=== PATIENT | female | born 1960 | race Caucasian/White ===

== ENCOUNTER → 2017-01-29 | Outpatient (CLI) | payer MEDICARE, OTHER ==
[2017-01-29 12:30] LABS: Basophils # (auto) 0 uL; Basophils % (auto) 0.3 % (0.0-2.0); Eosinophils # (auto) 0.1 uL; Eosinophils % (auto) 1.8 % (0.0-7.0); Hematocrit 37.2 % (36.0-46.0); Hemoglobin 12.5 g/dL (12.2-16.2); Lymphocytes # (auto) 1.6 uL; Lymphocytes % (auto) 26.5 % (10.0-50.0); Mean Corpuscular Hemoglobin 31.2 pg (28.0-32.0); Mean Corpuscular Hgb Conc. 33.6 g/dL (32.0-36.0); Mean Corpuscular Volume 92.7 fL (80.0-100.0); Mean Platelet Volume 7.4 fL (7.4-10.4); Monocytes # (auto) 0.4 uL; Neutrophils % (auto) 65.4 % (37.0-80.0); Platelet Count (auto) 303 10^3/uL (140-450); White Blood Cell 6.1 10^3/uL (4.4-10.8)
[2017-01-29 12:43] LABS: Albumin 3.4 g/dL (3.4-5.0); Alkaline Phosphatase 78 U/L (45-117); Anion Gap 7 (5-15); Aspartate Aminotransferase 27 U/L (15-37); BUN/Creatinine Ratio 19.2; Bilirubin, Total 0.4 mg/dL (0.2-1.0); Blood Urea Nitrogen 14 mg/dL (7-18); Calcium 8.8 mg/dL (8.5-10.1); Carbon Dioxide 31 mmol/L (21-32); Chloride 103 mmol/L (98-107); Cholesterol 201 mg/dL (< 200); GFR African American 106 mL/min; GFR Non-African American 87 mL/min; Glucose 113 mg/dL (74-106); HDL Cholesterol 54 mg/dL (40-59); Potassium 3.7 mmol/L (3.5-5.1); Sodium 141 mmol/L (136-145); Triglycerides 451 mg/dL (< 150)
== END | disposition home or self-care (01) ==
LOC: LAB 11:42
DX: Z12.11 Encounter for screening for malignant neoplasm of colon (principal); I10 Essential (primary) hypertension; R56.9 Unspecified convulsions; Z68.41 Body mass index [BMI] 40.0-44.9, adult
CPT/HCPCS: 36415; 80053; 80061; 80156; 83036; 85025

== ENCOUNTER 2020-07-03 12:19 | Emergency (ER) | payer OTHER, MEDICAID ==
[~2020-07-03] VITALS: Ht 165.1 cm; Wt 108.9 kg
[2020-07-03 15:53] VITALS: BP 111/47
== END 2020-07-03 17:50 | disposition left against medical advice (07) ==
LOC: ER 12:19
DX: R60.0 Localized edema (principal); I10 Essential (primary) hypertension
CPT/HCPCS: 93971

== ENCOUNTER 2020-08-28 11:39 | Emergency (ER) | payer OTHER, MEDICAID ==
[~2020-08-28] VITALS: Ht 157.5 cm; Wt 113.9 kg
[2020-08-28 11:49] VITALS: BP 136/88
[2020-08-28] MEDS ORDERED: KETOROLAC TROMETH 60MG/2ML VIAL IM ONE (14:15)
== END 2020-08-28 14:38 | disposition home or self-care (01) ==
LOC: ER 11:39
DX: M54.16 Radiculopathy, lumbar region (principal); I10 Essential (primary) hypertension
CPT/HCPCS: 93971; 99284; J1885

== ENCOUNTER 2020-08-31 22:11 | Emergency (ER) | payer OTHER, MEDICAID ==
[~2020-08-31] VITALS: Ht 167.6 cm; Wt 113.4 kg
[2020-09-01 01:13] VITALS: BP 148/55
[2020-09-01] MEDS ORDERED: KETOROLAC TROMETH 60MG/2ML VIAL IM ONE (01:15)
[2020-09-01] MEDS ORDERED: methylPREDNISolone SOD SUCC 125 MG/2 ML VL IM ONE (01:15)
== END 2020-09-01 02:36 | disposition home or self-care (01) ==
LOC: ER 22:11 → EDBD 22:11 → ER 09-01 02:36
DX: M25.80 Other specified joint disorders, unspecified joint (principal); M51.36 Other intervertebral disc degeneration, lumbar region; M47.896 Other spondylosis, lumbar region; M54.42 Lumbago with sciatica, left side; M77.8 Other enthesopathies, not elsewhere classified
CPT/HCPCS: 70450; 72125; 96372; 99285; J1885; J2930

== ENCOUNTER 2020-09-01 10:01 | Emergency (ER) | payer OTHER, MEDICAID ==
[~2020-09-01] VITALS: Ht 167.6 cm; Wt 113.4 kg
[2020-09-01 10:03] VITALS: BP 128/74
[2020-09-01] MEDS ORDERED: HYDROcodone-ACET 7.5/325MG TAB PO ONE (10:30)
[2020-09-01] MEDS ORDERED: HYDROcodone-ACET 5/325MG TAB PO ONE (11:00)
== END 2020-09-01 12:00 | disposition home or self-care (01) ==
LOC: ER 10:01
DX: S00.81XA Abrasion of other part of head, initial encounter (principal); S00.83XA Contusion of other part of head, initial encounter; I10 Essential (primary) hypertension; M51.37 Other intervertebral disc degeneration, lumbosacral region; M54.16 Radiculopathy, lumbar region; W19.XXXA Unspecified fall, initial encounter; Y93.89 Activity, other specified; Y92.89 Other specified places as the place of occurrence of the external cause; Y99.8 Other external cause status

== ENCOUNTER 2021-07-22 14:13 | Emergency (ER) | payer OTHER, MEDICAID ==
[~2021-07-22] VITALS: Ht 165.1 cm; Wt 108.9 kg
[2021-07-22] MEDS ORDERED: LORazepam 2MG/ML-1ML VIAL IV ONE (14:45)
[2021-07-22 15:05] LABS: Basophils # (auto) 0 10 ^3/uL (0-0.2); Basophils % (auto) 0.2 % (0.0-2.0); Eosinophils # (auto) 0 10 ^3/uL (0-0.8); Hematocrit 30.2 % (36.0-46.0); Lymphocytes # (auto) 0.6 10 ^3/uL (0.4-5.4); Lymphocytes % (auto) 5.3 % (10.0-50.0); Mean Corpuscular Hemoglobin 30.9 pg (28.0-32.0); Mean Corpuscular Hgb Conc. 33.1 g/dL (32.0-36.0); Mean Corpuscular Volume 93.4 fL (80.0-100.0); Monocytes % (auto) 8.6 % (0.0-12.0); Neutrophils # (auto) 9.9 10 ^3/uL (1.6-8.6); Neutrophils % (auto) 85.9 % (37.0-80.0); Red Blood Cells 3.23 10^6/uL (4.0-5.20); Red Cell Distribution Width 13.3 % (11.8-14.3); White Blood Cell 11.5 10^3/uL (4.4-10.8)
[2021-07-22 15:19] LABS: Urine Bacteria FEW /hpf (None Seen); Urine Blood Negative /uL (Negative); Urine Specific Gravity 1.023 (1.001-1.035); Urine WBC 1 /hpf (0 - 5)
[2021-07-22 15:29] LABS: Alcohol, Urine < 3.0 mg/dL (0-10); Amphetamine Screen, Urine NEGATIVE (NEGATIVE); Barbiturate Scree,Urine NEGATIVE (NEGATIVE); Benzodiazephine Screen, Urine NEGATIVE (NEGATIVE); Cannabinoid Screen, Urine POSITIVE (NEGATIVE); Cocaine Screen, Urine NEGATIVE (NEGATIVE); Opiate Scree,Urine NEGATIVE (NEGATIVE); Phencyclidine Screen, Urine NEGATIVE (NEGATIVE)
[2021-07-22 15:29] LABS: Albumin 3.3 g/dL (3.4-5.0); Anion Gap 6 (5-15); Blood Alcohol < 3.0 mg/dL (0-5); Blood Urea Nitrogen 22 mg/dL (7-18); Calcium 9.3 mg/dL (8.5-10.1); Carbon Dioxide 25 mmol/L (21-32); Chloride 111 mmol/L (98-107); Glucose 179 mg/dL (74-106); Potassium 3.5 mmol/L (3.5-5.1); Sodium 142 mmol/L (136-145)
[2021-07-22 15:33] LABS: Alanine Aminotransferase 39 U/L (13-56); Alkaline Phosphatase 32 U/L (45-117); Aspartate Aminotransferase 66 U/L (15-37); Bilirubin, Total 1.2 mg/dL (0.2-1.0); GFR African American 72 mL/min; GFR Non-African American 60 mL/min
[2021-07-22 15:41] LABS: Lactic Acid w/Reflex 2.3 mmol/L (0.4-2.0)
[2021-07-22] MEDS ORDERED: ETOMIDATE (2MG/ML) 20ML VIAL IV ONE (16:00)
[2021-07-22] MEDS ORDERED: SUCCINYLCHOLINE CHLORIDE 20 MG/ML 10ML VIAL IV ONE (16:00)
[2021-07-22] MEDS ORDERED: PROPOFOL 100 ML IV ONE (16:12)
[2021-07-22] MEDS ORDERED: PROPOFOL 100 ML IV SCH (16:30)
[2021-07-22 16:51] VITALS: BP 153/54
== END 2021-07-22 17:05 | disposition home or self-care (01) ==
LOC: EDBD 14:13 → EDUNIT# 14:13 → ER 14:13
DX: S06.6X9A Traumatic subarachnoid hemorrhage with loss of consciousness of unspecified duration, initial encounter (principal); S06.5X0A Traumatic subdural hemorrhage without loss of consciousness, initial encounter; R41.82 Altered mental status, unspecified; F10.10 Alcohol abuse, uncomplicated; I10 Essential (primary) hypertension; W18.39XA Other fall on same level, initial encounter; Y93.89 Activity, other specified; Y92.89 Other specified places as the place of occurrence of the external cause; Y99.8 Other external cause status; Y90.0 Blood alcohol level of less than 20 mg/100 ml
CPT/HCPCS: 31500; 36415; 36600; 70450; 71045; 72125; 72192; 73552; 73610; 80053; 80307; 80320; 81001; 82805; 83605; 84484; 85025; 87040; 87070; 87205; 93005; 96374; 99291; J0330; J2060; J2704; 94002

== ENCOUNTER 2021-07-28 17:51 | Inpatient (IN) | payer OTHER, MEDICAID ==
[~2021-07-28] VITALS: Ht 165.1 cm; Wt 110.7 kg
[2021-07-28 22:10] LABS: Hemoglobin 9.3 g/dL (12.2-16.2)
[2021-07-28 22:12] LABS: Hematocrit 27.4 % (36.0-46.0); Mean Corpuscular Hemoglobin 31.4 pg (28.0-32.0); Mean Corpuscular Hgb Conc. 33.9 g/dL (32.0-36.0); Mean Corpuscular Volume 92.7 fL (80.0-100.0); Red Blood Cells 2.95 10^6/uL (4.0-5.20); Red Cell Distribution Width 13.4 % (11.8-14.3); White Blood Cell 10.2 10^3/uL (4.4-10.8)
[2021-07-28 22:14] LABS: Alanine Aminotransferase 41 U/L (13-56); Anion Gap 8 (5-15); Aspartate Aminotransferase 34 U/L (15-37); BUN/Creatinine Ratio 24.2; Blood Alcohol < 3.0 mg/dL (0-5); Blood Urea Nitrogen 22 mg/dL (7-18); Calcium 9.4 mg/dL (8.5-10.1); Carbon Dioxide 26 mmol/L (21-32); Chloride 105 mmol/L (98-107); GFR African American 81 mL/min; GFR Non-African American 67 mL/min; Glucose 92 mg/dL (74-106); Potassium 3.7 mmol/L (3.5-5.1); Sodium 139 mmol/L (136-145)
[2021-07-28 22:15] LABS: Basophils % (manual) 0 (0.0-2.0); Blast Cells 0; Eosinophils % (manual) 0 (0-7); Myelocytes % 0; Promyelocytes % 0; Reactive Lymphocytes 0
[2021-07-28 22:17] LABS: Alkaline Phosphatase 55 U/L (45-117); Bilirubin, Total 1.1 mg/dL (0.2-1.0)
[2021-07-28 23:13] LABS: Band Neutrophils % (manual) 2; Lymphocytes % (manual) 9 (10.0-50.0); Metamyelocytes % 1; Monocytes % (manual) 5 (0-12)
[2021-07-29] MEDS ORDERED: MORPHINE SULFATE INJECTION 2 MG/ML SYRG IV PRN (04:15)
[2021-07-29] MEDS ORDERED: DOCUSATE SOD 100 MG CAP PO PRN (04:15)
[2021-07-29] MEDS ORDERED: D5W/SOD CHL 0.45% 1,000 ML IV SCH (04:15)
[2021-07-29] MEDS ORDERED: NITROGLYCERIN 0.4 MG SL TAB SL PRN (04:15)
[2021-07-29] MEDS ORDERED: ONDANSETRON HCL 4 MG/2 ML VIAL IV PRN (04:15)
[2021-07-29] MEDS ORDERED: LORazepam 2MG/ML-1ML VIAL IV PRN ×2 (04:45→17:30)
[2021-07-29 05:06] LABS: Urine Bacteria NONE SEEN /hpf (None Seen); Urine Blood Negative /uL (Negative); Urine Mucus FEW (None Seen); Urine Specific Gravity 1.023 (1.001-1.035); Urine WBC 2 /hpf (0 - 5)
[2021-07-29] MEDS: HYDROcodone-ACET 5/325MG TAB PO PRN ×3 (05:45→17:57)
[2021-07-29 06:14] LABS: Basophils # (auto) 0 10 ^3/uL (0-0.2); Basophils % (auto) 0.3 % (0.0-2.0); Eosinophils # (auto) 0 10 ^3/uL (0-0.8); Eosinophils % (auto) 0.5 % (0.0-7.0); Hematocrit 25.9 % (36.0-46.0); Hemoglobin 8.9 g/dL (12.2-16.2); Lymphocytes # (auto) 1.2 10 ^3/uL (0.4-5.4); Lymphocytes % (auto) 11.5 % (10.0-50.0); Mean Corpuscular Hemoglobin 32.1 pg (28.0-32.0); Mean Corpuscular Hgb Conc. 34.5 g/dL (32.0-36.0); Mean Corpuscular Volume 92.9 fL (80.0-100.0); Monocytes % (auto) 9.8 % (0.0-12.0); Neutrophils % (auto) 77.9 % (37.0-80.0); Nucleated Red Blood Cells % 0.1 %; Red Blood Cells 2.79 10^6/uL (4.0-5.20); Red Cell Distribution Width 13.2 % (11.8-14.3); White Blood Cell 10.2 10^3/uL (4.4-10.8)
[2021-07-29 06:20] LABS: Albumin 2.8 g/dL (3.4-5.0); Calcium 8.8 mg/dL (8.5-10.1); Magnesium 2.4 mg/dL (1.6-2.6); Potassium 3.5 mmol/L (3.5-5.1)
[2021-07-29 06:24] LABS: Total Protein 6.8 g/dL (6.4-8.2)
[2021-07-29] MEDS ORDERED: FAMOTIDINE (10MG/ML) 2ML VL IV SCH (10:00)
[2021-07-29] MEDS ORDERED: ASCORBIC ACID 500 MG TAB PO SCH (10:00)
[2021-07-29 10:11] LABS: Albumin 2.7 g/dL (3.4-5.0); Calcium 8.9 mg/dL (8.5-10.1); Potassium 3.3 mmol/L (3.5-5.1)
[2021-07-29 10:12] LABS: Basophils # (auto) 0 10 ^3/uL (0-0.2); Basophils % (auto) 0.4 % (0.0-2.0); Eosinophils # (auto) 0 10 ^3/uL (0-0.8); Eosinophils % (auto) 0.4 % (0.0-7.0); Hematocrit 26.4 % (36.0-46.0); Lymphocytes # (auto) 1.6 10 ^3/uL (0.4-5.4); Mean Corpuscular Hemoglobin 31.4 pg (28.0-32.0); Mean Corpuscular Volume 92.5 fL (80.0-100.0); Monocytes % (auto) 10.1 % (0.0-12.0); Neutrophils # (auto) 7.5 10 ^3/uL (1.6-8.6); Neutrophils % (auto) 73.1 % (37.0-80.0); Red Blood Cells 2.85 10^6/uL (4.0-5.20); Red Cell Distribution Width 13.5 % (11.8-14.3); White Blood Cell 10.3 10^3/uL (4.4-10.8)
[2021-07-29 10:14] LABS: Total Protein 6.8 g/dL (6.4-8.2)
[2021-07-29] MEDS: ZINC SULFATE 220mg CAP or TAB PO SCH (10:15)
[2021-07-29] MEDS: MULTIPLE VITAMIN TAB PO SCH (10:15)
[2021-07-29] MEDS ORDERED: POTASSIUM CHL 20 Meq TABLET PO ONE (16:15)
[2021-07-29] MEDS ORDERED: THIAMINE HCL 100 MG TAB PO ONE (16:15)
[2021-07-29] MEDS ORDERED: FOLIC ACID 1 MG TAB PO ONE (16:15)
[2021-07-29 16:32] LABS: Alcohol, Urine < 3.0 mg/dL (0-10); Amphetamine Screen, Urine NEGATIVE (NEGATIVE); Barbiturate Scree,Urine NEGATIVE (NEGATIVE); Benzodiazephine Screen, Urine POSITIVE (NEGATIVE); Cannabinoid Screen, Urine POSITIVE (NEGATIVE); Cocaine Screen, Urine NEGATIVE (NEGATIVE); Opiate Scree,Urine NEGATIVE (NEGATIVE); Phencyclidine Screen, Urine NEGATIVE (NEGATIVE)
[2021-07-29 17:33] LABS: Folate (Folic Acid) > 24.00 ng/mL (5.38-24)
[2021-07-29] MEDS: ACETAMINOPHEN 325 MG TAB PO PRN (20:31)
[2021-07-29] MEDS: FAMOTIDINE 20 MG TAB PO SCH (22:00)
[2021-07-29] MEDS: carBAMazepine 200 MG TAB PO SCH (22:00)
[2021-07-30 01:06] VITALS: BP 145/61
[2021-07-30] MEDS: HYDROcodone-ACET 5/325MG TAB PO PRN ×3 (01:09→16:35)
[2021-07-30] MEDS ORDERED: ENAL10TA13 PO (01:30)
[2021-07-30] MEDS ORDERED: CEPH500C PO (01:30)
[2021-07-30] MEDS ORDERED: AMLO-489 PO (01:30)
[2021-07-30] MEDS ORDERED: GAB100C PO (01:30)
[2021-07-30] MEDS ORDERED: BACL20TA PO (01:30)
[2021-07-30] MEDS ORDERED: ASPI-325 PO (01:30)
[2021-07-30] MEDS ORDERED: HYDR-4072 (01:30)
[2021-07-30] MEDS ORDERED: FLUO40CA PO (01:30)
[2021-07-30] MEDS ORDERED: NABU500T3 PO (01:30)
[2021-07-30] MEDS ORDERED: CARB200T4 PO (01:30)
[2021-07-30] MEDS ORDERED: MAGN241.6 PO (01:30)
[2021-07-30] MEDS ORDERED: POTA-167 (01:30)
[2021-07-30 05:00] VITALS: BP 138/80
[2021-07-30] MEDS: carBAMazepine 200 MG TAB PO SCH ×3 (05:03→20:29)
[2021-07-30 06:38] LABS: Albumin 2.4 g/dL (3.4-5.0); Calcium 8.8 mg/dL (8.5-10.1); Potassium 4.1 mmol/L (3.5-5.1)
[2021-07-30 06:43] LABS: BUN/Creatinine Ratio 18.5; Bilirubin, Total 0.8 mg/dL (0.2-1.0); Total Protein 5.8 g/dL (6.4-8.2)
[2021-07-30 07:13] LABS: Hematocrit 25.7 % (36.0-46.0); Hemoglobin 8.7 g/dL (12.2-16.2); Mean Corpuscular Hemoglobin 31.5 pg (28.0-32.0); Mean Corpuscular Volume 92.6 fL (80.0-100.0); Red Blood Cells 2.77 10^6/uL (4.0-5.20); Red Cell Distribution Width 13.5 % (11.8-14.3); White Blood Cell 8.7 10^3/uL (4.4-10.8)
[2021-07-30 07:17] LABS: Basophils % (manual) 0 (0.0-2.0); Blast Cells 0; Metamyelocytes % 0; Myelocytes % 0; Promyelocytes % 0; Reactive Lymphocytes 0
[2021-07-30 09:00] VITALS: BP 131/64
[2021-07-30] MEDS: THIAMINE HCL 100 MG TAB PO SCH (10:00)
[2021-07-30] MEDS: ZINC SULFATE 220mg CAP or TAB PO SCH (11:35)
[2021-07-30] MEDS: MULTIPLE VITAMIN TAB PO SCH (11:37)
[2021-07-30] MEDS: FOLIC ACID 1 MG TAB PO SCH (11:38)
[2021-07-30] MEDS: FAMOTIDINE 20 MG TAB PO SCH ×2 (11:38→20:29)
[2021-07-30 12:33] LABS: Band Neutrophils % (manual) 3; Eosinophils % (manual) 1 (0-7); Lymphocytes % (manual) 14 (10.0-50.0); Monocytes % (manual) 6 (0-12)
[2021-07-30 13:00] VITALS: BP 142/69
[2021-07-30 17:00] VITALS: BP 143/76
[2021-07-30] MEDS: ATORVASTATIN 20 MG TAB PO SCH (20:29)
[2021-07-30] MEDS: ACETAMINOPHEN 325 MG TAB PO PRN (22:20)
[2021-07-30] MEDS: chlordiazePOXIDE HCL 5 MG CAP PO PRN (22:20)
[2021-07-30 23:40] VITALS: BP 135/52
[2021-07-31] MEDS: HYDROcodone-ACET 5/325MG TAB PO PRN ×3 (01:30→18:00)
[2021-07-31 05:31] VITALS: BP 132/54
[2021-07-31] MEDS: carBAMazepine 200 MG TAB PO SCH ×3 (05:43→22:00)
[2021-07-31 08:48] VITALS: BP 152/81
[2021-07-31] MEDS: MULTIPLE VITAMIN TAB PO SCH (10:00)
[2021-07-31] MEDS: THIAMINE HCL 100 MG TAB PO SCH (10:00)
[2021-07-31] MEDS: ZINC SULFATE 220mg CAP or TAB PO SCH (10:00)
[2021-07-31] MEDS: FOLIC ACID 1 MG TAB PO SCH (10:00)
[2021-07-31] MEDS: FAMOTIDINE 20 MG TAB PO SCH ×2 (10:00→22:00)
[2021-07-31 17:14] VITALS: BP 134/69
[2021-07-31] MEDS: ATORVASTATIN 20 MG TAB PO SCH (21:59)
[2021-07-31 22:00] VITALS: BP 135/57
[2021-08-01] MEDS: HYDROcodone-ACET 5/325MG TAB PO PRN ×5 (00:06→21:05)
[2021-08-01 05:00] VITALS: BP 123/71
[2021-08-01] MEDS: carBAMazepine 200 MG TAB PO SCH ×3 (06:19→21:53)
[2021-08-01 09:00] VITALS: BP 142/55
[2021-08-01] MEDS: MULTIPLE VITAMIN TAB PO SCH (11:07)
[2021-08-01] MEDS: FOLIC ACID 1 MG TAB PO SCH (11:07)
[2021-08-01] MEDS: THIAMINE HCL 100 MG TAB PO SCH (11:07)
[2021-08-01] MEDS: FAMOTIDINE 20 MG TAB PO SCH ×2 (11:07→21:54)
[2021-08-01] MEDS: ZINC SULFATE 220mg CAP or TAB PO SCH (11:07)
[2021-08-01 13:00] VITALS: BP 109/81
[2021-08-01 16:57] VITALS: BP 127/72
[2021-08-01] MEDS: ATORVASTATIN 20 MG TAB PO SCH (21:53)
[2021-08-01 22:00] VITALS: BP 136/89
[2021-08-01] MEDS: ACETAMINOPHEN 325 MG TAB PO PRN (22:03)
[2021-08-02 05:00] VITALS: BP 115/59
[2021-08-02] MEDS: HYDROcodone-ACET 5/325MG TAB PO PRN ×4 (06:04→21:19)
[2021-08-02] MEDS: carBAMazepine 200 MG TAB PO SCH ×3 (06:04→21:12)
[2021-08-02 09:00] VITALS: BP 121/61
[2021-08-02] MEDS: MULTIPLE VITAMIN TAB PO SCH (11:06)
[2021-08-02] MEDS: ZINC SULFATE 220mg CAP or TAB PO SCH (11:06)
[2021-08-02] MEDS: FAMOTIDINE 20 MG TAB PO SCH ×2 (11:06→21:12)
[2021-08-02] MEDS: THIAMINE HCL 100 MG TAB PO SCH (11:06)
[2021-08-02 13:00] VITALS: BP 113/76
[2021-08-02 16:51] VITALS: BP 122/61
[2021-08-02] MEDS: ATORVASTATIN 20 MG TAB PO SCH (21:12)
[2021-08-02] MEDS: DOXYCYCLINE 100 MG TAB/CAP PO SCH (21:13)
[2021-08-02 22:00] VITALS: BP 140/66
[2021-08-03] MEDS: ACETAMINOPHEN 325 MG TAB PO PRN (01:22)
[2021-08-03] MEDS: HYDROcodone-ACET 5/325MG TAB PO PRN ×5 (02:37→23:56)
[2021-08-03 05:00] VITALS: BP 135/61
[2021-08-03] MEDS: carBAMazepine 200 MG TAB PO SCH ×3 (05:55→20:45)
[2021-08-03 09:00] VITALS: BP 155/81
[2021-08-03] MEDS: MULTIPLE VITAMIN TAB PO SCH (09:24)
[2021-08-03] MEDS: FAMOTIDINE 20 MG TAB PO SCH ×2 (09:24→20:45)
[2021-08-03] MEDS: DOXYCYCLINE 100 MG TAB/CAP PO SCH ×2 (09:25→20:45)
[2021-08-03] MEDS: THIAMINE HCL 100 MG TAB PO SCH (09:25)
[2021-08-03 13:00] VITALS: BP 130/65
[2021-08-03] MEDS ORDERED: levoFLOXacin 500 MG TAB PO ONE (16:00)
[2021-08-03 16:59] LABS: Urine Amorphous Crystal FEW /hpf (None Seen); Urine Bacteria NONE SEEN /hpf (None Seen); Urine Blood Negative /uL (Negative); Urine Hyaline Cast FEW /lpf (0 - 2); Urine Mucus FEW (None Seen); Urine Specific Gravity 1.031 (1.001-1.035); Urine WBC 3 /hpf (0 - 5)
[2021-08-03 17:00] VITALS: BP 117/99
[2021-08-03] MEDS: chlordiazePOXIDE HCL 5 MG CAP PO PRN (20:44)
[2021-08-03] MEDS: ATORVASTATIN 20 MG TAB PO SCH (20:45)
[2021-08-03 22:18] VITALS: BP 111/57
[2021-08-04] MEDS: carBAMazepine 200 MG TAB PO SCH ×3 (05:17→21:40)
[2021-08-04] MEDS: HYDROcodone-ACET 5/325MG TAB PO PRN ×4 (05:17→19:55)
[2021-08-04 05:30] VITALS: BP 138/78
[2021-08-04 08:45] VITALS: BP 129/79
[2021-08-04] MEDS: THIAMINE HCL 100 MG TAB PO SCH (09:15)
[2021-08-04] MEDS: levoFLOXacin 500 MG TAB PO SCH (09:15)
[2021-08-04] MEDS: ASPirin-EC 81 mg tab PO SCH (09:15)
[2021-08-04] MEDS: DOXYCYCLINE 100 MG TAB/CAP PO SCH ×2 (09:16→21:40)
[2021-08-04] MEDS: MULTIPLE VITAMIN TAB PO SCH (09:16)
[2021-08-04] MEDS: FAMOTIDINE 20 MG TAB PO SCH ×2 (09:16→21:40)
[2021-08-04 13:00] VITALS: BP 109/50
[2021-08-04] MEDS: chlordiazePOXIDE HCL 5 MG CAP PO PRN (15:46)
[2021-08-04 17:00] VITALS: BP 131/105
[2021-08-04] MEDS: ACETAMINOPHEN 325 MG TAB PO PRN (21:11)
[2021-08-04] MEDS: ATORVASTATIN 20 MG TAB PO SCH (21:40)
[2021-08-04 22:00] VITALS: BP 121/49
[2021-08-05] MEDS: HYDROcodone-ACET 5/325MG TAB PO PRN ×5 (00:06→17:34)
[2021-08-05 05:00] VITALS: BP 120/56
[2021-08-05] MEDS: carBAMazepine 200 MG TAB PO SCH ×2 (06:07→13:35)
[2021-08-05 09:50] VITALS: BP 115/62
[2021-08-05] MEDS: levoFLOXacin 500 MG TAB PO SCH (10:00)
[2021-08-05] MEDS: DOXYCYCLINE 100 MG TAB/CAP PO SCH (10:00)
[2021-08-05] MEDS: FAMOTIDINE 20 MG TAB PO SCH (10:00)
[2021-08-05] MEDS: MULTIPLE VITAMIN TAB PO SCH (10:00)
[2021-08-05] MEDS: ASPirin-EC 81 mg tab PO SCH (10:00)
[2021-08-05] MEDS: THIAMINE HCL 100 MG TAB PO SCH (10:00)
[2021-08-05 13:05] VITALS: BP 121/70
[2021-08-05] MEDS: chlordiazePOXIDE HCL 5 MG CAP PO PRN (13:35)
[2021-08-05 17:02] VITALS: BP 127/60
[2021-08-05 17:39] VITALS: BP 127/60
== END 2021-08-05 21:30 | DRG 57 ==
LOC: EDBD 17:51 → ER 17:51 → TELE 07-29 04:08 → TELE-WESTW 07-29 23:22 → WEST WING 07-31 15:19
PROVIDERS: ADMIT Nurse Practitioner Family; ATTEND Internal Medicine
DX: I69.098 Other sequelae following nontraumatic subarachnoid hemorrhage (principal); N39.0 Urinary tract infection, site not specified; Z68.41 Body mass index [BMI] 40.0-44.9, adult; S92.342A Displaced fracture of fourth metatarsal bone, left foot, initial encounter for closed fracture; S92.355A Nondisplaced fracture of fifth metatarsal bone, left foot, initial encounter for closed fracture; D64.9 Anemia, unspecified; E88.09 Other disorders of plasma-protein metabolism, not elsewhere classified; I10 Essential (primary) hypertension; G40.401 Other generalized epilepsy and epileptic syndromes, not intractable, with status epilepticus; E66.9 Obesity, unspecified; Z20.822 Contact with and (suspected) exposure to COVID-19; W18.39XA Other fall on same level, initial encounter; S92.322A Displaced fracture of second metatarsal bone, left foot, initial encounter for closed fracture; S92.332A Displaced fracture of third metatarsal bone, left foot, initial encounter for closed fracture; R41.82 Altered mental status, unspecified; E78.5 Hyperlipidemia, unspecified; R55 Syncope and collapse; F17.200 Nicotine dependence, unspecified, uncomplicated; Z82.49 Family history of ischemic heart disease and other diseases of the circulatory system; Z79.899 Other long term (current) drug therapy; Z83.3 Family history of diabetes mellitus; Y93.89 Activity, other specified; Y92.89 Other specified places as the place of occurrence of the external cause; Y99.8 Other external cause status; S02.2XXD Fracture of nasal bones, subsequent encounter for fracture with routine healing
CPT/HCPCS: 36415; 70450; 70486; 72125; 73630; 73700; 80053; 80061; 80156; 80307; 80320; 81001; 82306; 82607; 82746; 83605; 83735; 85007; 85025; 85027; 87081; 87086; 87426; 93005; 93970; 95819; 96361; 96374; 97110; 97163; 97530; G0378; J3490; J7042

== ENCOUNTER 2021-10-04 11:07 | Inpatient (IN) | payer OTHER, MEDICAID ==
[~2021-10-04] VITALS: Ht 162.6 cm; Wt 109.1 kg
[~2021-10-04 11:07] MED LIST: AMLO-489 PO; ASPI-325 PO; BACL20TA PO; CARB200T4 PO; CEPH500C PO; ENAL10TA13 PO; FLUO40CA PO; GAB100C PO; HYDR-4072; MAGN241.6 PO; NABU500T3 PO; POTA-167
[2021-10-04] MEDS ORDERED: LORazepam 2MG/ML-1ML VIAL ONE (13:12)
[2021-10-04] MEDS ORDERED: HALOPERIDOL LACTATE 5 MG/ML INJ VIAL ONE (13:12)
[2021-10-04] MEDS ORDERED: LORazepam 2MG/ML-1ML VIAL IV ONE ×3 (13:15→17:00)
[2021-10-04] MEDS ORDERED: HALOPERIDOL LACTATE 5 MG/ML INJ VIAL IM ONE ×2 (13:15→16:30)
[2021-10-04] MEDS ORDERED: SODIUM CHLORIDE 0.9% 1,000 ML IV ONE (14:15)
[2021-10-04 14:20] LABS: Basophils # (auto) 0 10 ^3/uL (0-0.2); Basophils % (auto) 0.1 % (0.0-2.0); Eosinophils # (auto) 0 10 ^3/uL (0-0.8); Eosinophils % (auto) 0.1 % (0.0-7.0); Hematocrit 35.5 % (36.0-46.0); Hemoglobin 11.8 g/dL (12.2-16.2); Lymphocytes # (auto) 0.5 10 ^3/uL (0.4-5.4); Lymphocytes % (auto) 5.9 % (10.0-50.0); Mean Corpuscular Hgb Conc. 33.1 g/dL (32.0-36.0); Mean Corpuscular Volume 87.5 fL (80.0-100.0); Monocytes # (auto) 0.5 10 ^3/uL (0-1.3); Monocytes % (auto) 5.1 % (0.0-12.0); Neutrophils % (auto) 88.8 % (37.0-80.0); Red Blood Cells 4.06 10^6/uL (4.0-5.20); Red Cell Distribution Width 13.4 % (11.8-14.3)
[2021-10-04 14:46] LABS: Albumin 3.5 g/dL (3.4-5.0); Anion Gap 3 (5-15); Blood Urea Nitrogen 19 mg/dL (7-18); Calcium 8.8 mg/dL (8.5-10.1); Carbon Dioxide 30 mmol/L (21-32); Chloride 109 mmol/L (98-107); Glucose 110 mg/dL (74-106); Magnesium 2.6 mg/dL (1.6-2.6); Potassium 3.3 mmol/L (3.5-5.1); Sodium 142 mmol/L (136-145)
[2021-10-04 14:54] LABS: Alanine Aminotransferase 45 U/L (13-56); Alkaline Phosphatase 37 U/L (45-117); Aspartate Aminotransferase 116 U/L (15-37); BUN/Creatinine Ratio 17.3; Bilirubin, Total 0.4 mg/dL (0.2-1.0); Blood Alcohol < 3.0 mg/dL (0-5); GFR African American 65 mL/min; GFR Non-African American 53 mL/min; Total Protein 6.8 g/dL (6.4-8.2)
[2021-10-04 14:58] LABS: Urine Bacteria FEW /hpf (None Seen); Urine Blood Negative /uL (Negative); Urine Hyaline Cast MOD /lpf (0 - 2); Urine Specific Gravity 1.011 (1.001-1.035); Urine WBC <1 /hpf (0 - 5)
[2021-10-04 15:01] LABS: Alcohol, Urine < 3.0 mg/dL (0-10); Amphetamine Screen, Urine NEGATIVE (NEGATIVE); Barbiturate Scree,Urine NEGATIVE (NEGATIVE); Benzodiazephine Screen, Urine NEGATIVE (NEGATIVE); Cannabinoid Screen, Urine POSITIVE (NEGATIVE); Cocaine Screen, Urine NEGATIVE (NEGATIVE); Opiate Scree,Urine NEGATIVE (NEGATIVE); Phencyclidine Screen, Urine NEGATIVE (NEGATIVE)
[2021-10-04] MEDS ORDERED: MORPHINE SULFATE INJECTION 2 MG/ML SYRG IV PRN ×3 (18:15→22:15)
[2021-10-04] MEDS ORDERED: NITROGLYCERIN 0.4 MG SL TAB SL PRN ×2 (18:15→22:15)
[2021-10-04] MEDS ORDERED: POTASSIUM CHL 20MEQ/50ML 50 ML IV ONE (21:30)
[2021-10-04] MEDS: SODIUM CHLORIDE 0.9% 1,000 ML IV SCH (21:45)
[2021-10-04] MEDS: ATORVASTATIN 20 MG TAB PO SCH ×2 (22:00→23:00)
[2021-10-04] MEDS ORDERED: DOCUSATE SOD 100 MG CAP PO PRN (22:15)
[2021-10-04] MEDS ORDERED: ALUM & MAG HYDROX-SIMETH LIQ(MAALOX) 30 ML PO PRN (22:15)
[2021-10-04] MEDS ORDERED: ACETAMINOPHEN 325 MG TAB PO PRN (22:15)
[2021-10-04] MEDS ORDERED: SODIUM CHLORIDE 0.9% 1,000 ML IV SCH (22:15)
[2021-10-04] MEDS ORDERED: CLINDAMYCIN 600MG IV 50 ML IV ONE (22:15)
[2021-10-04] MEDS ORDERED: hydrALAZINE HCL 20 MG/ML VL IV PRN (22:15)
[2021-10-04] MEDS ORDERED: ONDANSETRON HCL 4 MG/2 ML VIAL IV PRN (22:15)
[2021-10-04] MEDS ORDERED: cefTRIAXone 1GM/50ML D5W 50 ML IV ONE (22:15)
[2021-10-04] MEDS: GABAPENTIN 100 MG CAP PO SCH ×2 (22:48→23:00)
[2021-10-04] MEDS: carBAMazepine 200 MG TAB PO SCH ×2 (22:49→23:00)
[2021-10-04] MEDS: diazePAM 5 MG TAB PO ONE ×2 (22:49→23:00)
[2021-10-04 23:22] LABS: Cholesterol 211 mg/dL (< 200); HDL Cholesterol 68 mg/dL (40-59); LDL Cholesterol 111 mg/dL (< 100); Triglycerides 138 mg/dL (< 150)
[2021-10-05] MEDS ORDERED: diphenhdrAMINE HCL 50 MG/1 ML VL IV ONE ×3 (03:00→13:37)
[2021-10-05 03:38] LABS: Basophils # (auto) 0 10 ^3/uL (0-0.2); Basophils % (auto) 0.3 % (0.0-2.0); Eosinophils # (auto) 0 10 ^3/uL (0-0.8); Hematocrit 37.9 % (36.0-46.0); Hemoglobin 12.4 g/dL (12.2-16.2); Lymphocytes # (auto) 0.9 10 ^3/uL (0.4-5.4); Lymphocytes % (auto) 8.3 % (10.0-50.0); Mean Corpuscular Hemoglobin 28.6 pg (28.0-32.0); Mean Corpuscular Hgb Conc. 32.7 g/dL (32.0-36.0); Mean Corpuscular Volume 87.7 fL (80.0-100.0); Monocytes # (auto) 0.6 10 ^3/uL (0-1.3); Neutrophils # (auto) 9.7 10 ^3/uL (1.6-8.6); Neutrophils % (auto) 86.4 % (37.0-80.0); Red Blood Cells 4.32 10^6/uL (4.0-5.20); Red Cell Distribution Width 13.5 % (11.8-14.3); White Blood Cell 11.3 10^3/uL (4.4-10.8)
[2021-10-05 03:51] LABS: Partial Thromboplastin Time 21.6 sec (23.6-33.0)
[2021-10-05 03:53] LABS: Albumin 3.7 g/dL (3.4-5.0); Calcium 9.2 mg/dL (8.5-10.1); Magnesium 2.3 mg/dL (1.6-2.6); Potassium 3.8 mmol/L (3.5-5.1); Uric Acid 4.8 mg/dL (2.6-6.0)
[2021-10-05 03:58] LABS: BUN/Creatinine Ratio 13.6; Bilirubin, Total 0.4 mg/dL (0.2-1.0); Phosphorus 1.8 mg/dL (2.5-4.90); Total Protein 7.4 g/dL (6.4-8.2)
[2021-10-05 05:29] LABS: Salicylate 4.7 mg/dL (2.8-20.0)
[2021-10-05 05:32] LABS: Acetaminophen < 2.0 ug/mL (10-30)
[2021-10-05 05:38] LABS: Carbamazepine (Tegretol) 18.7 ug/mL (4-12)
[2021-10-05] MEDS: GABAPENTIN 100 MG CAP PO SCH ×3 (06:00→22:03)
[2021-10-05] MEDS: CLINDAMYCIN 600MG IV 50 ML IV SCH ×3 (06:08→22:22)
[2021-10-05] MEDS: LORazepam 2MG/ML-1ML VIAL IV PRN ×3 (06:19→12:01)
[2021-10-05] MEDS ORDERED: cefTRIAXone 1GM/50ML D5W 50 ML IV SCH (09:00)
[2021-10-05] MEDS: FLUoxetine HCL 20 MG CAP PO SCH (10:00)
[2021-10-05] MEDS ORDERED: MAGNESIUM OXIDE 400 MG TAB PO SCH (10:00)
[2021-10-05] MEDS: ASPirin-EC 81 mg tab PO SCH (10:00)
[2021-10-05] MEDS: MULTIPLE VITAMINS W/ MINERALS TAB PO SCH (10:00)
[2021-10-05] MEDS ORDERED: POTASSIUM CHL 10 Meq TABLET PO SCH (10:00)
[2021-10-05] MEDS: HALOPERIDOL LACTATE 5 MG/ML INJ VIAL IM PRN ×2 (10:08)
[2021-10-05] MEDS: ENOXAPARIN SOD 40 MG/0.4 ML SYRINGE SC SCH (10:15)
[2021-10-05] MEDS ORDERED: diphenhdrAMINE HCL 50 MG/1 ML VL ONE ×2 (10:53→13:37)
[2021-10-05 12:15] LABS: Albumin 3.8 g/dL (3.4-5.0); BUN/Creatinine Ratio 14.4; Calcium 9.7 mg/dL (8.5-10.1); Potassium 4.1 mmol/L (3.5-5.1)
[2021-10-05 12:18] LABS: Bilirubin, Total 0.4 mg/dL (0.2-1.0); Total Protein 7.2 g/dL (6.4-8.2)
[2021-10-05] MEDS: SODIUM CHLORIDE 0.9% 1,000 ML IV SCH (14:39)
[2021-10-05 19:01] LABS: Albumin 3.2 g/dL (3.4-5.0); Calcium 8.8 mg/dL (8.5-10.1); Potassium 4.7 mmol/L (3.5-5.1)
[2021-10-05 19:04] LABS: BUN/Creatinine Ratio 15.5
[2021-10-05 19:07] LABS: Bilirubin, Total 0.4 mg/dL (0.2-1.0); Total Protein 6.4 g/dL (6.4-8.2)
[2021-10-05] MEDS: carBAMazepine 200 MG TAB PO SCH (22:00)
[2021-10-06 04:56] LABS: Basophils # (auto) 0 10 ^3/uL (0-0.2); Basophils % (auto) 0.7 % (0.0-2.0); Eosinophils # (auto) 0.1 10 ^3/uL (0-0.8); Eosinophils % (auto) 1.8 % (0.0-7.0); Hemoglobin 11.1 g/dL (12.2-16.2); Lymphocytes # (auto) 1.1 10 ^3/uL (0.4-5.4); Lymphocytes % (auto) 19.6 % (10.0-50.0); Mean Corpuscular Hemoglobin 29.5 pg (28.0-32.0); Mean Corpuscular Hgb Conc. 33.8 g/dL (32.0-36.0); Mean Corpuscular Volume 87.4 fL (80.0-100.0); Monocytes # (auto) 0.3 10 ^3/uL (0-1.3); Monocytes % (auto) 6.4 % (0.0-12.0); Neutrophils # (auto) 3.9 10 ^3/uL (1.6-8.6); Neutrophils % (auto) 71.5 % (37.0-80.0); Nucleated Red Blood Cells % 0.1 %; Red Blood Cells 3.78 10^6/uL (4.0-5.20); Red Cell Distribution Width 13.4 % (11.8-14.3); White Blood Cell 5.5 10^3/uL (4.4-10.8)
[2021-10-06 05:11] LABS: Albumin 3.1 g/dL (3.4-5.0); Potassium 3.4 mmol/L (3.5-5.1)
[2021-10-06 05:13] LABS: BUN/Creatinine Ratio 12.9
[2021-10-06 05:16] LABS: Bilirubin, Total 0.4 mg/dL (0.2-1.0); Total Protein 6.3 g/dL (6.4-8.2)
[2021-10-06] MEDS: HYDROcodone-ACET 5/325MG TAB PO PRN ×3 (07:54→20:30)
[2021-10-06] MEDS: GABAPENTIN 100 MG CAP PO SCH (09:15)
[2021-10-06] MEDS ORDERED: LORazepam 2MG/ML-1ML VIAL IV PRN (09:30)
[2021-10-06] MEDS: SODIUM CHLORIDE 0.9% 1,000 ML IV SCH ×2 (10:14→22:43)
[2021-10-06] MEDS: ASPirin-EC 81 mg tab PO SCH (10:14)
[2021-10-06] MEDS: CHOLECALCIFEROL (VITD3) 2,000 UNIT CAP/TAB PO SCH (10:14)
[2021-10-06] MEDS: MULTIPLE VITAMINS W/ MINERALS TAB PO SCH (10:14)
[2021-10-06] MEDS: FLUoxetine HCL 20 MG CAP PO SCH (10:14)
[2021-10-06] MEDS: ENOXAPARIN SOD 40 MG/0.4 ML SYRINGE SC SCH (10:15)
[2021-10-06 10:41] VITALS: BP 143/65
[2021-10-06] MEDS: FOLIC ACID 1 MG, MULTIPLE VITAMIN 10 ML, MAGNESIUM SULF SDV 50% 8 MEQ, THIAMINE INJ 100... INJ SCH ×5 (12:00)
[2021-10-06 13:00] VITALS: BP 127/66
[2021-10-06] MEDS: GABAPENTIN 300 MG CAP PO SCH ×2 (14:00→21:55)
[2021-10-06 21:30] VITALS: BP 151/80
[2021-10-06] MEDS: ATORVASTATIN 20 MG TAB PO SCH (21:54)
[2021-10-06] MEDS: LORazepam 2MG/ML-1ML VIAL IV PRN (22:38)
[2021-10-07] MEDS: HYDROcodone-ACET 5/325MG TAB PO PRN ×3 (02:24→11:44)
[2021-10-07 05:00] VITALS: BP 152/78
[2021-10-07] MEDS: GABAPENTIN 300 MG CAP PO SCH ×2 (05:31→15:27)
[2021-10-07] MEDS: carBAMazepine 200 MG TAB PO SCH ×2 (05:32→15:27)
[2021-10-07 09:00] VITALS: BP 145/53
[2021-10-07] MEDS: ENOXAPARIN SOD 40 MG/0.4 ML SYRINGE SC SCH (10:50)
[2021-10-07] MEDS: MULTIPLE VITAMINS W/ MINERALS TAB PO SCH (10:50)
[2021-10-07] MEDS: FLUoxetine HCL 20 MG CAP PO SCH (10:50)
[2021-10-07] MEDS: CHOLECALCIFEROL (VITD3) 2,000 UNIT CAP/TAB PO SCH (10:50)
[2021-10-07] MEDS: ASPirin-EC 81 mg tab PO SCH (10:50)
[2021-10-07] MEDS: LORazepam 2MG/ML-1ML VIAL IV PRN (11:01)
[2021-10-07 12:25] LABS: Magnesium 2.4 mg/dL (1.6-2.6); Potassium 3.6 mmol/L (3.5-5.1)
[2021-10-07 13:00] VITALS: BP 146/74
[2021-10-07] MEDS ORDERED: CHOL20007 PO (13:13)
[2021-10-07] MEDS ORDERED: CARB200T4 PO (13:13)
[2021-10-07] MEDS: FOLIC ACID 1 MG, MULTIPLE VITAMIN 10 ML, MAGNESIUM SULF SDV 50% 8 MEQ, THIAMINE INJ 100... INJ SCH ×5 (15:26)
[2021-10-07] MEDS: SODIUM CHLORIDE 0.9% 1,000 ML IV SCH (16:25)
[2021-10-07 16:59] VITALS: BP 155/75
== END 2021-10-07 18:11 | disposition home or self-care (01) | DRG 100 ==
LOC: ER 11:07 → EDBD 11:07 → TELE 18:11 → TELE-WESTW 10-06 10:52
PROVIDERS: ADMIT Hospitalist; ATTEND Internal Medicine
DX: G40.901 Epilepsy, unspecified, not intractable, with status epilepticus (principal); G93.41 Metabolic encephalopathy; N17.0 Acute kidney failure with tubular necrosis; N39.0 Urinary tract infection, site not specified; F11.20 Opioid dependence, uncomplicated; Z68.41 Body mass index [BMI] 40.0-44.9, adult; N18.31 Chronic kidney disease, stage 3a; E66.01 Morbid (severe) obesity due to excess calories; F32.9 Major depressive disorder, single episode, unspecified; Z20.822 Contact with and (suspected) exposure to COVID-19; F41.9 Anxiety disorder, unspecified; T42.6X5A Adverse effect of other antiepileptic and sedative-hypnotic drugs, initial encounter; K75.81 Nonalcoholic steatohepatitis (NASH); E55.9 Vitamin D deficiency, unspecified; E78.5 Hyperlipidemia, unspecified; E87.6 Hypokalemia; F10.20 Alcohol dependence, uncomplicated; I12.9 Hypertensive chronic kidney disease with stage 1 through stage 4 chronic kidney disease, or unspecified chronic kidney disease; M19.90 Unspecified osteoarthritis, unspecified site; Z83.3 Family history of diabetes mellitus; Z91.19 Patient's noncompliance with other medical treatment and regimen; Z79.899 Other long term (current) drug therapy; Z82.49 Family history of ischemic heart disease and other diseases of the circulatory system; Z87.820 Personal history of traumatic brain injury; Y93.89 Activity, other specified; Y92.89 Other specified places as the place of occurrence of the external cause; Y99.8 Other external cause status
CPT/HCPCS: 36415; 70450; 70551; 71045; 80053; 80061; 80156; 80307; 80320; 80329; 81001; 82306; 83036; 83735; 83880; 84100; 84132; 84443; 84484; 84550; 85025; 85379; 85610; 85730; 87040; 87086; 87426; 93005; 96365; 96372; 96375; 96376; 97163; G0378; J0696; J3490

== ENCOUNTER 2021-12-12 14:59 | Inpatient (IN) | payer OTHER, MEDICAID ==
[~2021-12-12] VITALS: Ht 160 cm; Wt 101.4 kg
[2021-12-12] MEDS ORDERED: SODIUM CHLORIDE 0.9% 1,000 ML IV ONE ×2 (15:15→18:30)
[2021-12-12 16:20] LABS: Urine Bacteria FEW /hpf (None Seen); Urine Blood Negative /uL (Negative); Urine Hyaline Cast FEW /lpf (0 - 2); Urine Mucus FEW (None Seen); Urine Specific Gravity 1.022 (1.001-1.035); Urine WBC 2 /hpf (0 - 5)
[2021-12-12 16:34] LABS: Alcohol, Urine < 3.0 mg/dL (0-10); Amphetamine Screen, Urine NEGATIVE (NEGATIVE); Barbiturate Scree,Urine NEGATIVE (NEGATIVE); Benzodiazephine Screen, Urine NEGATIVE (NEGATIVE); Cannabinoid Screen, Urine POSITIVE (NEGATIVE); Cocaine Screen, Urine NEGATIVE (NEGATIVE); Opiate Scree,Urine NEGATIVE (NEGATIVE); Phencyclidine Screen, Urine NEGATIVE (NEGATIVE)
[2021-12-12 16:55] LABS: Basophils # (auto) 0 10 ^3/uL (0-0.2); Basophils % (auto) 0.2 % (0.0-2.0); Eosinophils # (auto) 0 10 ^3/uL (0-0.8); Eosinophils % (auto) 0.1 % (0.0-7.0); Hematocrit 32.9 % (36.0-46.0); Lymphocytes # (auto) 0.7 10 ^3/uL (0.4-5.4); Lymphocytes % (auto) 5.1 % (10.0-50.0); Mean Corpuscular Hemoglobin 29.1 pg (28.0-32.0); Mean Corpuscular Hgb Conc. 33.5 g/dL (32.0-36.0); Mean Corpuscular Volume 86.9 fL (80.0-100.0); Monocytes % (auto) 7.5 % (0.0-12.0); Neutrophils # (auto) 11.9 10 ^3/uL (1.6-8.6); Neutrophils % (auto) 87.1 % (37.0-80.0); Red Blood Cells 3.78 10^6/uL (4.0-5.20); White Blood Cell 13.6 10^3/uL (4.4-10.8)
[2021-12-12 17:12] LABS: INR 1.02 (0.9-1.15); Partial Thromboplastin Time 21.6 sec (23.6-33.0)
[2021-12-12 17:16] LABS: Albumin 3.7 g/dL (3.4-5.0); Calcium 9.6 mg/dL (8.5-10.1); Potassium 3.2 mmol/L (3.5-5.1)
[2021-12-12 17:19] LABS: BUN/Creatinine Ratio 24.5; Bilirubin, Total 0.9 mg/dL (0.2-1.0); Total Protein 7.2 g/dL (6.4-8.2)
[2021-12-12] MEDS ORDERED: SODIUM BICARBONATE 8.4 % INJ 50ML VIAL IV ONE (17:30)
[2021-12-12] MEDS ORDERED: ONDANSETRON HCL 4 MG/2 ML VIAL IV PRN (18:15)
[2021-12-12] MEDS ORDERED: SODIUM CHLORIDE 0.9% 2,000 ML IV ONE (18:30)
[2021-12-12] MEDS ORDERED: cefTRIAXone 1GM/50ML D5W 50 ML IV ONE (19:00)
[2021-12-12 20:13] LABS: Magnesium 2.6 mg/dL (1.6-2.6)
[2021-12-12 20:24] LABS: INR 0.98 (0.9-1.15)
[2021-12-12] MEDS ORDERED: HEPARIN SODIUM (PORCINE) 5000 UNITS/ML 1ML VIAL SC SCH (22:00)
[2021-12-13] MEDS: MORPHINE SULFATE 4 MG/ML SYR/VIAL IV PRN ×2 (00:47→11:07)
[2021-12-13 05:40] LABS: Basophils # (auto) 0 10 ^3/uL (0-0.2); Basophils % (auto) 0.2 % (0.0-2.0); Eosinophils # (auto) 0 10 ^3/uL (0-0.8); Eosinophils % (auto) 0.3 % (0.0-7.0); Hematocrit 28.5 % (36.0-46.0); Lymphocytes # (auto) 1.2 10 ^3/uL (0.4-5.4); Lymphocytes % (auto) 15.9 % (10.0-50.0); Mean Corpuscular Hemoglobin 30.1 pg (28.0-32.0); Mean Corpuscular Volume 86.1 fL (80.0-100.0); Monocytes # (auto) 0.8 10 ^3/uL (0-1.3); Monocytes % (auto) 9.9 % (0.0-12.0); Neutrophils # (auto) 5.8 10 ^3/uL (1.6-8.6); Neutrophils % (auto) 73.7 % (37.0-80.0); Red Blood Cells 3.31 10^6/uL (4.0-5.20); Red Cell Distribution Width 14.4 % (11.8-14.3); White Blood Cell 7.9 10^3/uL (4.4-10.8)
[2021-12-13 06:04] LABS: BUN/Creatinine Ratio 37.4; Calcium 9.1 mg/dL (8.5-10.1); Potassium 3.6 mmol/L (3.5-5.1)
[2021-12-13 06:06] LABS: Bilirubin, Total 0.7 mg/dL (0.2-1.0); Total Protein 6.3 g/dL (6.4-8.2)
[2021-12-13] MEDS ORDERED: cefTRIAXone 1GM/50ML D5W 50 ML IV SCH (09:00)
[2021-12-13] MEDS ORDERED: SODIUM CHLORIDE 0.9% 1,000 ML IV SCH (09:30)
[2021-12-13 09:37] VITALS: BP 138/70
[2021-12-13] MEDS ORDERED: ENOXAPARIN SOD 30 MG/0.3 ML SYRINGE SC SCH (10:00)
[2021-12-13] MEDS ORDERED: ALBUTEROL SULF HFA 90MCG INH 200DOSE IN PRN (10:30)
[2021-12-13] MEDS: LACTATED RINGER'S 1,000 ML IV SCH ×2 (10:59→21:23)
[2021-12-13] MEDS ORDERED: ALBUTEROL SULF 2.5 MG/0.5ML(0.5%) NEB SOLN NEB PRN (11:15)
[2021-12-13 11:22] LABS: Sodium Urine 9 mmol/L (40-220)
[2021-12-13 12:25] LABS: Creatinine, Urine < 30.0 mg/dL (30.0-125.0)
[2021-12-13 13:43] VITALS: BP 116/55
[2021-12-13 17:30] VITALS: BP 110/74
[2021-12-13] MEDS ORDERED: CARB200T4 PO (18:01)
[2021-12-13 20:00] VITALS: BP 117/63
[2021-12-13] MEDS: GABAPENTIN 100 MG CAP PO SCH (21:23)
[2021-12-13] MEDS: carBAMazepine 200 MG TAB PO SCH (21:24)
[2021-12-13 22:00] VITALS: BP 117/63
[2021-12-13] MEDS ORDERED: PATIENTS OWN MEDICATION (Baclofen 1 TAB) PO SCH (22:00)
[2021-12-14 04:38] VITALS: BP 119/58
[2021-12-14 05:40] LABS: Basophils # (auto) 0 10 ^3/uL (0-0.2); Basophils % (auto) 0.4 % (0.0-2.0); Eosinophils # (auto) 0.1 10 ^3/uL (0-0.8); Eosinophils % (auto) 1.6 % (0.0-7.0); Hematocrit 26.7 % (36.0-46.0); Hemoglobin 9.6 g/dL (12.2-16.2); Lymphocytes % (auto) 30.1 % (10.0-50.0); Mean Corpuscular Hemoglobin 31.2 pg (28.0-32.0); Mean Corpuscular Hgb Conc. 36.1 g/dL (32.0-36.0); Mean Corpuscular Volume 86.4 fL (80.0-100.0); Monocytes # (auto) 0.6 10 ^3/uL (0-1.3); Monocytes % (auto) 8.7 % (0.0-12.0); Neutrophils % (auto) 59.2 % (37.0-80.0); Red Blood Cells 3.09 10^6/uL (4.0-5.20); Red Cell Distribution Width 14.6 % (11.8-14.3); White Blood Cell 6.7 10^3/uL (4.4-10.8)
[2021-12-14 05:54] LABS: Calcium 9.3 mg/dL (8.5-10.1); Potassium 3.6 mmol/L (3.5-5.1)
[2021-12-14 05:59] LABS: Magnesium 1.9 mg/dL (1.6-2.6)
[2021-12-14] MEDS: GABAPENTIN 100 MG CAP PO SCH ×3 (06:26→21:12)
[2021-12-14] MEDS: LACTATED RINGER'S 1,000 ML IV SCH (06:26)
[2021-12-14 08:00] VITALS: BP 117/63
[2021-12-14 09:00] VITALS: BP 123/70
[2021-12-14] MEDS: FLUoxetine HCL 20 MG CAP PO SCH (09:28)
[2021-12-14] MEDS: MAGNESIUM OXIDE 400 MG TAB PO SCH (09:28)
[2021-12-14 13:00] VITALS: BP 116/64
[2021-12-14] MEDS ORDERED: ACETAMINOPHEN 325 MG TAB PO PRN (16:30)
[2021-12-14] MEDS ORDERED: HYDROcodone-ACET 7.5/325MG TAB PO PRN (16:30)
[2021-12-14 17:00] VITALS: BP 123/69
[2021-12-14] MEDS: carBAMazepine 200 MG TAB PO SCH (21:13)
[2021-12-14 21:32] VITALS: BP 107/59
[2021-12-15 05:00] VITALS: BP 120/64
[2021-12-15] MEDS: GABAPENTIN 100 MG CAP PO SCH ×3 (06:08→21:34)
[2021-12-15 06:15] LABS: Basophils # (auto) 0 10 ^3/uL (0-0.2); Basophils % (auto) 0.6 % (0.0-2.0); Eosinophils # (auto) 0.1 10 ^3/uL (0-0.8); Eosinophils % (auto) 2.2 % (0.0-7.0); Hemoglobin 9.3 g/dL (12.2-16.2); Lymphocytes # (auto) 2.1 10 ^3/uL (0.4-5.4); Lymphocytes % (auto) 30.7 % (10.0-50.0); Mean Corpuscular Hemoglobin 30.4 pg (28.0-32.0); Mean Corpuscular Hgb Conc. 34.6 g/dL (32.0-36.0); Monocytes # (auto) 0.6 10 ^3/uL (0-1.3); Monocytes % (auto) 8.7 % (0.0-12.0); Neutrophils # (auto) 3.9 10 ^3/uL (1.6-8.6); Neutrophils % (auto) 57.8 % (37.0-80.0); Red Blood Cells 3.06 10^6/uL (4.0-5.20); Red Cell Distribution Width 14.2 % (11.8-14.3); White Blood Cell 6.8 10^3/uL (4.4-10.8)
[2021-12-15 08:00] VITALS: BP 119/59
[2021-12-15] MEDS: MAGNESIUM OXIDE 400 MG TAB PO SCH (10:19)
[2021-12-15] MEDS: FLUoxetine HCL 20 MG CAP PO SCH (10:19)
[2021-12-15 12:00] VITALS: BP 135/80
[2021-12-15] MEDS ORDERED: hydrOXYzine 25 MG TAB or CAP PO PRN (12:15)
[2021-12-15] MEDS ORDERED: GADOTERATE MEG 10 MMOL/20ml INJ (0.5MMOL/ml) IV ONE (12:42)
[2021-12-15 17:00] VITALS: BP 147/89
[2021-12-15] MEDS ORDERED: LORazepam 2MG/ML-1ML VIAL IV PRN (20:00)
[2021-12-15 21:33] VITALS: BP 128/58
[2021-12-15] MEDS: carBAMazepine 200 MG TAB PO SCH (21:35)
[2021-12-16 04:59] VITALS: BP 122/50
[2021-12-16] MEDS: GABAPENTIN 100 MG CAP PO SCH ×2 (06:13→14:21)
[2021-12-16] MEDS: carBAMazepine 200 MG TAB PO SCH ×2 (06:13→14:21)
[2021-12-16] MEDS: MAGNESIUM OXIDE 400 MG TAB PO SCH (08:55)
[2021-12-16 09:00] VITALS: BP 124/60
[2021-12-16] MEDS ORDERED: FLUoxetine HCL 20 MG CAP PO SCH (10:00)
[2021-12-16] MEDS ORDERED: MULTTAB75 PO (10:34)
[2021-12-16] MEDS ORDERED: THIA100T10 GT (10:34)
[2021-12-16] MEDS ORDERED: FOLITAB22 PO (10:34)
[2021-12-16 13:00] VITALS: BP 133/84
== END 2021-12-16 15:49 | DRG 640 ==
LOC: ER 14:59 → EDBD 14:59 → OVERFLOW 18:01 → WEST WING 12-13 09:16
PROVIDERS: ADMIT Registered Nurse; ATTEND Hospitalist
DX: E86.0 Dehydration (principal); N17.0 Acute kidney failure with tubular necrosis; G93.41 Metabolic encephalopathy; M62.82 Rhabdomyolysis; F07.81 Postconcussional syndrome; W18.30XA Fall on same level, unspecified, initial encounter; D64.9 Anemia, unspecified; D72.829 Elevated white blood cell count, unspecified; E66.9 Obesity, unspecified; E78.5 Hyperlipidemia, unspecified; M65.9 Synovitis and tenosynovitis, unspecified; I10 Essential (primary) hypertension; F32.A Depression, unspecified; K57.30 Diverticulosis of large intestine without perforation or abscess without bleeding; Z60.2 Problems related to living alone; N28.89 Other specified disorders of kidney and ureter; F12.10 Cannabis abuse, uncomplicated; F41.9 Anxiety disorder, unspecified; G62.9 Polyneuropathy, unspecified; Z20.822 Contact with and (suspected) exposure to COVID-19; S82.891A Other fracture of right lower leg, initial encounter for closed fracture; W18.39XA Other fall on same level, initial encounter; S00.531A Contusion of lip, initial encounter; G40.409 Other generalized epilepsy and epileptic syndromes, not intractable, without status epilepticus; Z79.899 Other long term (current) drug therapy; Z83.3 Family history of diabetes mellitus; Z86.73 Personal history of transient ischemic attack (TIA), and cerebral infarction without residual deficits; Z82.49 Family history of ischemic heart disease and other diseases of the circulatory system; Z68.39 Body mass index [BMI] 39.0-39.9, adult; Y93.89 Activity, other specified; Y92.098 Other place in other non-institutional residence as the place of occurrence of the external cause; Y99.8 Other external cause status
CPT/HCPCS: 36415; 70450; 70486; 71045; 72192; 73502; 73560; 73600; 73723; 76775; 80048; 80053; 80061; 80156; 80307; 80320; 81001; 82140; 82247; 82550; 82570; 83036; 83735; 84075; 84133; 84300; 84484; 85025; 85610; 85730; 87040; 93306; 93886; 96361; 96365; 96372; 96375; 97110; 97116; 97163; 97530; 99291; G0378; J0696

== ENCOUNTER 2022-02-16 09:40 | Emergency (ER) | payer OTHER, MEDICAID ==
[~2022-02-16] VITALS: Ht 165.1 cm; Wt 110.2 kg
[~2022-02-16 09:40] MED LIST changes: +FOLITAB22 PO; +MULTTAB75 PO; +THIA100T10 GT
[2022-02-16 09:51] VITALS: BP 104/41
[2022-02-16 12:02] LABS: Basophils # (auto) 0 10 ^3/uL (0-0.2); Basophils % (auto) 0.6 % (0.0-2.0); Eosinophils # (auto) 0.1 10 ^3/uL (0-0.8); Eosinophils % (auto) 2.8 % (0.0-7.0); Hematocrit 33.3 % (36.0-46.0); Hemoglobin 11.3 g/dL (12.2-16.2); Lymphocytes # (auto) 1.3 10 ^3/uL (0.4-5.4); Lymphocytes % (auto) 25.8 % (10.0-50.0); Mean Corpuscular Hemoglobin 30.6 pg (28.0-32.0); Mean Corpuscular Hgb Conc. 34.1 g/dL (32.0-36.0); Mean Corpuscular Volume 89.7 fL (80.0-100.0); Monocytes # (auto) 0.5 10 ^3/uL (0-1.3); Monocytes % (auto) 9.3 % (0.0-12.0); Neutrophils # (auto) 3.2 10 ^3/uL (1.6-8.6); Neutrophils % (auto) 61.5 % (37.0-80.0); Red Blood Cells 3.71 10^6/uL (4.0-5.20); Red Cell Distribution Width 13.3 % (11.8-14.3); White Blood Cell 5.1 10^3/uL (4.4-10.8)
[2022-02-16 12:18] LABS: INR 0.98 (0.9-1.15); Partial Thromboplastin Time 22.9 sec (23.6-33.0)
[2022-02-16 12:36] LABS: Albumin 3.5 g/dL (3.4-5.0); Calcium 9.3 mg/dL (8.5-10.1); Magnesium 2.5 mg/dL (1.6-2.6)
[2022-02-16 12:40] LABS: BUN/Creatinine Ratio 23.2; Bilirubin, Total 0.3 mg/dL (0.2-1.0); Total Protein 7.6 g/dL (6.4-8.2)
[2022-02-16 15:20] LABS: Urine Bacteria FEW /hpf (None Seen); Urine Blood Negative /uL (Negative); Urine Hyaline Cast FEW /lpf (0 - 2); Urine Specific Gravity 1.013 (1.001-1.035); Urine WBC 2 /hpf (0 - 5)
== END 2022-02-16 15:42 | disposition left against medical advice (07) ==
LOC: ER 09:40
DX: R22.43 Localized swelling, mass and lump, lower limb, bilateral (principal); Z79.82 Long term (current) use of aspirin; Z79.899 Other long term (current) drug therapy
CPT/HCPCS: 36415; 71045; 80053; 81001; 83735; 83880; 84484; 85025; 85610; 85730; 93005; 93970

== ENCOUNTER 2022-10-23 19:51 | Inpatient (IN) | payer OTHER, MEDICAID ==
[~2022-10-23] VITALS: Ht 172.7 cm; Wt 124.9 kg
[2022-10-23 22:39] LABS: Basophils # (auto) 0 10 ^3/uL (0-0.2); Eosinophils # (auto) 0.2 10 ^3/uL (0-0.8); Lymphocytes # (auto) 1.6 10 ^3/uL (0.4-5.4); Monocytes # (auto) 0.9 10 ^3/uL (0-1.3); Nucleated Red Blood Cells % 0.1 %
[2022-10-23 22:42] LABS: Basophils % (auto) 0.1 % (0.0-2.0); Hematocrit 20.4 % (36.0-46.0); Lymphocytes % (auto) 14.9 % (10.0-50.0); Mean Corpuscular Hemoglobin 32.4 pg (28.0-32.0); Mean Corpuscular Hgb Conc. 33.6 g/dL (32.0-36.0); Mean Corpuscular Volume 96.4 fL (80.0-100.0); Monocytes % (auto) 8.4 % (0.0-12.0); Neutrophils # (auto) 7.9 10 ^3/uL (1.6-8.6); Neutrophils % (auto) 74.6 % (37.0-80.0); Red Blood Cells 2.12 10^6/uL (4.0-5.20); Red Cell Distribution Width 14.8 % (11.8-14.3); White Blood Cell 10.6 10^3/uL (4.4-10.8)
[2022-10-23 22:47] LABS: Hemoglobin 6.9 g/dL (12.2-16.2)
[2022-10-23 22:57] LABS: Albumin 2.9 g/dL (3.4-5.0); Calcium 9.7 mg/dL (8.5-10.1); Potassium 3.6 mmol/L (3.5-5.1)
[2022-10-23 22:59] LABS: BUN/Creatinine Ratio 33.9
[2022-10-23 23:02] LABS: Bilirubin, Total 0.6 mg/dL (0.2-1.0); Total Protein 6.8 g/dL (6.4-8.2)
[2022-10-23] MEDS ORDERED: PANTOPRAZOLE 40 MG/10 ML VIAL INJ IV ONE (23:15)
[2022-10-24] MEDS ORDERED: DEXTROSE (50%) 50ML SYRG IV PRN (03:15)
[2022-10-24] MEDS ORDERED: NITROGLYCERIN 0.4 MG SL TAB SL PRN (03:15)
[2022-10-24] MEDS ORDERED: MORPHINE SULFATE INJ 2 MG/ml SYRG IV PRN (03:15)
[2022-10-24] MEDS ORDERED: chlordiazePOXIDE HCL 25 MG CAP PO PRN (03:15)
[2022-10-24] MEDS ORDERED: ONDANSETRON HCL 4 MG/2 ML VIAL IV PRN (03:15)
[2022-10-24 03:46] LABS: % Iron Saturation 9.2 % (15-50)
[2022-10-24 05:40] VITALS: BP 128/57
[2022-10-24 05:55] VITALS: BP 135/53
[2022-10-24] MEDS: InsuLIN REG 1unit/0.01ml Soln (100units/ml) SC SCH ×4 (07:00→22:17)
[2022-10-24] MEDS: ACCU-CHEK COMFORT CURVE STRIP VI SCH ×4 (07:02→22:14)
[2022-10-24 08:03] VITALS: BP 137/52
[2022-10-24 08:30] VITALS: BP 146/62
[2022-10-24 08:45] VITALS: BP 146/67
[2022-10-24] MEDS ORDERED: LOSARTAN POTASSIUM 50 MG TAB PO SCH (10:00)
[2022-10-24 12:00] VITALS: BP 120/67
[2022-10-24] MEDS ORDERED: FOLIC ACID 1 MG, MULTIPLE VITAMIN 10 ML, MAGNESIUM SULF SDV 50% 8 MEQ, THIAMINE INJ 100... INJ SCH ×5 (12:00)
[2022-10-24 13:10] LABS: Alcohol, Urine < 3.0 mg/dL (0-10); Barbiturate Scree,Urine NEGATIVE (NEGATIVE); Benzodiazephine Screen, Urine NEGATIVE (NEGATIVE); Cannabinoid Screen, Urine NEGATIVE (NEGATIVE); Cocaine Screen, Urine NEGATIVE (NEGATIVE)
[2022-10-24 13:13] LABS: Amphetamine Screen, Urine NEGATIVE (NEGATIVE); Opiate Scree,Urine NEGATIVE (NEGATIVE); Phencyclidine Screen, Urine NEGATIVE (NEGATIVE)
[2022-10-24] MEDS: FUROSEMIDE 40 MG TAB PO SCH (13:38)
[2022-10-24] MEDS: PANTOPRAZOLE 40 MG TAB PO SCH (13:38)
[2022-10-24] MEDS: SODIUM CHLORIDE 0.9% 1,000 ML IV SCH (13:39)
[2022-10-24 14:09] LABS: INR 0.97 (0.9-1.15); Partial Thromboplastin Time 22.3 sec (24.6-33.4)
[2022-10-24 19:08] LABS: Albumin 2.9 g/dL (3.4-5.0); BUN/Creatinine Ratio 36.5; Calcium 9.7 mg/dL (8.5-10.1); Potassium 3.4 mmol/L (3.5-5.1)
[2022-10-24 19:10] LABS: Bilirubin, Total 0.6 mg/dL (0.2-1.0); Total Protein 7.1 g/dL (6.4-8.2)
[2022-10-24 19:38] LABS: Basophils # (auto) 0 10 ^3/uL (0-0.2); Basophils % (auto) 0.3 % (0.0-2.0); Eosinophils # (auto) 0.2 10 ^3/uL (0-0.8); Hematocrit 27.8 % (36.0-46.0); Hemoglobin 9.5 g/dL (12.2-16.2); Lymphocytes % (auto) 13.3 % (10.0-50.0); Mean Corpuscular Hemoglobin 31.5 pg (28.0-32.0); Mean Corpuscular Volume 92.5 fL (80.0-100.0); Monocytes # (auto) 0.9 10 ^3/uL (0-1.3); Monocytes % (auto) 11.1 % (0.0-12.0); Neutrophils # (auto) 5.8 10 ^3/uL (1.6-8.6); Neutrophils % (auto) 73.3 % (37.0-80.0); Nucleated Red Blood Cells % 0.2 %; Red Blood Cells 3.01 10^6/uL (4.0-5.20); Red Cell Distribution Width 16.3 % (11.8-14.3); White Blood Cell 7.9 10^3/uL (4.4-10.8)
[2022-10-24] MEDS: ATORVASTATIN 20 MG TAB PO SCH (22:14)
[2022-10-25] MEDS: SODIUM CHLORIDE 0.9% 1,000 ML IV SCH ×2 (00:35→17:02)
[2022-10-25] MEDS: TEMAZEPAM 15 MG CAP PO PRN ×2 (01:16→22:26)
[2022-10-25] MEDS: ACETAMINOPHEN 325 MG TAB PO PRN ×2 (01:17→22:26)
[2022-10-25 06:48] LABS: Basophils # (auto) 0 10 ^3/uL (0-0.2); Eosinophils # (auto) 0.1 10 ^3/uL (0-0.8); Red Cell Distribution Width 16.3 % (11.8-14.3)
[2022-10-25 06:51] LABS: Basophils % (auto) 0.2 % (0.0-2.0); Eosinophils % (auto) 1.5 % (0.0-7.0); Hematocrit 26.7 % (36.0-46.0); Hemoglobin 8.9 g/dL (12.2-16.2); Lymphocytes # (auto) 1.3 10 ^3/uL (0.4-5.4); Lymphocytes % (auto) 18.4 % (10.0-50.0); Mean Corpuscular Hemoglobin 30.9 pg (28.0-32.0); Mean Corpuscular Hgb Conc. 33.5 g/dL (32.0-36.0); Mean Corpuscular Volume 92.4 fL (80.0-100.0); Monocytes # (auto) 0.9 10 ^3/uL (0-1.3); Monocytes % (auto) 12.4 % (0.0-12.0); Neutrophils # (auto) 4.6 10 ^3/uL (1.6-8.6); Neutrophils % (auto) 67.5 % (37.0-80.0); Nucleated Red Blood Cells % 0.1 %; Red Blood Cells 2.89 10^6/uL (4.0-5.20); White Blood Cell 6.9 10^3/uL (4.4-10.8)
[2022-10-25 06:57] LABS: Potassium 3.3 mmol/L (3.5-5.1)
[2022-10-25 07:04] LABS: Folate (Folic Acid) 23.19 ng/mL (5.38-24)
[2022-10-25] MEDS: ACCU-CHEK COMFORT CURVE STRIP VI SCH ×4 (07:06→21:38)
[2022-10-25 07:12] LABS: Albumin 2.7 g/dL (3.4-5.0); BUN/Creatinine Ratio 40.5; Bilirubin, Total 0.5 mg/dL (0.2-1.0); Calcium 8.9 mg/dL (8.5-10.1); Total Protein 6.5 g/dL (6.4-8.2)
[2022-10-25] MEDS: InsuLIN REG 1unit/0.01ml Soln (100units/ml) SC SCH ×4 (07:12→21:38)
[2022-10-25] MEDS ORDERED: POTASSIUM CHL 20MEQ/100ML 100 ML IV ONE (08:30)
[2022-10-25] MEDS: PANTOPRAZOLE 40 MG TAB PO SCH (11:19)
[2022-10-25] MEDS: B-COMPLEX W/ C & FOLIC ACID(NEPHROVITE TAB) PO SCH (11:20)
[2022-10-25] MEDS: FUROSEMIDE 40 MG TAB PO SCH (11:20)
[2022-10-25] MEDS: THIAMINE HCL 100 MG TAB PO SCH (11:20)
[2022-10-25] MEDS ORDERED: LIDOCAINE VISCOUS 2% 15ML UD ONE (12:34)
[2022-10-25] MEDS ORDERED: diphenhdrAMINE HCL 50 MG/1 ML VL ONE (12:34)
[2022-10-25] MEDS ORDERED: fentaNYL CITRATE 100 MCG/2 ML VL ONE (12:35)
[2022-10-25] MEDS ORDERED: MIDAZOLAM HCL 2MG/2ML 2ml VIAL (1mg/ml) ONE (12:35)
[2022-10-25 12:48] VITALS: BP 117/48
[2022-10-25 13:11] VITALS: BP 117/48
[2022-10-25] MEDS ORDERED: LORazepam 2MG/ML-1ML VIAL IV PRN (16:00)
[2022-10-25] MEDS ORDERED: LORazepam 2MG/ML-1ML VIAL ONE (16:02)
[2022-10-25 17:00] VITALS: BP 116/54
[2022-10-25 20:00] VITALS: BP 132/63
[2022-10-25] MEDS: ATORVASTATIN 20 MG TAB PO SCH (21:43)
[2022-10-25 22:00] VITALS: BP 132/63
[2022-10-26] MEDS: SODIUM CHLORIDE 0.9% 1,000 ML IV SCH ×2 (03:32→14:45)
[2022-10-26 05:00] VITALS: BP 161/59
[2022-10-26] MEDS: ACETAMINOPHEN 325 MG TAB PO PRN (05:38)
[2022-10-26] MEDS: InsuLIN REG 1unit/0.01ml Soln (100units/ml) SC SCH ×4 (06:07→21:40)
[2022-10-26] MEDS: ACCU-CHEK COMFORT CURVE STRIP VI SCH ×4 (06:07→21:39)
[2022-10-26 06:34] LABS: Calcium 8.9 mg/dL (8.5-10.1)
[2022-10-26 06:36] LABS: BUN/Creatinine Ratio 30.6
[2022-10-26 08:00] VITALS: BP 126/65
[2022-10-26 09:00] VITALS: BP 126/65
[2022-10-26] MEDS: FUROSEMIDE 40 MG TAB PO SCH (11:42)
[2022-10-26] MEDS: amLODIPine BESYLATE 5 MG TAB PO SCH (11:42)
[2022-10-26] MEDS: ENALAPRIL MALEATE 10 MG TAB PO SCH (11:43)
[2022-10-26] MEDS: PANTOPRAZOLE 40 MG TAB PO SCH (11:43)
[2022-10-26] MEDS: FLUoxetine HCL 20 MG CAP PO SCH (11:43)
[2022-10-26] MEDS: THIAMINE HCL 100 MG TAB PO SCH (11:43)
[2022-10-26] MEDS: B-COMPLEX W/ C & FOLIC ACID(NEPHROVITE TAB) PO SCH (11:44)
[2022-10-26] MEDS: LACTULOSE 20Gm/30ML SOLN PO SCH ×2 (11:44→18:00)
[2022-10-26 13:00] VITALS: BP 143/71
[2022-10-26] MEDS ORDERED: POTASSIUM CHL 20 Meq TABLET PO ONE (13:15)
[2022-10-26] MEDS: GABAPENTIN 100 MG CAP PO SCH ×2 (14:45→21:38)
[2022-10-26] MEDS: LORazepam 0.5 MG TAB PO PRN (14:46)
[2022-10-26] MEDS: carBAMazepine 200 MG TAB PO SCH ×2 (14:46→21:38)
[2022-10-26 16:49] VITALS: BP 129/60
[2022-10-26] MEDS: FERROUS SULFATE 325mg EC TAB PO SCH (18:16)
[2022-10-26 20:00] VITALS: BP 121/56
[2022-10-26] MEDS: ATORVASTATIN 20 MG TAB PO SCH (21:38)
[2022-10-27] VITALS (7 sets, daily range): BP systolic 113–129; BP diastolic 47–81
[2022-10-27] MEDS ORDERED: LORazepam 2MG/ML-1ML VIAL IV PRN
[2022-10-27] MEDS: carBAMazepine 200 MG TAB PO SCH ×3 (05:34→21:06)
[2022-10-27] MEDS: LACTULOSE 20Gm/30ML SOLN PO SCH ×4 (05:34→18:07)
[2022-10-27] MEDS: GABAPENTIN 100 MG CAP PO SCH ×3 (05:34→21:06)
[2022-10-27] MEDS: ACCU-CHEK COMFORT CURVE STRIP VI SCH ×4 (06:36→21:32)
[2022-10-27] MEDS: InsuLIN REG 1unit/0.01ml Soln (100units/ml) SC SCH ×4 (06:36→21:32)
[2022-10-27 06:43] LABS: Calcium 9.4 mg/dL (8.5-10.1); Potassium 3.9 mmol/L (3.5-5.1)
[2022-10-27 06:46] LABS: BUN/Creatinine Ratio 22.4
[2022-10-27] MEDS ORDERED: LIDOCAINE 1%HCL (LOCAL ANESTH) 10 ML MDV ONE (07:03)
[2022-10-27] MEDS ORDERED: PROPOFOL 10 MG/ML 20 ML IV ONE (08:26)
[2022-10-27] MEDS ORDERED: LIDOCAINE VISCOUS 2% 15ML UD ONE (08:31)
[2022-10-27] MEDS: FERROUS SULFATE 325mg EC TAB PO SCH ×2 (10:08→18:08)
[2022-10-27] MEDS: THIAMINE HCL 100 MG TAB PO SCH (10:08)
[2022-10-27] MEDS: FLUoxetine HCL 20 MG CAP PO SCH (10:09)
[2022-10-27] MEDS: ENALAPRIL MALEATE 10 MG TAB PO SCH (10:09)
[2022-10-27] MEDS: B-COMPLEX W/ C & FOLIC ACID(NEPHROVITE TAB) PO SCH (10:09)
[2022-10-27] MEDS: PANTOPRAZOLE 40 MG TAB PO SCH (10:09)
[2022-10-27] MEDS: amLODIPine BESYLATE 5 MG TAB PO SCH (10:10)
[2022-10-27] MEDS: FUROSEMIDE 40 MG TAB PO SCH (10:10)
[2022-10-27] MEDS: SODIUM CHLORIDE 0.9% 1,000 ML IV SCH (10:11)
[2022-10-27] MEDS: ACETAMINOPHEN 325 MG TAB PO PRN (16:47)
[2022-10-27] MEDS: ATORVASTATIN 20 MG TAB PO SCH (21:06)
[2022-10-28] MEDS: LACTULOSE 20Gm/30ML SOLN PO SCH ×5 (00:40→23:29)
[2022-10-28] MEDS: ACETAMINOPHEN 325 MG TAB PO PRN ×2 (00:41→21:23)
[2022-10-28 04:29] VITALS: BP 132/60
[2022-10-28] MEDS: SODIUM CHLORIDE 0.9% 1,000 ML IV SCH (05:20)
[2022-10-28] MEDS: GABAPENTIN 100 MG CAP PO SCH ×3 (05:24→21:23)
[2022-10-28] MEDS: carBAMazepine 200 MG TAB PO SCH ×3 (05:24→21:23)
[2022-10-28] MEDS: ACCU-CHEK COMFORT CURVE STRIP VI SCH ×4 (06:35→21:29)
[2022-10-28] MEDS: InsuLIN REG 1unit/0.01ml Soln (100units/ml) SC SCH ×4 (06:36→21:29)
[2022-10-28 09:30] VITALS: BP 154/70
[2022-10-28] MEDS: FUROSEMIDE 40 MG TAB PO SCH (10:55)
[2022-10-28] MEDS: FERROUS SULFATE 325mg EC TAB PO SCH ×2 (10:55→17:47)
[2022-10-28] MEDS: B-COMPLEX W/ C & FOLIC ACID(NEPHROVITE TAB) PO SCH (10:55)
[2022-10-28] MEDS: THIAMINE HCL 100 MG TAB PO SCH (10:56)
[2022-10-28] MEDS: PANTOPRAZOLE 40 MG TAB PO SCH (10:56)
[2022-10-28] MEDS: FLUoxetine HCL 20 MG CAP PO SCH (10:56)
[2022-10-28] MEDS: amLODIPine BESYLATE 5 MG TAB PO SCH (10:56)
[2022-10-28] MEDS: ENALAPRIL MALEATE 10 MG TAB PO SCH (10:57)
[2022-10-28 13:30] VITALS: BP 115/54
[2022-10-28] MEDS: LORazepam 0.5 MG TAB PO PRN (16:39)
[2022-10-28 16:40] VITALS: BP 131/68
[2022-10-28] MEDS: ATORVASTATIN 20 MG TAB PO SCH (21:23)
[2022-10-28] MEDS: TEMAZEPAM 15 MG CAP PO PRN (21:24)
[2022-10-28 21:47] VITALS: BP 111/53
[2022-10-29] MEDS: SODIUM CHLORIDE 0.9% 1,000 ML IV SCH ×2 (01:15→21:15)
[2022-10-29] MEDS: LORazepam 0.5 MG TAB PO PRN ×2 (02:30→22:33)
[2022-10-29 02:47] VITALS: BP 147/49
[2022-10-29] MEDS: GABAPENTIN 100 MG CAP PO SCH ×3 (05:42→22:33)
[2022-10-29] MEDS: carBAMazepine 200 MG TAB PO SCH ×3 (05:42→22:33)
[2022-10-29] MEDS: ACCU-CHEK COMFORT CURVE STRIP VI SCH ×4 (05:43→22:44)
[2022-10-29] MEDS: LACTULOSE 20Gm/30ML SOLN PO SCH ×4 (05:43→23:09)
[2022-10-29] MEDS: InsuLIN REG 1unit/0.01ml Soln (100units/ml) SC SCH ×4 (05:44→22:00)
[2022-10-29 06:07] LABS: Basophils # (auto) 0 10 ^3/uL (0-0.2); Basophils % (auto) 0.5 % (0.0-2.0); Eosinophils # (auto) 0.2 10 ^3/uL (0-0.8); Eosinophils % (auto) 2.3 % (0.0-7.0); Hemoglobin 9.6 g/dL (12.2-16.2); Lymphocytes # (auto) 1.6 10 ^3/uL (0.4-5.4); Monocytes # (auto) 0.6 10 ^3/uL (0-1.3)
[2022-10-29 06:09] LABS: Hematocrit 29.1 % (36.0-46.0); Lymphocytes % (auto) 20.9 % (10.0-50.0); Mean Corpuscular Hemoglobin 31.6 pg (28.0-32.0); Mean Corpuscular Hgb Conc. 33.1 g/dL (32.0-36.0); Mean Corpuscular Volume 95.7 fL (80.0-100.0); Monocytes % (auto) 7.6 % (0.0-12.0); Neutrophils # (auto) 5.1 10 ^3/uL (1.6-8.6); Neutrophils % (auto) 68.7 % (37.0-80.0); Nucleated Red Blood Cells % 0.2 %; Red Blood Cells 3.04 10^6/uL (4.0-5.20); Red Cell Distribution Width 15.8 % (11.8-14.3); White Blood Cell 7.4 10^3/uL (4.4-10.8)
[2022-10-29 06:24] LABS: Albumin 2.8 g/dL (3.4-5.0); Calcium 8.9 mg/dL (8.5-10.1); Potassium 3.4 mmol/L (3.5-5.1)
[2022-10-29 06:28] LABS: BUN/Creatinine Ratio 15.7; Bilirubin, Total 0.6 mg/dL (0.2-1.0); Total Protein 6.6 g/dL (6.4-8.2)
[2022-10-29] MEDS: FERROUS SULFATE 325mg EC TAB PO SCH ×2 (08:07→17:47)
[2022-10-29 08:24] VITALS: BP 145/58
[2022-10-29] MEDS: amLODIPine BESYLATE 5 MG TAB PO SCH (10:07)
[2022-10-29] MEDS: B-COMPLEX W/ C & FOLIC ACID(NEPHROVITE TAB) PO SCH (10:07)
[2022-10-29] MEDS: THIAMINE HCL 100 MG TAB PO SCH (10:07)
[2022-10-29] MEDS: FUROSEMIDE 40 MG TAB PO SCH (10:07)
[2022-10-29] MEDS: PANTOPRAZOLE 40 MG TAB PO SCH (10:08)
[2022-10-29] MEDS: FLUoxetine HCL 10 MG CAP PO SCH (10:08)
[2022-10-29] MEDS: ENALAPRIL MALEATE 10 MG TAB PO SCH (10:08)
[2022-10-29 12:24] VITALS: BP 155/68
[2022-10-29 17:08] VITALS: BP 145/75
[2022-10-29 22:18] VITALS: BP 115/53
[2022-10-29] MEDS: ACETAMINOPHEN 325 MG TAB PO PRN (22:32)
[2022-10-29] MEDS: ATORVASTATIN 20 MG TAB PO SCH (22:33)
[2022-10-30 05:13] VITALS: BP 146/62
[2022-10-30] MEDS: ACETAMINOPHEN 325 MG TAB PO PRN (05:38)
[2022-10-30] MEDS: GABAPENTIN 100 MG CAP PO SCH ×2 (05:38→14:09)
[2022-10-30] MEDS: carBAMazepine 200 MG TAB PO SCH ×2 (05:38→14:09)
[2022-10-30] MEDS: LACTULOSE 20Gm/30ML SOLN PO SCH ×3 (05:38→18:00)
[2022-10-30] MEDS: InsuLIN REG 1unit/0.01ml Soln (100units/ml) SC SCH ×3 (05:45→16:44)
[2022-10-30] MEDS: ACCU-CHEK COMFORT CURVE STRIP VI SCH ×3 (05:45→16:44)
[2022-10-30 08:45] VITALS: BP 118/49
[2022-10-30] MEDS: B-COMPLEX W/ C & FOLIC ACID(NEPHROVITE TAB) PO SCH (09:23)
[2022-10-30] MEDS: PANTOPRAZOLE 40 MG TAB PO SCH (09:23)
[2022-10-30] MEDS: FERROUS SULFATE 325mg EC TAB PO SCH ×2 (09:23→18:25)
[2022-10-30] MEDS: FLUoxetine HCL 10 MG CAP PO SCH (09:24)
[2022-10-30] MEDS: THIAMINE HCL 100 MG TAB PO SCH (09:24)
[2022-10-30] MEDS: amLODIPine BESYLATE 5 MG TAB PO SCH (09:25)
[2022-10-30] MEDS: FUROSEMIDE 40 MG TAB PO SCH (09:25)
[2022-10-30] MEDS: ENALAPRIL MALEATE 10 MG TAB PO SCH (09:25)
[2022-10-30] MEDS: LORazepam 0.5 MG TAB PO PRN (09:34)
[2022-10-30] MEDS ORDERED: HYDROcodone-ACET 7.5/325MG TAB PO PRN (11:00)
[2022-10-30 13:00] VITALS: BP 122/55
[2022-10-30] MEDS: SODIUM CHLORIDE 0.9% 1,000 ML IV SCH (16:48)
[2022-10-30 17:00] VITALS: BP 118/55
[2022-10-30 17:27] VITALS: BP 122/55
== END 2022-10-30 19:21 | DRG 380 ==
LOC: ER 19:51 → EDBD 19:51 → TELE 10-24 03:13 → TELE-E-ADS 10-25 14:10 → TELE-CENTR 10-25 16:15
PROVIDERS: ADMIT Nurse Practitioner; ATTEND Family Medicine
PROC: 30233N1 Transfusion of Nonautologous Red Blood Cells into Peripheral Vein, Percutaneous Approach (ICD-10-PCS; 2022-10-24)
PROC: 05H933Z Insertion of Infusion Device into Right Brachial Vein, Percutaneous Approach (ICD-10-PCS; 2022-10-25)
PROC: B54MZZA Ultrasonography of Right Upper Extremity Veins, Guidance (ICD-10-PCS; 2022-10-25)
PROC: 0DB68ZX Excision of Stomach, Via Natural or Artificial Opening Endoscopic, Diagnostic (ICD-10-PCS; 2022-10-27)
PROC: 0DB98ZX Excision of Duodenum, Via Natural or Artificial Opening Endoscopic, Diagnostic (ICD-10-PCS; principal; 2022-10-27 08:36)
DX: K22.11 Ulcer of esophagus with bleeding (principal); E43 Unspecified severe protein-calorie malnutrition; G93.41 Metabolic encephalopathy; I13.0 Hypertensive heart and chronic kidney disease with heart failure and stage 1 through stage 4 chronic kidney disease, or unspecified chronic kidney disease; N17.9 Acute kidney failure, unspecified; E72.20 Disorder of urea cycle metabolism, unspecified; F33.1 Major depressive disorder, recurrent, moderate; F10.239 Alcohol dependence with withdrawal, unspecified; K29.71 Gastritis, unspecified, with bleeding; K25.4 Chronic or unspecified gastric ulcer with hemorrhage; D50.0 Iron deficiency anemia secondary to blood loss (chronic); Z98.84 Bariatric surgery status; G40.409 Other generalized epilepsy and epileptic syndromes, not intractable, without status epilepticus; E78.5 Hyperlipidemia, unspecified; E87.6 Hypokalemia; K44.9 Diaphragmatic hernia without obstruction or gangrene; E11.22 Type 2 diabetes mellitus with diabetic chronic kidney disease; I50.9 Heart failure, unspecified; N18.30 Chronic kidney disease, stage 3 unspecified; Z60.2 Problems related to living alone; F41.9 Anxiety disorder, unspecified; K21.9 Gastro-esophageal reflux disease without esophagitis; G47.50 Parasomnia, unspecified; S80.12XA Contusion of left lower leg, initial encounter; S80.11XA Contusion of right lower leg, initial encounter; R29.6 Repeated falls; X58.XXXA Exposure to other specified factors, initial encounter; S09.90XA Unspecified injury of head, initial encounter; Z68.30 Body mass index [BMI] 30.0-30.9, adult; Z79.899 Other long term (current) drug therapy; Z82.49 Family history of ischemic heart disease and other diseases of the circulatory system; Z83.3 Family history of diabetes mellitus; Z86.718 Personal history of other venous thrombosis and embolism; Z86.73 Personal history of transient ischemic attack (TIA), and cerebral infarction without residual deficits; Z87.11 Personal history of peptic ulcer disease; Z87.828 Personal history of other (healed) physical injury and trauma; Z90.49 Acquired absence of other specified parts of digestive tract; Z71.41 Alcohol abuse counseling and surveillance of alcoholic; Z91.81 History of falling; Y93.89 Activity, other specified; Y92.89 Other specified places as the place of occurrence of the external cause; Y99.8 Other external cause status
CPT/HCPCS: 36415; 70450; 71045; 74176; 80048; 80053; 80307; 82140; 82270; 82607; 82746; 82962; 83540; 83550; 83880; 84484; 84702; 85025; 85610; 85730; 86850; 86900; 86901; 86920; 87426; 95819; 97163; 99291; C9113; G0378; J1815; J2001; J2250; J2704; J3480

== ENCOUNTER 2022-12-05 11:00 | Inpatient (IN) | payer OTHER, MEDICAID ==
[~2022-12-05] VITALS: Ht 165.1 cm; Wt 106.1 kg
[2022-12-05 12:14] LABS: Albumin 3.8 g/dL (3.4-5.0); Anion Gap 8 (5-15); BUN/Creatinine Ratio 28.7; Blood Urea Nitrogen 31 mg/dL (7-18); Calcium 9.5 mg/dL (8.5-10.1); Carbon Dioxide 27 mmol/L (21-32); Chloride 109 mmol/L (98-107); GFR African American 66 mL/min; GFR Non-African American 54 mL/min; Glucose 81 mg/dL (74-106); Magnesium 1.5 mg/dL (1.6-2.6); Sodium 144 mmol/L (136-145)
[2022-12-05 12:17] LABS: Alanine Aminotransferase 58 U/L (13-56); Alkaline Phosphatase 79 U/L (45-117); Aspartate Aminotransferase 25 U/L (15-37); Bilirubin, Total 0.6 mg/dL (0.2-1.0); Total Protein 8.1 g/dL (6.4-8.2)
[2022-12-05 12:43] LABS: Basophils # (auto) 0 10 ^3/uL (0-0.2); Basophils % (auto) 0.7 % (0.0-2.0); Eosinophils # (auto) 0 10 ^3/uL (0-0.8); Eosinophils % (auto) 0.7 % (0.0-7.0); Hemoglobin 12.4 g/dL (12.2-16.2); Lymphocytes # (auto) 1.5 10 ^3/uL (0.4-5.4); Lymphocytes % (auto) 21.3 % (10.0-50.0); Mean Corpuscular Hemoglobin 29.9 pg (28.0-32.0); Mean Corpuscular Hgb Conc. 33.5 g/dL (32.0-36.0); Monocytes # (auto) 0.6 10 ^3/uL (0-1.3); Monocytes % (auto) 9.3 % (0.0-12.0); Neutrophils # (auto) 4.6 10 ^3/uL (1.6-8.6); Nucleated Red Blood Cells % 0.1 %; Red Blood Cells 4.16 10^6/uL (4.0-5.20); Red Cell Distribution Width 13.9 % (11.8-14.3); White Blood Cell 6.8 10^3/uL (4.4-10.8)
[2022-12-05] MEDS ORDERED: chlordiazePOXIDE HCL 25 MG CAP PO ONE (17:15)
[2022-12-05] MEDS ORDERED: MORPHINE SULFATE INJ 2 MG/ml SYRG IV PRN (18:45)
[2022-12-05] MEDS ORDERED: PANTOPRAZOLE 40 MG/10 ML VIAL INJ IV ONE (18:45)
[2022-12-05] MEDS ORDERED: ACETAMINOPHEN 325 MG TAB PO PRN (18:45)
[2022-12-05] MEDS ORDERED: NITROGLYCERIN 0.4 MG SL TAB SL PRN (18:45)
[2022-12-05] MEDS ORDERED: DEXTROSE (50%) 50ML SYRG IV PRN (19:00)
[2022-12-05] MEDS ORDERED: chlordiazePOXIDE HCL 25 MG CAP PO PRN (19:45)
[2022-12-05] MEDS ORDERED: FOLIC ACID 1 MG TAB PO ONE (19:45)
[2022-12-05] MEDS ORDERED: MULTIPLE VITAMIN TAB PO ONE (19:45)
[2022-12-05] MEDS ORDERED: THIAMINE 100mg/ml INJ (200mg/2ml VIAL) IV ONE (19:45)
[2022-12-05 20:00] LABS: Cholesterol 220 mg/dL (< 200); HDL Cholesterol 87 mg/dL (40-59); LDL Cholesterol 116 mg/dL (< 100); Triglycerides 128 mg/dL (< 150)
[2022-12-05] MEDS: LORazepam 2MG/ML-1ML VIAL IV SCH (23:45)
[2022-12-06] MEDS: ACCU-CHEK COMFORT CURVE STRIP VI SCH ×5 (02:56→22:23)
[2022-12-06] MEDS: InsuLIN REG 1unit/0.01ml Soln (100units/ml) SC SCH ×5 (02:56→22:00)
[2022-12-06] MEDS: GABAPENTIN 100 MG CAP PO SCH ×4 (02:57→21:50)
[2022-12-06] MEDS: LORazepam 2MG/ML-1ML VIAL IV SCH ×7 (02:58→23:47)
[2022-12-06] MEDS: NABUMETONE 500 MG PO SCH ×3 (03:02→21:50)
[2022-12-06] MEDS ORDERED: MAGNESIUM SULFATE 1GM/100ML 100 ML IV ONE ×2 (03:13→09:28)
[2022-12-06] MEDS: MAGNESIUM SULFATE 1GM/100ML 100 ML IV SCH ×3 (03:15→09:46)
[2022-12-06] MEDS: MAGNESIUM SULFATE 1GM/100ML 100 ML IV ONE ×2 (05:48→06:04)
[2022-12-06] MEDS: SODIUM CHLORIDE 0.9% 1,000 ML IV SCH ×2 (06:08→08:54)
[2022-12-06 06:41] VITALS: BP 111/48
[2022-12-06 08:45] LABS: Basophils # (auto) 0 10 ^3/uL (0-0.2); Basophils % (auto) 0.5 % (0.0-2.0); Eosinophils # (auto) 0.2 10 ^3/uL (0-0.8); Eosinophils % (auto) 2.8 % (0.0-7.0); Hematocrit 32.6 % (36.0-46.0); Hemoglobin 10.7 g/dL (12.2-16.2); Lymphocytes # (auto) 1.7 10 ^3/uL (0.4-5.4); Lymphocytes % (auto) 31.4 % (10.0-50.0); Mean Corpuscular Hemoglobin 30.2 pg (28.0-32.0); Mean Corpuscular Hgb Conc. 32.7 g/dL (32.0-36.0); Mean Corpuscular Volume 92.2 fL (80.0-100.0); Monocytes # (auto) 0.6 10 ^3/uL (0-1.3); Monocytes % (auto) 11.4 % (0.0-12.0); Neutrophils % (auto) 53.9 % (37.0-80.0); Nucleated Red Blood Cells % 0.1 %; Red Blood Cells 3.54 10^6/uL (4.0-5.20); Red Cell Distribution Width 13.8 % (11.8-14.3); White Blood Cell 5.5 10^3/uL (4.4-10.8)
[2022-12-06 09:00] VITALS: BP 115/58
[2022-12-06 09:08] LABS: Calcium 9.1 mg/dL (8.5-10.1); Potassium 3.7 mmol/L (3.5-5.1)
[2022-12-06 09:15] LABS: Albumin 3.1 g/dL (3.4-5.0); BUN/Creatinine Ratio 31.5; Bilirubin, Total 0.4 mg/dL (0.2-1.0); Total Protein 6.6 g/dL (6.4-8.2)
[2022-12-06] MEDS: PANTOPRAZOLE 40 MG/10 ML VIAL INJ IV SCH (09:47)
[2022-12-06] MEDS: THIAMINE 100mg/ml INJ (200mg/2ml VIAL) IV SCH (09:47)
[2022-12-06] MEDS: FOLIC ACID 1 MG TAB PO SCH (09:48)
[2022-12-06] MEDS: ASPirin-EC 81 mg tab PO SCH (09:48)
[2022-12-06] MEDS: FLUoxetine HCL 20 MG CAP PO SCH (09:49)
[2022-12-06] MEDS: ENOXAPARIN SOD 40 MG/0.4 ML SYRINGE SC SCH (09:49)
[2022-12-06] MEDS: amLODIPine BESYLATE 5 MG TAB PO SCH (09:49)
[2022-12-06] MEDS: MULTIPLE VITAMIN TAB PO SCH (09:49)
[2022-12-06] MEDS: carBAMazepine 200 MG TAB PO SCH ×3 (10:30→21:50)
[2022-12-06] MEDS ORDERED: LORazepam 2MG/ML-1ML VIAL IV PRN (10:45)
[2022-12-06 13:43] VITALS: BP 98/59
[2022-12-06 16:32] VITALS: BP 116/61
[2022-12-06] MEDS ORDERED: carBAMazepine 200 MG TAB PO SCH (18:00)
[2022-12-06 20:00] VITALS: BP 114/59
[2022-12-06 22:00] VITALS: BP 114/59
[2022-12-07] MEDS: LORazepam 2MG/ML-1ML VIAL IV SCH ×4 (03:47→15:45)
[2022-12-07] MEDS: SODIUM CHLORIDE 0.9% 1,000 ML IV SCH (04:05)
[2022-12-07 05:00] VITALS: BP 104/48
[2022-12-07 05:44] LABS: Basophils # (auto) 0 10 ^3/uL (0-0.2); Basophils % (auto) 0.4 % (0.0-2.0); Eosinophils # (auto) 0.2 10 ^3/uL (0-0.8); Eosinophils % (auto) 3.3 % (0.0-7.0); Hematocrit 32.8 % (36.0-46.0); Hemoglobin 10.9 g/dL (12.2-16.2); Lymphocytes # (auto) 1.8 10 ^3/uL (0.4-5.4); Lymphocytes % (auto) 36.5 % (10.0-50.0); Mean Corpuscular Hemoglobin 29.5 pg (28.0-32.0); Mean Corpuscular Hgb Conc. 33.1 g/dL (32.0-36.0); Mean Corpuscular Volume 89.1 fL (80.0-100.0); Monocytes # (auto) 0.3 10 ^3/uL (0-1.3); Neutrophils # (auto) 2.6 10 ^3/uL (1.6-8.6); Neutrophils % (auto) 52.8 % (37.0-80.0); Nucleated Red Blood Cells % 0.1 %; Red Blood Cells 3.69 10^6/uL (4.0-5.20); Red Cell Distribution Width 13.7 % (11.8-14.3)
[2022-12-07 05:59] LABS: Magnesium 1.6 mg/dL (1.6-2.6); Potassium 4.3 mmol/L (3.5-5.1)
[2022-12-07 06:02] LABS: Calcium 9.3 mg/dL (8.5-10.1)
[2022-12-07] MEDS: carBAMazepine 200 MG TAB PO SCH ×2 (06:24→14:05)
[2022-12-07] MEDS: GABAPENTIN 100 MG CAP PO SCH ×2 (06:25→14:05)
[2022-12-07] MEDS: ACCU-CHEK COMFORT CURVE STRIP VI SCH ×3 (06:27→16:20)
[2022-12-07] MEDS: InsuLIN REG 1unit/0.01ml Soln (100units/ml) SC SCH ×3 (06:28→16:20)
[2022-12-07 08:00] VITALS: BP 139/74
[2022-12-07] MEDS: PANTOPRAZOLE 40 MG/10 ML VIAL INJ IV SCH (09:11)
[2022-12-07] MEDS: THIAMINE 100mg/ml INJ (200mg/2ml VIAL) IV SCH (09:11)
[2022-12-07] MEDS: ENOXAPARIN SOD 40 MG/0.4 ML SYRINGE SC SCH (09:12)
[2022-12-07] MEDS: FLUoxetine HCL 20 MG CAP PO SCH (09:13)
[2022-12-07] MEDS: ASPirin-EC 81 mg tab PO SCH (09:13)
[2022-12-07] MEDS: MULTIPLE VITAMIN TAB PO SCH (09:14)
[2022-12-07] MEDS: amLODIPine BESYLATE 5 MG TAB PO SCH (09:15)
[2022-12-07] MEDS: FOLIC ACID 1 MG TAB PO SCH (09:16)
[2022-12-07] MEDS: NABUMETONE 500 MG PO SCH (10:00)
[2022-12-07] MEDS ORDERED: MAGNESIUM OXIDE 400 MG TAB PO SCH (10:00)
[2022-12-07] MEDS ORDERED: FOLITAB22 PO (10:19)
[2022-12-07] MEDS ORDERED: MULTTAB75 PO (10:19)
[2022-12-07 13:00] VITALS: BP 160/65
[2022-12-07 15:58] VITALS: BP 139/74
[2022-12-07 16:43] VITALS: BP 142/90
[2022-12-07] MEDS ORDERED: GABA300C10 PO (16:47)
[2022-12-07] MEDS ORDERED: GABAPENTIN 300 MG CAP PO SCH (22:00)
== END 2022-12-07 18:43 | disposition home or self-care (01) | DRG 71 ==
LOC: ER 11:00 → EDUNIT# 11:00 → EDBD 11:00 → TELE 18:44 → TELE-WESTW 12-06 04:15
PROVIDERS: ADMIT Nurse Practitioner Family; ATTEND Internal Medicine Geriatric Medicine
DX: G93.41 Metabolic encephalopathy (principal); F10.139 Alcohol abuse with withdrawal, unspecified; N17.9 Acute kidney failure, unspecified; E11.9 Type 2 diabetes mellitus without complications; E66.01 Morbid (severe) obesity due to excess calories; E83.42 Hypomagnesemia; F10.129 Alcohol abuse with intoxication, unspecified; F17.200 Nicotine dependence, unspecified, uncomplicated; Z20.822 Contact with and (suspected) exposure to COVID-19; Y90.9 Presence of alcohol in blood, level not specified; X58.XXXA Exposure to other specified factors, initial encounter; G40.409 Other generalized epilepsy and epileptic syndromes, not intractable, without status epilepticus; G93.89 Other specified disorders of brain; I11.0 Hypertensive heart disease with heart failure; I50.9 Heart failure, unspecified; S09.90XA Unspecified injury of head, initial encounter; Z79.899 Other long term (current) drug therapy; Z68.38 Body mass index [BMI] 38.0-38.9, adult; Z82.49 Family history of ischemic heart disease and other diseases of the circulatory system; Z83.3 Family history of diabetes mellitus; Z87.828 Personal history of other (healed) physical injury and trauma; Y93.89 Activity, other specified; Y92.89 Other specified places as the place of occurrence of the external cause; Y99.8 Other external cause status
CPT/HCPCS: 36415; 70450; 70551; 71045; 80048; 80053; 80061; 80320; 82962; 83036; 83605; 83735; 84443; 84484; 85025; 87081; 87426; 93005; 93306; 93886; 95819; C9113; G0378

== ENCOUNTER 2022-12-26 10:36 | Inpatient (IN) | payer OTHER, MEDICAID ==
[~2022-12-26] VITALS: Ht 162.6 cm; Wt 112.2 kg
[~2022-12-26 10:36] MED LIST changes: -GAB100C PO; +GABA300C10 PO
[2022-12-26 11:39] LABS: Basophils # (auto) 0.1 10 ^3/uL (0-0.2); Eosinophils # (auto) 0.1 10 ^3/uL (0-0.8); Eosinophils % (auto) 1.8 % (0.0-7.0); Hematocrit 33.5 % (36.0-46.0); Hemoglobin 11.3 g/dL (12.2-16.2); Lymphocytes # (auto) 1.3 10 ^3/uL (0.4-5.4); Mean Corpuscular Hemoglobin 29.3 pg (28.0-32.0); Mean Corpuscular Hgb Conc. 33.7 g/dL (32.0-36.0); Mean Corpuscular Volume 86.9 fL (80.0-100.0); Monocytes # (auto) 0.5 10 ^3/uL (0-1.3); Monocytes % (auto) 8.2 % (0.0-12.0); Red Blood Cells 3.86 10^6/uL (4.0-5.20); Red Cell Distribution Width 13.9 % (11.8-14.3); White Blood Cell 5.9 10^3/uL (4.4-10.8)
[2022-12-26] MEDS ORDERED: cefTRIAXone 1GM/50ML D5W 50 ML IV ONE (11:45)
[2022-12-26] MEDS ORDERED: CLINDAMYCIN 600MG IV 50 ML IV ONE (11:45)
[2022-12-26 11:49] LABS: Urine Bacteria NONE SEEN /hpf (None Seen); Urine Blood Negative /uL (Negative); Urine Hyaline Cast FEW /lpf (0 - 2); Urine WBC 1 /hpf (0 - 5)
[2022-12-26 11:53] LABS: Albumin 3.5 g/dL (3.4-5.0); Calcium 9.9 mg/dL (8.5-10.1)
[2022-12-26 11:56] LABS: Bilirubin, Total 0.3 mg/dL (0.2-1.0)
[2022-12-26] MEDS ORDERED: NITROGLYCERIN 0.4 MG SL TAB SL PRN (14:00)
[2022-12-26] MEDS ORDERED: FUROSEMIDE 40 MG/4 ML VIAL IV ONE (14:00)
[2022-12-26] MEDS ORDERED: SODIUM CHLORIDE 0.9% 1,000 ML IV SCH (14:00)
[2022-12-26] MEDS ORDERED: DEXTROSE (50%) 50ML SYRG IV PRN (14:00)
[2022-12-26] MEDS ORDERED: MORPHINE SULFATE INJ 2 MG/ml SYRG IV PRN ×2 (14:00)
[2022-12-26 14:12] LABS: Amphetamine Screen, Urine NEGATIVE (NEGATIVE); Barbiturate Scree,Urine NEGATIVE (NEGATIVE); Benzodiazephine Screen, Urine NEGATIVE (NEGATIVE); Cannabinoid Screen, Urine NEGATIVE (NEGATIVE); Cocaine Screen, Urine NEGATIVE (NEGATIVE); Opiate Scree,Urine NEGATIVE (NEGATIVE); Phencyclidine Screen, Urine NEGATIVE (NEGATIVE)
[2022-12-26] MEDS: ENOXAPARIN SOD 40 MG/0.4 ML SYRINGE SC SCH (14:27)
[2022-12-26] MEDS ORDERED: IOHEXOL 350 MG/ML 100ML IJ ONE (14:58)
[2022-12-26 16:47] LABS: Amylase 28 U/L (25-115); Lipase 98 U/L (73-393)
[2022-12-26 16:48] LABS: Cholesterol 171 mg/dL (< 200)
[2022-12-26 16:51] LABS: HDL Cholesterol 89 mg/dL (40-59); LDL Cholesterol 81 mg/dL (< 100); Triglycerides 77 mg/dL (< 150)
[2022-12-26] MEDS: InsuLIN REG 1unit/0.01ml Soln (100units/ml) SC SCH ×2 (17:00→22:00)
[2022-12-26] MEDS: CLINDAMYCIN 300MG IV 50 ML IV SCH ×2 (17:03→18:09)
[2022-12-26] MEDS: ACCU-CHEK COMFORT CURVE STRIP VI SCH ×2 (17:25→22:00)
[2022-12-26] MEDS: carBAMazepine 200 MG TAB PO SCH (18:21)
[2022-12-26] MEDS: FUROSEMIDE 40 MG/4 ML VIAL IV SCH (18:22)
[2022-12-26] MEDS: GABAPENTIN 300 MG CAP PO SCH (23:03)
[2022-12-27] MEDS: ACCU-CHEK COMFORT CURVE STRIP VI SCH ×4 (06:00→21:53)
[2022-12-27] MEDS: InsuLIN REG 1unit/0.01ml Soln (100units/ml) SC SCH ×4 (06:00→21:53)
[2022-12-27] MEDS: GABAPENTIN 300 MG CAP PO SCH ×3 (06:17→21:48)
[2022-12-27] MEDS: FUROSEMIDE 40 MG/4 ML VIAL IV SCH ×2 (06:19→17:42)
[2022-12-27 07:06] LABS: Basophils # (auto) 0 10 ^3/uL (0-0.2); Basophils % (auto) 0.9 % (0.0-2.0); Eosinophils # (auto) 0.1 10 ^3/uL (0-0.8); Eosinophils % (auto) 2.1 % (0.0-7.0); Hematocrit 33.2 % (36.0-46.0); Hemoglobin 11.3 g/dL (12.2-16.2); Lymphocytes # (auto) 1.6 10 ^3/uL (0.4-5.4); Lymphocytes % (auto) 30.9 % (10.0-50.0); Mean Corpuscular Hemoglobin 30.1 pg (28.0-32.0); Mean Corpuscular Hgb Conc. 34.2 g/dL (32.0-36.0); Monocytes # (auto) 0.5 10 ^3/uL (0-1.3); Monocytes % (auto) 9.2 % (0.0-12.0); Neutrophils % (auto) 56.9 % (37.0-80.0); Nucleated Red Blood Cells % 0.1 %; Red Blood Cells 3.77 10^6/uL (4.0-5.20); Red Cell Distribution Width 14.1 % (11.8-14.3); White Blood Cell 5.3 10^3/uL (4.4-10.8)
[2022-12-27 07:21] LABS: Potassium 3.7 mmol/L (3.5-5.1)
[2022-12-27 07:26] LABS: Albumin 3.1 g/dL (3.4-5.0); BUN/Creatinine Ratio 17.7 (10.0-20.0); Bilirubin, Total 0.3 mg/dL (0.2-1.0); Calcium 9.1 mg/dL (8.5-10.1)
[2022-12-27] MEDS ORDERED: CYANOCOBALAMIN PO SCH (10:00)
[2022-12-27] MEDS ORDERED: FOLIC ACID PO SCH (10:00)
[2022-12-27] MEDS ORDERED: PYRIDOXINE PO SCH (10:00)
[2022-12-27] MEDS: cefTRIAXone 1GM/50ML D5W 50 ML IV SCH (11:48)
[2022-12-27] MEDS: ENOXAPARIN SOD 40 MG/0.4 ML SYRINGE SC SCH (11:48)
[2022-12-27] MEDS: ASPirin-EC 81 mg tab PO SCH (11:49)
[2022-12-27] MEDS: B-COMPLEX W/ C & FOLIC ACID(NEPHROVITE TAB) PO SCH (11:49)
[2022-12-27] MEDS: POTASSIUM CHL 10 Meq TABLET PO SCH (11:49)
[2022-12-27] MEDS: THIAMINE HCL 100 MG TAB PO SCH (11:49)
[2022-12-27] MEDS: ENALAPRIL MALEATE 10 MG TAB PO SCH (11:51)
[2022-12-27] MEDS: amLODIPine BESYLATE 5 MG TAB PO SCH (11:51)
[2022-12-27] MEDS: MULTIPLE VITAMINS W/ MINERALS TAB PO SCH (11:52)
[2022-12-27 16:53] VITALS: BP 127/52
[2022-12-27 17:10] VITALS: BP 127/52
[2022-12-27] MEDS: carBAMazepine 200 MG TAB PO SCH (17:42)
[2022-12-27 20:00] VITALS: BP 126/80
[2022-12-27] MEDS: HYDROcodone-ACET 10/325MG TAB PO PRN (21:50)
[2022-12-27 22:00] VITALS: BP 126/80
[2022-12-28] VITALS (7 sets, daily range): BP systolic 95–129; BP diastolic 52–82
[2022-12-28] MEDS: FUROSEMIDE 40 MG/4 ML VIAL IV SCH (06:09)
[2022-12-28] MEDS: GABAPENTIN 300 MG CAP PO SCH ×3 (06:09→21:17)
[2022-12-28] MEDS: InsuLIN REG 1unit/0.01ml Soln (100units/ml) SC SCH ×4 (06:16→21:22)
[2022-12-28] MEDS: ACCU-CHEK COMFORT CURVE STRIP VI SCH ×4 (06:16→21:22)
[2022-12-28 06:43] LABS: Basophils # (auto) 0 10 ^3/uL (0-0.2); Basophils % (auto) 0.4 % (0.0-2.0); Eosinophils # (auto) 0.1 10 ^3/uL (0-0.8); Eosinophils % (auto) 2.4 % (0.0-7.0); Hematocrit 31.9 % (36.0-46.0); Hemoglobin 10.9 g/dL (12.2-16.2); Lymphocytes # (auto) 1.6 10 ^3/uL (0.4-5.4); Lymphocytes % (auto) 32.8 % (10.0-50.0); Mean Corpuscular Hemoglobin 29.6 pg (28.0-32.0); Mean Corpuscular Hgb Conc. 34.2 g/dL (32.0-36.0); Mean Corpuscular Volume 86.4 fL (80.0-100.0); Monocytes # (auto) 0.6 10 ^3/uL (0-1.3); Monocytes % (auto) 12.5 % (0.0-12.0); Neutrophils # (auto) 2.6 10 ^3/uL (1.6-8.6); Neutrophils % (auto) 51.9 % (37.0-80.0); Nucleated Red Blood Cells % 0.1 %; Red Blood Cells 3.69 10^6/uL (4.0-5.20); Red Cell Distribution Width 14.2 % (11.8-14.3)
[2022-12-28 07:26] LABS: BUN/Creatinine Ratio 20.9 (10.0-20.0); Potassium 3.5 mmol/L (3.5-5.1)
[2022-12-28] MEDS: ASPirin-EC 81 mg tab PO SCH (10:12)
[2022-12-28] MEDS: cefTRIAXone 1GM/50ML D5W 50 ML IV SCH (10:12)
[2022-12-28] MEDS: THIAMINE HCL 100 MG TAB PO SCH (10:12)
[2022-12-28] MEDS: amLODIPine BESYLATE 5 MG TAB PO SCH (10:13)
[2022-12-28] MEDS: POTASSIUM CHL 10 Meq TABLET PO SCH (10:13)
[2022-12-28] MEDS: MULTIPLE VITAMINS W/ MINERALS TAB PO SCH (10:13)
[2022-12-28] MEDS: B-COMPLEX W/ C & FOLIC ACID(NEPHROVITE TAB) PO SCH (10:13)
[2022-12-28] MEDS: ENALAPRIL MALEATE 10 MG TAB PO SCH (10:13)
[2022-12-28] MEDS: ENOXAPARIN SOD 40 MG/0.4 ML SYRINGE SC SCH (10:14)
[2022-12-28] MEDS: FUROSEMIDE 100 MG/10ML VIAL IV SCH (17:35)
[2022-12-28] MEDS: carBAMazepine 200 MG TAB PO SCH (17:36)
[2022-12-28] MEDS ORDERED: TEMAZEPAM 15 MG CAP PO PRN (20:45)
[2022-12-29 05:00] VITALS: BP 119/50
[2022-12-29] MEDS: GABAPENTIN 300 MG CAP PO SCH ×2 (05:43→14:20)
[2022-12-29] MEDS: FUROSEMIDE 100 MG/10ML VIAL IV SCH ×2 (05:43→18:00)
[2022-12-29] MEDS: HYDROcodone-ACET 10/325MG TAB PO PRN (05:57)
[2022-12-29] MEDS: ACCU-CHEK COMFORT CURVE STRIP VI SCH ×3 (05:57→17:00)
[2022-12-29] MEDS: InsuLIN REG 1unit/0.01ml Soln (100units/ml) SC SCH ×3 (05:58→17:00)
[2022-12-29 06:51] LABS: Basophils # (auto) 0 10 ^3/uL (0-0.2); Basophils % (auto) 0.6 % (0.0-2.0); Eosinophils # (auto) 0.1 10 ^3/uL (0-0.8); Eosinophils % (auto) 1.9 % (0.0-7.0); Hematocrit 33.1 % (36.0-46.0); Hemoglobin 11.2 g/dL (12.2-16.2); Lymphocytes # (auto) 1.7 10 ^3/uL (0.4-5.4); Lymphocytes % (auto) 30.6 % (10.0-50.0); Mean Corpuscular Hemoglobin 29.8 pg (28.0-32.0); Mean Corpuscular Volume 87.8 fL (80.0-100.0); Monocytes # (auto) 0.5 10 ^3/uL (0-1.3); Neutrophils # (auto) 3.1 10 ^3/uL (1.6-8.6); Neutrophils % (auto) 56.9 % (37.0-80.0); Red Blood Cells 3.76 10^6/uL (4.0-5.20); White Blood Cell 5.5 10^3/uL (4.4-10.8)
[2022-12-29 07:45] LABS: Potassium 3.7 mmol/L (3.5-5.1)
[2022-12-29 07:55] LABS: Calcium 9.2 mg/dL (8.5-10.1)
[2022-12-29 08:00] VITALS: BP 116/48
[2022-12-29] MEDS: THIAMINE HCL 100 MG TAB PO SCH (10:11)
[2022-12-29] MEDS: cefTRIAXone 1GM/50ML D5W 50 ML IV SCH (10:11)
[2022-12-29] MEDS: MULTIPLE VITAMINS W/ MINERALS TAB PO SCH (10:12)
[2022-12-29] MEDS: ENOXAPARIN SOD 40 MG/0.4 ML SYRINGE SC SCH (10:12)
[2022-12-29] MEDS: POTASSIUM CHL 10 Meq TABLET PO SCH (10:12)
[2022-12-29] MEDS: ASPirin-EC 81 mg tab PO SCH (10:12)
[2022-12-29] MEDS: B-COMPLEX W/ C & FOLIC ACID(NEPHROVITE TAB) PO SCH (10:12)
[2022-12-29] MEDS: amLODIPine BESYLATE 5 MG TAB PO SCH (10:13)
[2022-12-29] MEDS: ENALAPRIL MALEATE 10 MG TAB PO SCH (10:13)
[2022-12-29 12:00] VITALS: BP 131/58
[2022-12-29] MEDS ORDERED: DOXY-332 PO (12:58)
[2022-12-29 15:57] VITALS: BP 131/58
[2022-12-29 16:00] VITALS: BP 130/94
[2022-12-29] MEDS: carBAMazepine 200 MG TAB PO SCH (18:00)
== END 2022-12-29 18:15 | disposition home health service (06) | DRG 602 ==
LOC: EDBD 10:36 → ER 10:36 → TELE 14:03 → TELE-WESTW 12-27 16:21
PROVIDERS: ADMIT Registered Nurse; ATTEND Internal Medicine Pulmonary Disease
PROC: 5A09357 Assistance with Respiratory Ventilation, Less than 24 Consecutive Hours, Continuous Positive Airway Pressure (ICD-10-PCS; principal; 2022-12-28)
DX: L03.115 Cellulitis of right lower limb (principal); I50.31 Acute diastolic (congestive) heart failure; Z68.41 Body mass index [BMI] 40.0-44.9, adult; L03.116 Cellulitis of left lower limb; E11.9 Type 2 diabetes mellitus without complications; E66.01 Morbid (severe) obesity due to excess calories; I11.0 Hypertensive heart disease with heart failure; G47.33 Obstructive sleep apnea (adult) (pediatric); R79.89 Other specified abnormal findings of blood chemistry; Z20.822 Contact with and (suspected) exposure to COVID-19; F10.10 Alcohol abuse, uncomplicated; Z91.119 Patient's noncompliance with dietary regimen due to unspecified reason; Z79.4 Long term (current) use of insulin; Z83.3 Family history of diabetes mellitus; Z90.49 Acquired absence of other specified parts of digestive tract; Z71.51 Drug abuse counseling and surveillance of drug abuser; Z71.3 Dietary counseling and surveillance
CPT/HCPCS: 36415; 71045; 71275; 76705; 80048; 80053; 80061; 80307; 80320; 81001; 82150; 82962; 82977; 83605; 83690; 83880; 84443; 84484; 85025; 85379; 87040; 87086; 87426; 93005; 93925; 93970; 94660; 97163; G0378; J0696; J3490

== ENCOUNTER 2023-03-01 12:44 | Inpatient (IN) | payer OTHER, MEDICAID ==
[~2023-03-01] VITALS: Ht 162.6 cm; Wt 104.4 kg
[~2023-03-01 12:44] MED LIST changes: -AMLO-489 PO; +AMLO1TAB22 PO; +DOXY-448 PO; -ENAL10TA13 PO; +ENAL1TAB47 PO; +GABA-1250 PO; -GABA300C10 PO; +NABU-72 PO; -NABU500T3 PO; -POTA-167; +POTA-211
[2023-03-01 14:08] LABS: Basophils # (auto) 0 10 ^3/uL (0-0.2); Basophils % (auto) 0.3 % (0.0-2.0); Eosinophils # (auto) 0.1 10 ^3/uL (0-0.8); Eosinophils % (auto) 0.6 % (0.0-7.0); Hematocrit 33.7 % (36.0-46.0); Hemoglobin 11.3 g/dL (12.2-16.2); Lymphocytes # (auto) 1.6 10 ^3/uL (0.4-5.4); Lymphocytes % (auto) 17.8 % (10.0-50.0); Mean Corpuscular Hemoglobin 28.8 pg (28.0-32.0); Mean Corpuscular Hgb Conc. 33.7 g/dL (32.0-36.0); Mean Corpuscular Volume 85.7 fL (80.0-100.0); Monocytes # (auto) 0.8 10 ^3/uL (0-1.3); Monocytes % (auto) 8.8 % (0.0-12.0); Neutrophils # (auto) 6.5 10 ^3/uL (1.6-8.6); Neutrophils % (auto) 72.5 % (37.0-80.0); Nucleated Red Blood Cells % 0.1 %; Red Blood Cells 3.93 10^6/uL (4.0-5.20); Red Cell Distribution Width 14.2 % (11.8-14.3); White Blood Cell 8.9 10^3/uL (4.4-10.8)
[2023-03-01] MEDS ORDERED: IOHEXOL 350 MG/ML 100ML IJ ONE (14:15)
[2023-03-01] MEDS ORDERED: LORazepam 2MG/ML-1ML VIAL IM ONE ×2 (14:30→15:45)
[2023-03-01 14:53] LABS: INR 0.98 (0.9-1.15); Partial Thromboplastin Time 22.8 sec (24.6-33.4)
[2023-03-01 16:01] LABS: Albumin 3.3 g/dL (3.4-5.0); Calcium 9.3 mg/dL (8.5-10.1); Potassium 3.2 mmol/L (3.5-5.1)
[2023-03-01 16:04] LABS: BUN/Creatinine Ratio 23.7 (10.0-20.0); Bilirubin, Total 0.7 mg/dL (0.2-1.0); Total Protein 6.5 g/dL (6.4-8.2)
[2023-03-01 16:05] LABS: Urine Bacteria NONE SEEN /hpf (None Seen); Urine Blood TRACE /uL (Negative); Urine WBC 170 /hpf (0 - 5)
[2023-03-01 16:09] LABS: Urine Specific Gravity > 1.050 (1.001-1.035)
[2023-03-01 17:21] LABS: Amphetamine Screen, Urine NEGATIVE (NEGATIVE); Barbiturate Scree,Urine NEGATIVE (NEGATIVE); Benzodiazephine Screen, Urine NEGATIVE (NEGATIVE); Cannabinoid Screen, Urine NEGATIVE (NEGATIVE); Cocaine Screen, Urine NEGATIVE (NEGATIVE); Opiate Scree,Urine NEGATIVE (NEGATIVE); Phencyclidine Screen, Urine NEGATIVE (NEGATIVE)
[2023-03-01] MEDS ORDERED: cefTRIAXone 1GM/50ML D5W 50 ML IV ONE (17:45)
[2023-03-01] MEDS ORDERED: ACETAMINOPHEN 325 MG TAB PO PRN (19:30)
[2023-03-01] MEDS ORDERED: ONDANSETRON HCL 4 MG/2 ML VIAL IV PRN (19:30)
[2023-03-01] MEDS ORDERED: DOCUSATE SOD 100 MG CAP PO PRN (19:30)
[2023-03-01] MEDS ORDERED: MORPHINE SULFATE INJ 2 MG/ml SYRG IV PRN (19:30)
[2023-03-01] MEDS ORDERED: NITROGLYCERIN 0.4 MG SL TAB SL PRN (19:30)
[2023-03-01] MEDS ORDERED: CARB200T5 PO (19:51)
[2023-03-01] MEDS ORDERED: FENO160T PO (19:51)
[2023-03-01] MEDS ORDERED: LOSA50TA46 PO (19:51)
[2023-03-01] MEDS ORDERED: GAB100C PO (19:51)
[2023-03-01] MEDS ORDERED: BUSP7.5T8 PO (19:51)
[2023-03-01] MEDS ORDERED: DEXTROSE (50%) 50ML SYRG IV PRN (22:15)
[2023-03-01] MEDS: busPIRone HCL 10 MG TAB PO SCH (22:52)
[2023-03-01] MEDS: carBAMazepine 200 MG TAB PO SCH (22:52)
[2023-03-01] MEDS: SODIUM CHLOR 0.9% PF (SALINE LOCK) 10ML VIAL/SYR IV SCH (22:52)
[2023-03-01] MEDS: GABAPENTIN 100 MG CAP PO SCH (22:52)
[2023-03-02 06:44] LABS: Albumin 3.4 g/dL (3.4-5.0); BUN/Creatinine Ratio 22.1 (10.0-20.0)
[2023-03-02 06:46] LABS: Basophils # (auto) 0 10 ^3/uL (0-0.2); Basophils % (auto) 0.3 % (0.0-2.0); Eosinophils # (auto) 0.1 10 ^3/uL (0-0.8); Eosinophils % (auto) 1.7 % (0.0-7.0); Hematocrit 32.5 % (36.0-46.0); Hemoglobin 10.9 g/dL (12.2-16.2); Lymphocytes # (auto) 2.3 10 ^3/uL (0.4-5.4); Lymphocytes % (auto) 31.8 % (10.0-50.0); Mean Corpuscular Hemoglobin 29.2 pg (28.0-32.0); Mean Corpuscular Hgb Conc. 33.5 g/dL (32.0-36.0); Monocytes # (auto) 0.6 10 ^3/uL (0-1.3); Monocytes % (auto) 7.8 % (0.0-12.0); Neutrophils # (auto) 4.3 10 ^3/uL (1.6-8.6); Neutrophils % (auto) 58.4 % (37.0-80.0); Red Blood Cells 3.73 10^6/uL (4.0-5.20); Red Cell Distribution Width 14.2 % (11.8-14.3); White Blood Cell 7.3 10^3/uL (4.4-10.8)
[2023-03-02 06:47] LABS: Bilirubin, Total 0.6 mg/dL (0.2-1.0); Total Protein 7.4 g/dL (6.4-8.2)
[2023-03-02] MEDS: ACCU-CHEK COMFORT CURVE STRIP VI SCH ×4 (07:00→22:00)
[2023-03-02] MEDS: InsuLIN REG 1unit/0.01ml Soln (100units/ml) SC SCH ×4 (07:00→22:00)
[2023-03-02] MEDS: MAGNESIUM OXIDE 400 MG TAB PO SCH (08:29)
[2023-03-02] MEDS: THIAMINE HCL 100 MG TAB PO SCH (08:29)
[2023-03-02] MEDS: carBAMazepine 200 MG TAB PO SCH ×3 (08:30→22:59)
[2023-03-02] MEDS: GABAPENTIN 100 MG CAP PO SCH ×3 (08:30→22:59)
[2023-03-02] MEDS: FLUoxetine HCL 20 MG CAP PO SCH (08:30)
[2023-03-02] MEDS: ASPirin-EC 81 mg tab PO SCH (08:30)
[2023-03-02] MEDS: FOLIC ACID PO SCH (08:31)
[2023-03-02] MEDS: CYANOCOBALAMIN PO SCH (08:31)
[2023-03-02] MEDS: SODIUM CHLOR 0.9% PF (SALINE LOCK) 10ML VIAL/SYR IV SCH ×3 (08:31→22:00)
[2023-03-02] MEDS: LOSARTAN POTASSIUM 50 MG TAB PO SCH (08:31)
[2023-03-02] MEDS: PYRIDOXINE PO SCH (08:31)
[2023-03-02] MEDS: busPIRone HCL 10 MG TAB PO SCH ×2 (08:31→22:59)
[2023-03-02] MEDS: cefTRIAXone 1GM/50ML D5W 50 ML IV SCH (08:31)
[2023-03-02] MEDS ORDERED: hydrOXYzine 25 MG TAB or CAP PO PRN (09:00)
[2023-03-02] MEDS ORDERED: LORazepam 0.5 MG TAB PO PRN (11:45)
[2023-03-02] MEDS ORDERED: carBAMazepine 200 MG TAB PO SCH (18:00)
[2023-03-02 20:00] VITALS: BP 104/59
[2023-03-02 22:00] VITALS: BP 104/59
[2023-03-02] MEDS ORDERED: LORazepam 2MG/ML-1ML VIAL IV PRN (22:00)
[2023-03-03 05:00] VITALS: BP 115/52
[2023-03-03] MEDS: carBAMazepine 200 MG TAB PO SCH ×3 (06:00→22:09)
[2023-03-03] MEDS: GABAPENTIN 100 MG CAP PO SCH ×3 (06:00→22:09)
[2023-03-03 06:10] LABS: Basophils # (auto) 0 10 ^3/uL (0-0.2); Basophils % (auto) 0.3 % (0.0-2.0); Eosinophils # (auto) 0.1 10 ^3/uL (0-0.8); Eosinophils % (auto) 2.5 % (0.0-7.0); Hemoglobin 9.7 g/dL (12.2-16.2); Lymphocytes % (auto) 34.4 % (10.0-50.0); Mean Corpuscular Hemoglobin 29.6 pg (28.0-32.0); Mean Corpuscular Hgb Conc. 34.6 g/dL (32.0-36.0); Mean Corpuscular Volume 85.7 fL (80.0-100.0); Monocytes # (auto) 0.5 10 ^3/uL (0-1.3); Monocytes % (auto) 8.9 % (0.0-12.0); Neutrophils # (auto) 3.1 10 ^3/uL (1.6-8.6); Neutrophils % (auto) 53.9 % (37.0-80.0); Red Blood Cells 3.26 10^6/uL (4.0-5.20); Red Cell Distribution Width 13.8 % (11.8-14.3); White Blood Cell 5.7 10^3/uL (4.4-10.8)
[2023-03-03] MEDS: InsuLIN REG 1unit/0.01ml Soln (100units/ml) SC SCH ×4 (06:21→22:03)
[2023-03-03] MEDS: ACCU-CHEK COMFORT CURVE STRIP VI SCH ×4 (06:22→22:09)
[2023-03-03] MEDS: SODIUM CHLOR 0.9% PF (SALINE LOCK) 10ML VIAL/SYR IV SCH ×3 (06:23→22:09)
[2023-03-03 06:26] LABS: Potassium 3.3 mmol/L (3.5-5.1)
[2023-03-03 06:37] LABS: BUN/Creatinine Ratio 31.4 (10.0-20.0)
[2023-03-03 08:00] VITALS: BP 104/59
[2023-03-03 09:00] VITALS: BP 103/41
[2023-03-03] MEDS: CYANOCOBALAMIN PO SCH (10:00)
[2023-03-03] MEDS: PYRIDOXINE PO SCH (10:00)
[2023-03-03] MEDS: LOSARTAN POTASSIUM 50 MG TAB PO SCH (10:00)
[2023-03-03] MEDS: FOLIC ACID PO SCH (10:00)
[2023-03-03] MEDS: FLUoxetine HCL 20 MG CAP PO SCH (10:59)
[2023-03-03] MEDS: MAGNESIUM OXIDE 400 MG TAB PO SCH (10:59)
[2023-03-03] MEDS: THIAMINE HCL 100 MG TAB PO SCH (11:00)
[2023-03-03] MEDS: busPIRone HCL 10 MG TAB PO SCH ×2 (11:02→22:08)
[2023-03-03] MEDS: ASPirin-EC 81 mg tab PO SCH (11:02)
[2023-03-03] MEDS: cefTRIAXone 1GM/50ML D5W 50 ML IV SCH (11:03)
[2023-03-03 13:00] VITALS: BP 102/44
[2023-03-03] MEDS ORDERED: POTASSIUM EFFERVESENT TAB 25 MEQ PO ONE (13:15)
[2023-03-03] MEDS ORDERED: FUROSEMIDE 20 MG TAB PO ONE (13:15)
[2023-03-03 17:00] VITALS: BP 86/51
[2023-03-03] MEDS: HYDROcodone-ACET 5/325MG TAB PO PRN (20:43)
[2023-03-03 21:54] VITALS: BP 111/50
[2023-03-03] MEDS: TEMAZEPAM 15 MG CAP PO PRN (22:09)
[2023-03-04] MEDS: SODIUM CHLOR 0.9% PF (SALINE LOCK) 10ML VIAL/SYR IV SCH ×3 (06:02→21:49)
[2023-03-04] MEDS: GABAPENTIN 100 MG CAP PO SCH ×3 (06:02→21:49)
[2023-03-04] MEDS: carBAMazepine 200 MG TAB PO SCH ×3 (06:02→21:48)
[2023-03-04] MEDS: InsuLIN REG 1unit/0.01ml Soln (100units/ml) SC SCH ×4 (06:33→21:55)
[2023-03-04] MEDS: ACCU-CHEK COMFORT CURVE STRIP VI SCH ×4 (06:33→21:49)
[2023-03-04 06:42] LABS: Basophils # (auto) 0 10 ^3/uL (0-0.2); Basophils % (auto) 0.4 % (0.0-2.0); Eosinophils # (auto) 0.1 10 ^3/uL (0-0.8); Eosinophils % (auto) 2.3 % (0.0-7.0); Hemoglobin 10.1 g/dL (12.2-16.2); Lymphocytes % (auto) 31.8 % (10.0-50.0); Mean Corpuscular Hemoglobin 29.9 pg (28.0-32.0); Mean Corpuscular Hgb Conc. 34.7 g/dL (32.0-36.0); Mean Corpuscular Volume 86.1 fL (80.0-100.0); Monocytes # (auto) 0.5 10 ^3/uL (0-1.3); Monocytes % (auto) 8.2 % (0.0-12.0); Neutrophils # (auto) 3.6 10 ^3/uL (1.6-8.6); Neutrophils % (auto) 57.3 % (37.0-80.0); Red Blood Cells 3.38 10^6/uL (4.0-5.20); Red Cell Distribution Width 13.5 % (11.8-14.3); White Blood Cell 6.3 10^3/uL (4.4-10.8)
[2023-03-04 07:33] LABS: Potassium 3.6 mmol/L (3.5-5.1)
[2023-03-04 07:36] LABS: BUN/Creatinine Ratio 29.5 (10.0-20.0)
[2023-03-04] MEDS: HYDROcodone-ACET 5/325MG TAB PO PRN ×3 (08:32→21:49)
[2023-03-04 09:00] VITALS: BP 123/77
[2023-03-04] MEDS: PYRIDOXINE PO SCH (10:00)
[2023-03-04] MEDS: CYANOCOBALAMIN PO SCH (10:00)
[2023-03-04] MEDS: FOLIC ACID PO SCH (10:00)
[2023-03-04] MEDS: cefTRIAXone 1GM/50ML D5W 50 ML IV SCH (10:23)
[2023-03-04] MEDS: ASPirin-EC 81 mg tab PO SCH (10:24)
[2023-03-04] MEDS: busPIRone HCL 10 MG TAB PO SCH ×2 (10:24→21:49)
[2023-03-04] MEDS: FLUoxetine HCL 20 MG CAP PO SCH (10:24)
[2023-03-04] MEDS: MAGNESIUM OXIDE 400 MG TAB PO SCH (10:24)
[2023-03-04] MEDS: LOSARTAN POTASSIUM 50 MG TAB PO SCH (10:25)
[2023-03-04] MEDS: THIAMINE HCL 100 MG TAB PO SCH (11:54)
[2023-03-04 13:00] VITALS: BP 123/76
[2023-03-04 17:00] VITALS: BP 111/51
[2023-03-04] MEDS: TEMAZEPAM 15 MG CAP PO PRN (21:49)
[2023-03-04 22:26] VITALS: BP 118/66
[2023-03-05] MEDS: SODIUM CHLOR 0.9% PF (SALINE LOCK) 10ML VIAL/SYR IV SCH ×3 (05:51→21:22)
[2023-03-05] MEDS: carBAMazepine 200 MG TAB PO SCH ×3 (05:51→21:22)
[2023-03-05] MEDS: GABAPENTIN 100 MG CAP PO SCH ×3 (05:51→21:20)
[2023-03-05 05:57] VITALS: BP 118/48
[2023-03-05] MEDS: ACCU-CHEK COMFORT CURVE STRIP VI SCH ×4 (06:22→21:22)
[2023-03-05] MEDS: InsuLIN REG 1unit/0.01ml Soln (100units/ml) SC SCH ×4 (06:23→22:00)
[2023-03-05 06:36] LABS: BUN/Creatinine Ratio 26.1 (10.0-20.0); Basophils # (auto) 0 10 ^3/uL (0-0.2); Basophils % (auto) 0.5 % (0.0-2.0); Eosinophils # (auto) 0.1 10 ^3/uL (0-0.8); Eosinophils % (auto) 2.1 % (0.0-7.0); Hematocrit 29.6 % (36.0-46.0); Hemoglobin 9.9 g/dL (12.2-16.2); Lymphocytes % (auto) 32.9 % (10.0-50.0); Mean Corpuscular Hemoglobin 28.9 pg (28.0-32.0); Mean Corpuscular Hgb Conc. 33.6 g/dL (32.0-36.0); Mean Corpuscular Volume 86.2 fL (80.0-100.0); Monocytes # (auto) 0.5 10 ^3/uL (0-1.3); Monocytes % (auto) 8.2 % (0.0-12.0); Neutrophils # (auto) 3.4 10 ^3/uL (1.6-8.6); Neutrophils % (auto) 56.3 % (37.0-80.0); Potassium 4.2 mmol/L (3.5-5.1); Red Blood Cells 3.43 10^6/uL (4.0-5.20); Red Cell Distribution Width 13.8 % (11.8-14.3)
[2023-03-05 09:00] VITALS: BP 114/56
[2023-03-05] MEDS: HYDROcodone-ACET 5/325MG TAB PO PRN ×2 (09:14→21:21)
[2023-03-05] MEDS: cefTRIAXone 1GM/50ML D5W 50 ML IV SCH (09:14)
[2023-03-05] MEDS: FLUoxetine HCL 20 MG CAP PO SCH (09:14)
[2023-03-05] MEDS: MAGNESIUM OXIDE 400 MG TAB PO SCH (09:14)
[2023-03-05] MEDS: ASPirin-EC 81 mg tab PO SCH (09:14)
[2023-03-05] MEDS: busPIRone HCL 10 MG TAB PO SCH ×2 (09:15→21:21)
[2023-03-05] MEDS: LOSARTAN POTASSIUM 50 MG TAB PO SCH (09:18)
[2023-03-05] MEDS: FOLIC ACID PO SCH (09:20)
[2023-03-05] MEDS: CYANOCOBALAMIN PO SCH (09:20)
[2023-03-05] MEDS: THIAMINE HCL 100 MG TAB PO SCH (09:20)
[2023-03-05] MEDS: PYRIDOXINE PO SCH (09:20)
[2023-03-05] MEDS ORDERED: LORazepam 2MG/ML-1ML VIAL IV PRN (10:30)
[2023-03-05] MEDS ORDERED: GADOTERATE MEG 10 MMOL/20ml INJ (0.5MMOL/ml) IV ONE (11:00)
[2023-03-05 13:00] VITALS: BP 118/71
[2023-03-05 17:00] VITALS: BP 106/80
[2023-03-05 22:00] VITALS: BP 129/78
[2023-03-05] MEDS: TEMAZEPAM 15 MG CAP PO PRN (22:57)
[2023-03-06 05:00] VITALS: BP 102/63
[2023-03-06] MEDS: SODIUM CHLOR 0.9% PF (SALINE LOCK) 10ML VIAL/SYR IV SCH (06:31)
[2023-03-06] MEDS: GABAPENTIN 100 MG CAP PO SCH (06:31)
[2023-03-06] MEDS: carBAMazepine 200 MG TAB PO SCH (06:31)
[2023-03-06] MEDS: ACCU-CHEK COMFORT CURVE STRIP VI SCH ×2 (06:35→11:30)
[2023-03-06] MEDS: InsuLIN REG 1unit/0.01ml Soln (100units/ml) SC SCH ×2 (06:36→11:30)
[2023-03-06 09:00] VITALS: BP 122/59
[2023-03-06] MEDS: cefTRIAXone 1GM/50ML D5W 50 ML IV SCH (09:00)
[2023-03-06] MEDS: MAGNESIUM OXIDE 400 MG TAB PO SCH (09:33)
[2023-03-06] MEDS: THIAMINE HCL 100 MG TAB PO SCH (09:33)
[2023-03-06] MEDS: ASPirin-EC 81 mg tab PO SCH (09:33)
[2023-03-06] MEDS ORDERED: MULTTAB75 PO (09:33)
[2023-03-06] MEDS: busPIRone HCL 10 MG TAB PO SCH (09:33)
[2023-03-06] MEDS: FLUoxetine HCL 20 MG CAP PO SCH (09:33)
[2023-03-06] MEDS: LOSARTAN POTASSIUM 50 MG TAB PO SCH (09:33)
[2023-03-06] MEDS: PYRIDOXINE PO SCH (09:34)
[2023-03-06] MEDS: FOLIC ACID PO SCH (09:34)
[2023-03-06] MEDS: CYANOCOBALAMIN PO SCH (09:34)
[2023-03-06] MEDS: HYDROcodone-ACET 5/325MG TAB PO PRN (09:40)
[2023-03-06 10:06] VITALS: BP 122/59
[2023-03-06 12:29] VITALS: BP 112/59
[2023-03-11] MEDS ORDERED: ALPR0.5T PO (09:01)
== END 2023-03-06 12:34 | disposition home or self-care (01) | DRG 690 ==
LOC: EDBD 12:44 → ER 12:44 → TELE 19:28 → TELE-EAST 03-02 18:04
PROVIDERS: ADMIT Nurse Practitioner Family; ATTEND Internal Medicine Pulmonary Disease
DX: N39.0 Urinary tract infection, site not specified (principal); I50.9 Heart failure, unspecified; I11.0 Hypertensive heart disease with heart failure; E78.5 Hyperlipidemia, unspecified; E11.9 Type 2 diabetes mellitus without complications; F41.9 Anxiety disorder, unspecified; F31.9 Bipolar disorder, unspecified; F17.200 Nicotine dependence, unspecified, uncomplicated; E66.01 Morbid (severe) obesity due to excess calories; G40.909 Epilepsy, unspecified, not intractable, without status epilepticus; G47.00 Insomnia, unspecified; Z90.49 Acquired absence of other specified parts of digestive tract; Z83.3 Family history of diabetes mellitus; Z82.0 Family history of epilepsy and other diseases of the nervous system; Z82.49 Family history of ischemic heart disease and other diseases of the circulatory system; Z79.899 Other long term (current) drug therapy; Z68.39 Body mass index [BMI] 39.0-39.9, adult
CPT/HCPCS: 36415; 70450; 70496; 70551; 70553; 71045; 80048; 80053; 80307; 80320; 81001; 82962; 83735; 83880; 84443; 84484; 85025; 85610; 85730; 87086; 93005; 94640; 96365; 96372; 97116; 97163; 97530; G0378; J0696

== ENCOUNTER 2023-03-20 12:27 | Inpatient (IN) | payer OTHER, MEDICAID ==
[~2023-03-20] VITALS: Ht 165.1 cm; Wt 104.5 kg
[~2023-03-20 12:27] MED LIST changes: +ALPR0.5T PO; -AMLO1TAB22 PO; +BUSP7.5T8 PO; +CARB200T5 PO; -CEPH500C PO; -DOXY-448 PO; -ENAL1TAB47 PO; +FENO160T PO; +GAB100C PO; -GABA-1250 PO; +LOSA50TA46 PO
[2023-03-20 13:30] LABS: Urine WBC None Seen /hpf (0 - 5)
[2023-03-20] MEDS ORDERED: PIPERACILLIN-TAZOB 3.375GM 100 ML IV ONE (13:45)
[2023-03-20] MEDS ORDERED: FUROSEMIDE 100 MG/10ML VIAL IV ONE (13:45)
[2023-03-20 13:47] LABS: Urine Bacteria NONE SEEN /hpf (None Seen); Urine Blood Negative /uL (Negative); Urine Specific Gravity 1.007 (1.001-1.035)
[2023-03-20 14:28] LABS: Basophils # (auto) 0 10 ^3/uL (0-0.2); Basophils % (auto) 0.5 % (0.0-2.0); Eosinophils # (auto) 0.1 10 ^3/uL (0-0.8); Eosinophils % (auto) 1.2 % (0.0-7.0); Hematocrit 29.7 % (36.0-46.0); Hemoglobin 10.3 g/dL (12.2-16.2); Lymphocytes # (auto) 1.6 10 ^3/uL (0.4-5.4); Lymphocytes % (auto) 23.5 % (10.0-50.0); Mean Corpuscular Hgb Conc. 34.6 g/dL (32.0-36.0); Mean Corpuscular Volume 86.5 fL (80.0-100.0); Monocytes # (auto) 0.5 10 ^3/uL (0-1.3); Monocytes % (auto) 8.2 % (0.0-12.0); Neutrophils # (auto) 4.4 10 ^3/uL (1.6-8.6); Neutrophils % (auto) 66.6 % (37.0-80.0); Nucleated Red Blood Cells % 0.1 %; Red Blood Cells 3.43 10^6/uL (4.0-5.20); White Blood Cell 6.6 10^3/uL (4.4-10.8)
[2023-03-20 15:05] LABS: Albumin 3.4 g/dL (3.4-5.0); Potassium 4.1 mmol/L (3.5-5.1)
[2023-03-20 15:08] LABS: BUN/Creatinine Ratio 36.8 (10.0-20.0); Bilirubin, Total 0.4 mg/dL (0.2-1.0)
[2023-03-20] MEDS ORDERED: MORPHINE SULFATE INJ 2 MG/ml SYRG IV PRN (15:45)
[2023-03-20] MEDS ORDERED: POTASSIUM CHL 20 Meq TABLET PO SCH (15:45)
[2023-03-20] MEDS ORDERED: NITROGLYCERIN 0.4 MG SL TAB SL PRN (15:45)
[2023-03-20] MEDS ORDERED: ENOXAPARIN SOD 40 MG/0.4 ML SYRINGE SC SCH (15:45)
[2023-03-20] MEDS ORDERED: ACETAMINOPHEN 325 MG TAB PO PRN (15:45)
[2023-03-20] MEDS ORDERED: SODIUM CHLORIDE 0.9% 1,000 ML IV ONE (16:00)
[2023-03-20 16:29] LABS: Alcohol, Urine < 3.0 mg/dL (0-10); Amphetamine Screen, Urine NEGATIVE (NEGATIVE); Barbiturate Scree,Urine NEGATIVE (NEGATIVE); Benzodiazephine Screen, Urine NEGATIVE (NEGATIVE); Cannabinoid Screen, Urine NEGATIVE (NEGATIVE); Cocaine Screen, Urine NEGATIVE (NEGATIVE); Opiate Scree,Urine NEGATIVE (NEGATIVE); Phencyclidine Screen, Urine NEGATIVE (NEGATIVE)
[2023-03-20] MEDS: CLINDAMYCIN HCL 150 MG CAP PO SCH ×2 (16:42→22:28)
[2023-03-20] MEDS: cefTRIAXone 1GM/50ML D5W 50 ML IV SCH (16:42)
[2023-03-20] MEDS: ENOXAPARIN SOD 40 MG/0.4 ML SYRINGE SC SCH (16:57)
[2023-03-20] MEDS: FUROSEMIDE 40 MG/4 ML VIAL IV SCH (17:23)
[2023-03-20] MEDS: GABAPENTIN 100 MG CAP PO SCH (22:29)
[2023-03-20] MEDS: carBAMazepine 200 MG TAB PO SCH (22:29)
[2023-03-20] MEDS: HYDROcodone-ACET 5/325MG TAB PO PRN (22:35)
[2023-03-21] MEDS: MORPHINE SULFATE INJ 2 MG/ml SYRG IV PRN ×2 (01:21→21:07)
[2023-03-21 05:15] LABS: Basophils # (auto) 0 10 ^3/uL (0-0.2); Basophils % (auto) 0.7 % (0.0-2.0); Eosinophils # (auto) 0.1 10 ^3/uL (0-0.8); Eosinophils % (auto) 2.1 % (0.0-7.0); Hematocrit 27.1 % (36.0-46.0); Hemoglobin 9.3 g/dL (12.2-16.2); Lymphocytes # (auto) 1.7 10 ^3/uL (0.4-5.4); Lymphocytes % (auto) 29.7 % (10.0-50.0); Mean Corpuscular Hemoglobin 29.6 pg (28.0-32.0); Mean Corpuscular Hgb Conc. 34.2 g/dL (32.0-36.0); Mean Corpuscular Volume 86.3 fL (80.0-100.0); Monocytes # (auto) 0.6 10 ^3/uL (0-1.3); Monocytes % (auto) 9.9 % (0.0-12.0); Neutrophils # (auto) 3.3 10 ^3/uL (1.6-8.6); Neutrophils % (auto) 57.6 % (37.0-80.0); Red Blood Cells 3.14 10^6/uL (4.0-5.20); Red Cell Distribution Width 13.9 % (11.8-14.3); White Blood Cell 5.7 10^3/uL (4.4-10.8)
[2023-03-21 05:31] LABS: Potassium 3.6 mmol/L (3.5-5.1)
[2023-03-21] MEDS: carBAMazepine 200 MG TAB PO SCH ×3 (05:37→22:29)
[2023-03-21] MEDS: CLINDAMYCIN HCL 150 MG CAP PO SCH ×3 (05:37→22:29)
[2023-03-21] MEDS: GABAPENTIN 100 MG CAP PO SCH ×3 (05:37→22:29)
[2023-03-21 05:38] LABS: Albumin 2.8 g/dL (3.4-5.0); BUN/Creatinine Ratio 39.2 (10.0-20.0); Bilirubin, Total 0.3 mg/dL (0.2-1.0); Calcium 8.8 mg/dL (8.5-10.1); Total Protein 6.3 g/dL (6.4-8.2)
[2023-03-21] MEDS: FUROSEMIDE 40 MG/4 ML VIAL IV SCH ×2 (05:40→18:32)
[2023-03-21] MEDS: cefTRIAXone 1GM/50ML D5W 50 ML IV SCH (09:11)
[2023-03-21] MEDS ORDERED: POTASSIUM CHL 10 Meq TABLET PO SCH (10:00)
[2023-03-21] MEDS ORDERED: MAGNESIUM OXIDE PO SCH (10:00)
[2023-03-21] MEDS: PANTOPRAZOLE 40 MG/10 ML VIAL INJ IV SCH (10:59)
[2023-03-21] MEDS: MULTIPLE VITAMINS W/ MINERALS TAB PO SCH (10:59)
[2023-03-21] MEDS: ENOXAPARIN SOD 40 MG/0.4 ML SYRINGE SC SCH (10:59)
[2023-03-21] MEDS: MAGNESIUM OXIDE 400 MG TAB PO SCH (11:03)
[2023-03-21] MEDS: THIAMINE HCL 100 MG TAB GT SCH (11:03)
[2023-03-21] MEDS: FOLIC ACID 1 MG TAB PO SCH (11:05)
[2023-03-21] MEDS: LOSARTAN POTASSIUM 50 MG TAB PO SCH (11:06)
[2023-03-21] MEDS: ASPirin-EC 81 mg tab PO SCH (11:17)
[2023-03-22 00:56] VITALS: BP 104/48
[2023-03-22] MEDS: MORPHINE SULFATE INJ 2 MG/ml SYRG IV PRN ×2 (03:33→20:44)
[2023-03-22 05:00] VITALS: BP 101/37
[2023-03-22 06:20] LABS: Basophils # (auto) 0 10 ^3/uL (0-0.2); Basophils % (auto) 0.4 % (0.0-2.0); Eosinophils # (auto) 0.1 10 ^3/uL (0-0.8); Eosinophils % (auto) 2.5 % (0.0-7.0); Hematocrit 29.2 % (36.0-46.0); Lymphocytes # (auto) 1.9 10 ^3/uL (0.4-5.4); Lymphocytes % (auto) 35.6 % (10.0-50.0); Mean Corpuscular Hemoglobin 30.3 pg (28.0-32.0); Mean Corpuscular Hgb Conc. 34.4 g/dL (32.0-36.0); Mean Corpuscular Volume 87.9 fL (80.0-100.0); Monocytes # (auto) 0.5 10 ^3/uL (0-1.3); Neutrophils # (auto) 2.8 10 ^3/uL (1.6-8.6); Neutrophils % (auto) 52.5 % (37.0-80.0); Nucleated Red Blood Cells % 0.1 %; Red Blood Cells 3.32 10^6/uL (4.0-5.20); White Blood Cell 5.3 10^3/uL (4.4-10.8)
[2023-03-22] MEDS: GABAPENTIN 100 MG CAP PO SCH ×3 (06:36→22:15)
[2023-03-22] MEDS: CLINDAMYCIN HCL 150 MG CAP PO SCH ×3 (06:36→22:19)
[2023-03-22] MEDS: FUROSEMIDE 40 MG/4 ML VIAL IV SCH ×2 (06:36→18:00)
[2023-03-22] MEDS: carBAMazepine 200 MG TAB PO SCH ×3 (06:36→22:15)
[2023-03-22 06:41] LABS: BUN/Creatinine Ratio 28.3 (10.0-20.0); Potassium 3.7 mmol/L (3.5-5.1)
[2023-03-22 06:42] LABS: Calcium 9.3 mg/dL (8.5-10.1)
[2023-03-22 08:00] VITALS: BP 98/61
[2023-03-22 09:00] VITALS: BP 98/61
[2023-03-22] MEDS: cefTRIAXone 1GM/50ML D5W 50 ML IV SCH (09:35)
[2023-03-22] MEDS: PANTOPRAZOLE 40 MG/10 ML VIAL INJ IV SCH (09:36)
[2023-03-22] MEDS: ENOXAPARIN SOD 40 MG/0.4 ML SYRINGE SC SCH (09:36)
[2023-03-22] MEDS: ASPirin-EC 81 mg tab PO SCH (09:37)
[2023-03-22] MEDS: MULTIPLE VITAMINS W/ MINERALS TAB PO SCH (09:37)
[2023-03-22] MEDS: THIAMINE HCL 100 MG TAB GT SCH (09:38)
[2023-03-22] MEDS: FOLIC ACID 1 MG TAB PO SCH (09:39)
[2023-03-22] MEDS: MAGNESIUM OXIDE 400 MG TAB PO SCH (09:39)
[2023-03-22] MEDS: LOSARTAN POTASSIUM 50 MG TAB PO SCH (09:46)
[2023-03-22 13:00] VITALS: BP 109/42
[2023-03-22 22:00] VITALS: BP 125/62
[2023-03-22] MEDS: HYDROcodone-ACET 5/325MG TAB PO PRN (22:41)
[2023-03-23] MEDS: MORPHINE SULFATE INJ 2 MG/ml SYRG IV PRN ×2 (02:33→21:16)
[2023-03-23 05:00] VITALS: BP 108/45
[2023-03-23] MEDS: CLINDAMYCIN HCL 150 MG CAP PO SCH ×3 (06:00→21:15)
[2023-03-23] MEDS: FUROSEMIDE 40 MG/4 ML VIAL IV SCH ×2 (06:00→17:53)
[2023-03-23 06:04] LABS: Basophils # (auto) 0 10 ^3/uL (0-0.2); Basophils % (auto) 0.3 % (0.0-2.0); Eosinophils # (auto) 0.1 10 ^3/uL (0-0.8); Eosinophils % (auto) 1.3 % (0.0-7.0); Hematocrit 28.8 % (36.0-46.0); Hemoglobin 9.9 g/dL (12.2-16.2); Lymphocytes # (auto) 1.7 10 ^3/uL (0.4-5.4); Lymphocytes % (auto) 19.4 % (10.0-50.0); Mean Corpuscular Hemoglobin 29.8 pg (28.0-32.0); Mean Corpuscular Hgb Conc. 34.4 g/dL (32.0-36.0); Mean Corpuscular Volume 86.6 fL (80.0-100.0); Monocytes # (auto) 0.5 10 ^3/uL (0-1.3); Monocytes % (auto) 5.9 % (0.0-12.0); Neutrophils # (auto) 6.4 10 ^3/uL (1.6-8.6); Neutrophils % (auto) 73.1 % (37.0-80.0); Red Blood Cells 3.33 10^6/uL (4.0-5.20); Red Cell Distribution Width 13.8 % (11.8-14.3); White Blood Cell 8.8 10^3/uL (4.4-10.8)
[2023-03-23 06:30] LABS: Potassium 3.5 mmol/L (3.5-5.1)
[2023-03-23] MEDS: carBAMazepine 200 MG TAB PO SCH ×3 (06:31→21:17)
[2023-03-23] MEDS: GABAPENTIN 100 MG CAP PO SCH ×3 (06:31→21:16)
[2023-03-23 06:44] LABS: BUN/Creatinine Ratio 27.6 (10.0-20.0); Calcium 9.2 mg/dL (8.5-10.1)
[2023-03-23 08:00] VITALS: BP 129/78
[2023-03-23 09:00] VITALS: BP 112/66
[2023-03-23] MEDS: MULTIPLE VITAMINS W/ MINERALS TAB PO SCH (09:44)
[2023-03-23] MEDS: THIAMINE HCL 100 MG TAB GT SCH (09:44)
[2023-03-23] MEDS: MAGNESIUM OXIDE 400 MG TAB PO SCH (09:44)
[2023-03-23] MEDS: ASPirin-EC 81 mg tab PO SCH (09:44)
[2023-03-23] MEDS: ENOXAPARIN SOD 40 MG/0.4 ML SYRINGE SC SCH (09:44)
[2023-03-23] MEDS: FOLIC ACID 1 MG TAB PO SCH (09:45)
[2023-03-23] MEDS: LOSARTAN POTASSIUM 50 MG TAB PO SCH (09:46)
[2023-03-23] MEDS: cefTRIAXone 1GM/50ML D5W 50 ML IV SCH (09:46)
[2023-03-23] MEDS ORDERED: FLUoxetine HCL 20 MG CAP PO ONE (11:30)
[2023-03-23 13:00] VITALS: BP 129/78
[2023-03-23 17:00] VITALS: BP 120/75
[2023-03-23 22:00] VITALS: BP 122/45
[2023-03-24] MEDS: MORPHINE SULFATE INJ 2 MG/ml SYRG IV PRN ×3 (01:37→21:46)
[2023-03-24 05:00] VITALS: BP 129/73
[2023-03-24] MEDS: carBAMazepine 200 MG TAB PO SCH ×3 (05:37→21:42)
[2023-03-24] MEDS: GABAPENTIN 100 MG CAP PO SCH ×3 (05:37→21:42)
[2023-03-24] MEDS: CLINDAMYCIN HCL 150 MG CAP PO SCH ×3 (05:37→21:42)
[2023-03-24] MEDS: FUROSEMIDE 40 MG/4 ML VIAL IV SCH ×2 (05:38→17:19)
[2023-03-24 08:00] VITALS: BP 124/46
[2023-03-24 09:00] VITALS: BP 124/46
[2023-03-24] MEDS: FOLIC ACID 1 MG TAB PO SCH (09:11)
[2023-03-24] MEDS: cefTRIAXone 1GM/50ML D5W 50 ML IV SCH (09:11)
[2023-03-24] MEDS: THIAMINE HCL 100 MG TAB GT SCH (09:12)
[2023-03-24] MEDS: MAGNESIUM OXIDE 400 MG TAB PO SCH (09:12)
[2023-03-24] MEDS: LOSARTAN POTASSIUM 50 MG TAB PO SCH (09:12)
[2023-03-24] MEDS: FLUoxetine HCL 20 MG CAP PO SCH (09:12)
[2023-03-24] MEDS: MULTIPLE VITAMINS W/ MINERALS TAB PO SCH (09:12)
[2023-03-24] MEDS: ENOXAPARIN SOD 40 MG/0.4 ML SYRINGE SC SCH (09:13)
[2023-03-24] MEDS: ASPirin-EC 81 mg tab PO SCH (09:13)
[2023-03-24] MEDS ORDERED: ONDANSETRON HCL 4 MG/2 ML VIAL IV PRN (11:30)
[2023-03-24 12:36] VITALS: BP 106/40
[2023-03-24 16:46] VITALS: BP 121/61
[2023-03-24 22:00] VITALS: BP 127/59
[2023-03-24] MEDS: HYDROcodone-ACET 5/325MG TAB PO PRN (23:49)
[2023-03-25 05:00] VITALS: BP 122/149
[2023-03-25] MEDS: carBAMazepine 200 MG TAB PO SCH ×2 (06:08→14:44)
[2023-03-25] MEDS: GABAPENTIN 100 MG CAP PO SCH ×2 (06:08→14:44)
[2023-03-25] MEDS: CLINDAMYCIN HCL 150 MG CAP PO SCH ×2 (06:08→14:43)
[2023-03-25] MEDS: FUROSEMIDE 40 MG/4 ML VIAL IV SCH (06:09)
[2023-03-25 06:16] LABS: BUN/Creatinine Ratio 25.9 (10.0-20.0); Calcium 9.3 mg/dL (8.5-10.1); Potassium 3.2 mmol/L (3.5-5.1)
[2023-03-25 06:32] LABS: Basophils # (auto) 0 10 ^3/uL (0-0.2); Basophils % (auto) 0.4 % (0.0-2.0); Eosinophils # (auto) 0.1 10 ^3/uL (0-0.8); Eosinophils % (auto) 1.8 % (0.0-7.0); Hematocrit 29.5 % (36.0-46.0); Hemoglobin 10.1 g/dL (12.2-16.2); Lymphocytes # (auto) 1.8 10 ^3/uL (0.4-5.4); Lymphocytes % (auto) 33.7 % (10.0-50.0); Mean Corpuscular Hemoglobin 29.8 pg (28.0-32.0); Mean Corpuscular Hgb Conc. 34.3 g/dL (32.0-36.0); Mean Corpuscular Volume 86.8 fL (80.0-100.0); Monocytes # (auto) 0.4 10 ^3/uL (0-1.3); Neutrophils # (auto) 2.9 10 ^3/uL (1.6-8.6); Neutrophils % (auto) 56.1 % (37.0-80.0); Nucleated Red Blood Cells % 0.2 %; Red Cell Distribution Width 13.9 % (11.8-14.3); White Blood Cell 5.3 10^3/uL (4.4-10.8)
[2023-03-25 08:00] VITALS: BP 126/77
[2023-03-25] MEDS: cefTRIAXone 1GM/50ML D5W 50 ML IV SCH (08:51)
[2023-03-25] MEDS: ENOXAPARIN SOD 40 MG/0.4 ML SYRINGE SC SCH (08:51)
[2023-03-25] MEDS: MAGNESIUM OXIDE 400 MG TAB PO SCH (08:52)
[2023-03-25] MEDS: FLUoxetine HCL 20 MG CAP PO SCH (08:52)
[2023-03-25] MEDS: ASPirin-EC 81 mg tab PO SCH (08:52)
[2023-03-25] MEDS: MULTIPLE VITAMINS W/ MINERALS TAB PO SCH (08:53)
[2023-03-25] MEDS: FOLIC ACID 1 MG TAB PO SCH (08:53)
[2023-03-25] MEDS: LOSARTAN POTASSIUM 50 MG TAB PO SCH (08:53)
[2023-03-25] MEDS: THIAMINE HCL 100 MG TAB GT SCH (08:53)
[2023-03-25] MEDS: HYDROcodone-ACET 5/325MG TAB PO PRN ×2 (08:58→15:02)
[2023-03-25 09:00] VITALS: BP 126/77
[2023-03-25] MEDS ORDERED: FURO1TAB33 PO (11:25)
[2023-03-25] MEDS ORDERED: DOXY-286 PO (11:25)
[2023-03-25 12:30] VITALS: BP 126/77
[2023-03-25 13:13] VITALS: BP 105/62
[2023-03-25 16:45] VITALS: BP 125/63
== END 2023-03-25 17:53 | disposition home or self-care (01) | DRG 602 ==
LOC: ER 12:27 → TELE 15:43 → TELE-WESTW 03-21 23:28
PROVIDERS: ADMIT Registered Nurse; ATTEND Internal Medicine Pulmonary Disease
DX: L03.115 Cellulitis of right lower limb (principal); I50.33 Acute on chronic diastolic (congestive) heart failure; I11.0 Hypertensive heart disease with heart failure; E66.01 Morbid (severe) obesity due to excess calories; E86.0 Dehydration; I89.0 Lymphedema, not elsewhere classified; L03.116 Cellulitis of left lower limb; R09.89 Other specified symptoms and signs involving the circulatory and respiratory systems; E11.9 Type 2 diabetes mellitus without complications; Z91.148 Patient's other noncompliance with medication regimen for other reason; Z68.38 Body mass index [BMI] 38.0-38.9, adult; F41.9 Anxiety disorder, unspecified; F32.A Depression, unspecified
CPT/HCPCS: 36415; 71045; 80048; 80053; 80307; 80320; 81001; 83605; 83880; 84300; 84484; 85025; 85379; 87040; 93970; 96365; 96375; C9113; G0378; J0696; J2543

== ENCOUNTER 2023-03-27 17:45 | Emergency (ER) | payer OTHER, MEDICAID ==
[~2023-03-27] VITALS: Ht 154.9 cm; Wt 68.0 kg
[~2023-03-27 17:45] MED LIST changes: +DOXY-286 PO; +FURO1TAB33 PO
[2023-03-27 19:22] LABS: Basophils # (auto) 0 10 ^3/uL (0-0.2); Basophils % (auto) 0.3 % (0.0-2.0); Eosinophils # (auto) 0.1 10 ^3/uL (0-0.8); Eosinophils % (auto) 1.2 % (0.0-7.0); Hematocrit 31.8 % (36.0-46.0); Hemoglobin 10.6 g/dL (12.2-16.2); Lymphocytes # (auto) 1.5 10 ^3/uL (0.4-5.4); Lymphocytes % (auto) 19.3 % (10.0-50.0); Mean Corpuscular Hemoglobin 29.1 pg (28.0-32.0); Mean Corpuscular Hgb Conc. 33.4 g/dL (32.0-36.0); Mean Corpuscular Volume 87.1 fL (80.0-100.0); Monocytes # (auto) 0.6 10 ^3/uL (0-1.3); Monocytes % (auto) 7.8 % (0.0-12.0); Neutrophils # (auto) 5.7 10 ^3/uL (1.6-8.6); Neutrophils % (auto) 71.4 % (37.0-80.0); Red Blood Cells 3.65 10^6/uL (4.0-5.20); Red Cell Distribution Width 14.1 % (11.8-14.3); White Blood Cell 7.9 10^3/uL (4.4-10.8)
[2023-03-27 19:39] LABS: Albumin 3.7 g/dL (3.4-5.0); Calcium 9.9 mg/dL (8.5-10.1); Potassium 4.5 mmol/L (3.5-5.1)
[2023-03-27 19:44] LABS: BUN/Creatinine Ratio 29.8 (10.0-20.0); Bilirubin, Total 0.4 mg/dL (0.2-1.0); Total Protein 7.5 g/dL (6.4-8.2)
[2023-03-27] MEDS ORDERED: LORazepam 0.5 MG TAB PO ONE (20:00)
[2023-03-27] MEDS ORDERED: HYDR1CAP27 PO (21:23)
[2023-03-27 22:00] VITALS: BP 115/76
== END 2023-03-27 22:15 | disposition home or self-care (01) ==
LOC: EDBD 17:45 → ER 17:45 → EDSEX 17:45 → ER 22:13
DX: S00.83XA Contusion of other part of head, initial encounter (principal); F41.9 Anxiety disorder, unspecified; F32.9 Major depressive disorder, single episode, unspecified; I11.0 Hypertensive heart disease with heart failure; I50.9 Heart failure, unspecified; E11.9 Type 2 diabetes mellitus without complications; W18.12XA Fall from or off toilet with subsequent striking against object, initial encounter; Y93.89 Activity, other specified; Y92.89 Other specified places as the place of occurrence of the external cause; Y99.8 Other external cause status
CPT/HCPCS: 36415; 70450; 80053; 85025

== ENCOUNTER → 2023-05-04 | Outpatient (CLI) | payer OTHER ==
[~2023-05-04] MED LIST changes: -ALPR0.5T PO; +BUMETANIDE 1mg/4ml VIAL (0.25mg/ml) ONE; +BUMETANIDE 2.5mg/10ml (0.25 mg/ml) INJ IV ONE; -CARB200T4 PO; -DOXY-286 PO; +DULA1INJ SC; -POTA-211; +POTA-211 PO; +POTASSIUM CHL 20 Meq TABLET PO ONE; +SIMV20TA20 PO; +[UNRECOGNIZED DRUG - CODE]
[2023-05-04 11:42] VITALS: BP 115/40; PULSE 59; RESP 18; O2SAT 96
[2023-05-04 12:15] VITALS: BP 139/58; PULSE 58; RESP 18; O2SAT 98
== END | disposition home or self-care (01) ==
LOC: CHF HDHVI 11:43
PROVIDERS: ATTEND Internal Medicine Cardiovascular Disease
DX: M79.661 Pain in right lower leg (principal); M79.662 Pain in left lower leg; E78.5 Hyperlipidemia, unspecified; F41.9 Anxiety disorder, unspecified; F32.9 Major depressive disorder, single episode, unspecified; I11.0 Hypertensive heart disease with heart failure; I50.43 Acute on chronic combined systolic (congestive) and diastolic (congestive) heart failure; E66.01 Morbid (severe) obesity due to excess calories; E11.9 Type 2 diabetes mellitus without complications; Z68.38 Body mass index [BMI] 38.0-38.9, adult; Z79.899 Other long term (current) drug therapy
CPT/HCPCS: 96374; G0463; J3490

== ENCOUNTER → 2023-05-11 | Outpatient (CLI) | payer OTHER ==
[~2023-05-11] MED LIST changes: -BUMETANIDE 1mg/4ml VIAL (0.25mg/ml) ONE; -BUMETANIDE 2.5mg/10ml (0.25 mg/ml) INJ IV ONE; -POTASSIUM CHL 20 Meq TABLET PO ONE
[2023-05-11 10:10] VITALS: BP 109/46; PULSE 60; RESP 16; O2SAT 98
[2023-05-11 10:25] VITALS: BP 97/49; PULSE 60; RESP 16; O2SAT 98
== END | disposition home or self-care (01) ==
LOC: CHF HDHVI 09:57
PROVIDERS: ATTEND Internal Medicine Cardiovascular Disease
DX: Z79.899 Other long term (current) drug therapy (principal)
CPT/HCPCS: G0463

== ENCOUNTER → 2023-06-08 | Outpatient (CLI) | payer OTHER ==
[~2023-06-08] VITALS: Ht 165.1 cm; Wt 99.8 kg
[~2023-06-08] MED LIST changes: +ADENOSINE 84 MG in GIVE UN-DILUTED 0 ML IV ONE; +ADENOSINE 90 MG/30 ML INJ IV ONE
== END | disposition home or self-care (01) ==
LOC: Rad HDHVI 09:56
PROVIDERS: ATTEND Internal Medicine Cardiovascular Disease
DX: I11.0 Hypertensive heart disease with heart failure (principal); I50.23 Acute on chronic systolic (congestive) heart failure; R00.2 Palpitations; E11.21 Type 2 diabetes mellitus with diabetic nephropathy; E78.00 Pure hypercholesterolemia, unspecified
CPT/HCPCS: 78452; 93005; 96374; 96375; A9500; J0153

== ENCOUNTER 2023-09-22 00:26 | Emergency (ER) | payer OTHER, MEDICAID ==
[~2023-09-22] VITALS: Ht 162.6 cm; Wt 90.0 kg
[~2023-09-22 00:26] MED LIST changes: -ADENOSINE 84 MG in GIVE UN-DILUTED 0 ML IV ONE; -ADENOSINE 90 MG/30 ML INJ IV ONE
[2023-09-22 01:20] VITALS: PULSE 79; RESP 10; O2SAT 94
[2023-09-22 01:28] LABS: Basophils # (auto) 0 10 ^3/uL (0-0.2); Basophils % (auto) 0.2 % (0.0-2.0); Eosinophils # (auto) 0.1 10 ^3/uL (0-0.8); Eosinophils % (auto) 0.6 % (0.0-7.0); Hematocrit 31.3 % (36.0-46.0); Hemoglobin 10.4 g/dL (12.2-16.2); Lymphocytes # (auto) 0.8 10 ^3/uL (0.4-5.4); Lymphocytes % (auto) 8.5 % (10.0-50.0); Mean Corpuscular Hgb Conc. 33.3 g/dL (32.0-36.0); Mean Corpuscular Volume 90.1 fL (80.0-100.0); Monocytes # (auto) 0.7 10 ^3/uL (0-1.3); Monocytes % (auto) 6.7 % (0.0-12.0); Neutrophils # (auto) 8.4 10 ^3/uL (1.6-8.6); Red Blood Cells 3.47 10^6/uL (4.0-5.20); Red Cell Distribution Width 13.6 % (11.8-14.3)
[2023-09-22 01:41] LABS: Alanine Aminotransferase 16 U/L (7-40); Albumin 4.2 g/dL (3.2-4.8); Alkaline Phosphatase 56 U/L (46-116); Anion Gap 12 (5-15); Aspartate Aminotransferase 25 U/L (13-40); BUN/Creatinine Ratio 17.9 (10.0-20.0); Blood Alcohol < 3.0 mg/dL (<10); Blood Urea Nitrogen 30 mg/dL (9-23); Calcium 9.5 mg/dL (8.5-10.1); Carbon Dioxide 28 mmol/L (20-30); Chloride 104 mmol/L (98-107); Glucose 140 mg/dL (74-106); Sodium 144 mmol/L (136-145)
[2023-09-22 01:42] LABS: Acetaminophen < 2.0 UG/ML (10.0-20.0); Bilirubin, Total 0.2 mg/dL (0.2-1.0); Total Protein 6.7 g/dL (5.7-8.2)
[2023-09-22 01:52] LABS: Potassium 2.4 mmol/L (3.5-5.1); Salicylate < 3.0 mg/dL (2.8-20.0)
[2023-09-22] MEDS: POTASSIUM CHL 20MEQ/100ML 100 ML IV SCH ×3 (03:10→06:50)
[2023-09-22 03:27] VITALS: PULSE 87; RESP 14; O2SAT 97
[2023-09-22 07:06] VITALS: BP 114/45; PULSE 55; RESP 10; TEMP 97.6; O2SAT 100
== END 2023-09-22 07:25 | disposition short-term general hospital (02) ==
LOC: EDBD 00:26 → ER 00:26
DX: T45.0X1A Poisoning by antiallergic and antiemetic drugs, accidental (unintentional), initial encounter (principal); S06.5XAA Traumatic subdural hemorrhage with loss of consciousness status unknown, initial encounter; R41.82 Altered mental status, unspecified; E87.6 Hypokalemia; R94.31 Abnormal electrocardiogram [ECG] [EKG]; I11.0 Hypertensive heart disease with heart failure; I50.9 Heart failure, unspecified; E11.9 Type 2 diabetes mellitus without complications; E78.5 Hyperlipidemia, unspecified; F41.9 Anxiety disorder, unspecified; X58.XXXA Exposure to other specified factors, initial encounter; Y93.89 Activity, other specified; Y92.89 Other specified places as the place of occurrence of the external cause; Y99.8 Other external cause status
CPT/HCPCS: 36415; 70450; 80053; 80320; 80329; 82962; 85025; 93005; 96365; 96366; 99291; J3480

== ENCOUNTER 2023-12-12 11:50 | Inpatient (IN) | payer OTHER, MEDICAID ==
[~2023-12-12] VITALS: Ht 165.1 cm; Wt 94.2 kg
[2023-12-12 12:32] LABS: Urine Bacteria NONE SEEN /hpf (None Seen); Urine Blood Negative /uL (Negative); Urine Clarity Clear (Clear); Urine Color Colorless (Yellow); Urine Protein, UAD Negative (Negative); Urine Specific Gravity 1.006 (1.001-1.035); Urine Urobilinogen Normal (Negative); Urine WBC 2 /hpf (0 - 5)
[2023-12-12 12:58] LABS: Basophils # (auto) 0 10 ^3/uL (0-0.2); Basophils % (auto) 0.2 % (0.0-2.0); Eosinophils # (auto) 0.1 10 ^3/uL (0-0.8); Hematocrit 31.2 % (36.0-46.0); Hemoglobin 10.6 g/dL (12.2-16.2); Lymphocytes # (auto) 1.4 10 ^3/uL (0.4-5.4); Lymphocytes % (auto) 15.2 % (10.0-50.0); Mean Corpuscular Hemoglobin 29.4 pg (28.0-32.0); Mean Corpuscular Volume 86.5 fL (80.0-100.0); Monocytes # (auto) 0.7 10 ^3/uL (0-1.3); Neutrophils # (auto) 6.8 10 ^3/uL (1.6-8.6); Neutrophils % (auto) 75.6 % (37.0-80.0); Red Blood Cells 3.61 10^6/uL (4.0-5.20); Red Cell Distribution Width 13.2 % (11.8-14.3); White Blood Cell 8.9 10^3/uL (4.4-10.8)
[2023-12-12 13:05] LABS: Chloride 95 mmol/L (98-107); Potassium 2.7 mmol/L (3.5-5.1); Sodium 139 mmol/L (136-145)
[2023-12-12 13:06] LABS: Anion Gap 5 (5-15); Carbon Dioxide 39 mmol/L (20-30)
[2023-12-12 13:11] LABS: BUN/Creatinine Ratio 30.3 (10.0-20.0); Blood Urea Nitrogen 47 mg/dL (9-23); Glucose 81 mg/dL (74-106)
[2023-12-12] MEDS: CLINDAMYCIN 600MG IV 50 ML IV ONE (13:13)
[2023-12-12 13:54] LABS: Erythrocyte Sedimentation Rate 56 mm/hr (0-20)
[2023-12-12 14:24] LABS: INR 0.98 (0.9-1.15); Partial Thromboplastin Time 24.5 SEC (24.5-34.5); Prothrombin Time 10.3 sec (9.3-11.8)
[2023-12-12] MEDS ORDERED: DOCUSATE SOD 100 MG CAP PO PRN (15:45)
[2023-12-12] MEDS ORDERED: MORPHINE SULFATE INJ 2 MG/ml SYRG IV PRN (15:45)
[2023-12-12] MEDS ORDERED: ONDANSETRON HCL 4 MG/2 ML VIAL IV PRN (15:45)
[2023-12-12] MEDS ORDERED: DEXTROSE (50%) 50ML SYRG IV PRN (15:45)
[2023-12-12] MEDS ORDERED: VANCOMYCIN PER PHARMACY 0 MG IV SCH (15:45)
[2023-12-12] MEDS ORDERED: POTASSIUM CHL 20MEQ/100ML 100 ML IV SCH (15:45)
[2023-12-12] MEDS: VANCOMYCIN 1GM/200ML 200 ML IV ONE (16:26)
[2023-12-12] MEDS: ACCU-CHEK COMFORT CURVE STRIP VI SCH (16:29)
[2023-12-12] MEDS: InsuLIN REG 1unit/0.01ml Soln (100units/ml) SC SCH (16:29)
[2023-12-12] MEDS: SODIUM CHLORIDE 0.9% 1,000 ML IV SCH (16:35)
[2023-12-12] MEDS: POTASSIUM CHL 20 Meq TABLET PO ONE (16:37)
[2023-12-12] MEDS: NABUMETONE PO SCH (22:00)
[2023-12-12] MEDS: CEFEPIME 2GM/50ML NS 50 ML IV SCH (22:00)
[2023-12-13] MEDS: GABAPENTIN 100 MG CAP PO SCH (03:45)
[2023-12-13] MEDS: ATORVASTATIN 20 MG TAB PO SCH (03:45)
[2023-12-13] MEDS: carBAMazepine 200 MG TAB PO SCH (03:45)
[2023-12-13] MEDS: busPIRone HCL 10 MG TAB PO SCH (03:45)
[2023-12-13 03:55] VITALS: PULSE 66; RESP 16; O2SAT 97
[2023-12-13 04:26] VITALS: BP 119/47; PULSE 71; RESP 18; TEMP 98; O2SAT 98
[2023-12-13] MEDS ORDERED: BUME2TAB5 PO (04:43)
[2023-12-13] MEDS ORDERED: METO5TAB5 PO (04:44)
[2023-12-13] MEDS ORDERED: OXYB5TAB10 PO (04:44)
[2023-12-13] MEDS ORDERED: FLUO20CA90 PO (04:44)
[2023-12-13] MEDS ORDERED: FOLI-119 PO (04:44)
[2023-12-13] MEDS ORDERED: TERB250T74 PO (04:44)
[2023-12-13 04:45] LABS: Creatinine, Urine 11.52 mg/dL (30.0-125.0)
[2023-12-13] MEDS ORDERED: NAP500T PO (04:45)
[2023-12-13] MEDS ORDERED: [UNRECOGNIZED DRUG - CODE] PO (04:45)
[2023-12-13] MEDS ORDERED: HYDR-4069 PO (04:45)
[2023-12-13 06:43] LABS: Basophils # (auto) 0 10 ^3/uL (0-0.2); Basophils % (auto) 0.3 % (0.0-2.0); Eosinophils # (auto) 0.1 10 ^3/uL (0-0.8); Eosinophils % (auto) 0.9 % (0.0-7.0); Hematocrit 31.6 % (36.0-46.0); Hemoglobin 10.5 g/dL (12.2-16.2); Lymphocytes # (auto) 1.9 10 ^3/uL (0.4-5.4); Lymphocytes % (auto) 17.2 % (10.0-50.0); Mean Corpuscular Hemoglobin 29.5 pg (28.0-32.0); Mean Corpuscular Hgb Conc. 33.1 g/dL (32.0-36.0); Mean Corpuscular Volume 89.1 fL (80.0-100.0); Monocytes # (auto) 1.1 10 ^3/uL (0-1.3); Monocytes % (auto) 9.8 % (0.0-12.0); Neutrophils # (auto) 7.8 10 ^3/uL (1.6-8.6); Neutrophils % (auto) 71.8 % (37.0-80.0); Red Blood Cells 3.54 10^6/uL (4.0-5.20); Red Cell Distribution Width 13.4 % (11.8-14.3); White Blood Cell 10.8 10^3/uL (4.4-10.8)
[2023-12-13 06:50] LABS: Alanine Aminotransferase 13 U/L (7-40); Albumin 4.1 g/dL (3.2-4.8); Alkaline Phosphatase 63 U/L (46-116); Anion Gap 7 (5-15); Aspartate Aminotransferase 19 U/L (13-40); BUN/Creatinine Ratio 23.7 (10.0-20.0); Bilirubin, Total 0.3 mg/dL (0.2-1.0); Calcium 9.9 mg/dL (8.5-10.1); Carbon Dioxide 33 mmol/L (20-30); Chloride 99 mmol/L (98-107); Glucose 94 mg/dL (74-106); Potassium 3.1 mmol/L (3.5-5.1); Sodium 139 mmol/L (136-145)
[2023-12-13 07:00] LABS: Blood Urea Nitrogen 33 mg/dL (9-23)
[2023-12-13 08:00] VITALS: PULSE 69; RESP 18
[2023-12-13 08:40] VITALS: BP 120/60; PULSE 75; RESP 17; TEMP 97.5; O2SAT 97
[2023-12-13] MEDS: ASPirin-EC 81 mg tab PO SCH (09:21)
[2023-12-13] MEDS: MULTIPLE VITAMINS W/ MINERALS TAB PO SCH (09:22)
[2023-12-13] MEDS: THIAMINE HCL 100 MG TAB PO SCH (09:22)
[2023-12-13] MEDS: FLUoxetine HCL 20 MG CAP PO SCH (09:23)
[2023-12-13] MEDS: VANCOMYCIN 1GM/200ML 200 ML IV SCH (09:33)
[2023-12-13] MEDS: Fenofibrate 1 TAB PO SCH (10:00)
[2023-12-13] MEDS ORDERED: [UNRECOGNIZED DRUG - CODE] PO (11:29)
[2023-12-13] MEDS ORDERED: AUG875T PO (11:29)
[2023-12-13 12:53] VITALS: BP 100/46; PULSE 67; RESP 17; TEMP 98.4; O2SAT 95
[2023-12-13 13:21] VITALS: BP 120/60; PULSE 72; RESP 18; TEMP 36.9; O2SAT 97
== END 2023-12-13 16:00 | disposition home or self-care (01) | DRG 605 ==
LOC: ER 11:50 → EDBD 11:50 → TELE 15:50 → TELE-WESTW 12-13 04:06
PROVIDERS: ADMIT Internal Medicine Pulmonary Disease; ATTEND Internal Medicine Pulmonary Disease
DX: S80.11XA Contusion of right lower leg, initial encounter (principal); L03.115 Cellulitis of right lower limb; N17.9 Acute kidney failure, unspecified; I13.0 Hypertensive heart and chronic kidney disease with heart failure and stage 1 through stage 4 chronic kidney disease, or unspecified chronic kidney disease; E78.5 Hyperlipidemia, unspecified; F41.9 Anxiety disorder, unspecified; F32.A Depression, unspecified; I50.9 Heart failure, unspecified; E11.65 Type 2 diabetes mellitus with hyperglycemia; E87.6 Hypokalemia; N18.9 Chronic kidney disease, unspecified; M25.469 Effusion, unspecified knee; M17.10 Unilateral primary osteoarthritis, unspecified knee; E11.22 Type 2 diabetes mellitus with diabetic chronic kidney disease; D63.8 Anemia in other chronic diseases classified elsewhere; W20.8XXA Other cause of strike by thrown, projected or falling object, initial encounter; Z82.0 Family history of epilepsy and other diseases of the nervous system; Z83.3 Family history of diabetes mellitus; Y93.89 Activity, other specified; Y92.89 Other specified places as the place of occurrence of the external cause; Y99.8 Other external cause status
CPT/HCPCS: 36415; 73700; 80048; 80053; 81001; 82570; 82962; 84132; 84300; 85025; 85610; 85652; 85730; 93971; 96365; 96367; G0378; J0692; J3490

== ENCOUNTER 2024-04-21 10:27 | Inpatient (IN) | payer OTHER, MEDICAID ==
[~2024-04-21] VITALS: Ht 167.6 cm; Wt 93.3 kg
[~2024-04-21 10:27] MED LIST changes: +AUG875T PO; +BUME2TAB5 PO; -BUSP7.5T8 PO; +FLUO20CA90 PO; -FLUO40CA PO; +FLUO60TA PO; +FOLI-119 PO; -FOLITAB22 PO; -FURO1TAB33 PO; -GAB100C PO; +HYDR-4069 PO; -HYDR-4072; -LOSA50TA46 PO; +METO5TAB5 PO; -MULTTAB75 PO; +NAP500T PO; +OXYB5TAB14 PO; +TERB250T92 PO; -THIA100T10 GT; -[UNRECOGNIZED DRUG - CODE]; +[UNRECOGNIZED DRUG - CODE] PO; +[UNRECOGNIZED DRUG - CODE] PO
[2024-04-21 11:00] VITALS: PULSE 80; RESP 18; O2SAT 95
[2024-04-21 11:38] LABS: Basophils # (auto) 0 10 ^3/uL (0-0.2); Basophils % (auto) 0.4 % (0.0-2.0); Eosinophils # (auto) 0 10 ^3/uL (0-0.8); Eosinophils % (auto) 0.5 % (0.0-7.0); Hematocrit 35.8 % (36.0-46.0); Hemoglobin 12.2 g/dL (12.2-16.2); Lymphocytes # (auto) 0.9 10 ^3/uL (0.4-5.4); Lymphocytes % (auto) 16.6 % (10.0-50.0); Mean Corpuscular Hemoglobin 33.1 pg (28.0-32.0); Mean Corpuscular Volume 97.6 fL (80.0-100.0); Monocytes # (auto) 0.4 10 ^3/uL (0-1.3); Monocytes % (auto) 6.2 % (0.0-12.0); Neutrophils # (auto) 4.3 10 ^3/uL (1.6-8.6); Neutrophils % (auto) 76.3 % (37.0-80.0); Red Blood Cells 3.67 10^6/uL (4.0-5.20); White Blood Cell 5.7 10^3/uL (4.4-10.8)
[2024-04-21 12:28] LABS: Urine Bacteria None Seen /hpf (None Seen); Urine WBC None Seen /hpf (0 - 5)
[2024-04-21] MEDS: SODIUM CHLORIDE 0.9% 500 ML IVB ONE (12:50)
[2024-04-21 12:54] LABS: Urine Blood Negative /uL (Negative); Urine Clarity Clear (Clear); Urine Color Yellow (Yellow); Urine Hyaline Cast MANY /lpf (0 - 2); Urine Protein, UAD TRACE (Negative); Urine Specific Gravity 1.043 (1.001-1.035); Urine Urobilinogen Normal (Negative); Urine pH 5.5 (5.0-9.0)
[2024-04-21 12:58] LABS: Amphetamine Screen, Urine Neg (NEGATIVE); Barbiturate Scree,Urine Neg (NEGATIVE); Benzodiazephine Screen, Urine Neg (NEGATIVE); Cocaine Screen, Urine Neg (NEGATIVE); Opiate Scree,Urine Pos (NEGATIVE); Phencyclidine Screen, Urine Neg (NEGATIVE)
[2024-04-21 12:59] LABS: Cannabinoid Screen, Urine Neg (NEGATIVE)
[2024-04-21] MEDS ORDERED: ACETAMINOPHEN 325 MG TAB PO PRN (13:45)
[2024-04-21] MEDS ORDERED: DOCUSATE SOD 100 MG CAP PO PRN (13:45)
[2024-04-21 13:51] LABS: Alanine Aminotransferase 110 U/L (7-40); Albumin 3.8 g/dL (3.2-4.8); Alkaline Phosphatase 184 U/L (46-116); Anion Gap 10 (5-15); Aspartate Aminotransferase 90 U/L (13-40); BUN/Creatinine Ratio 21.4 (10.0-20.0); Bilirubin, Total 0.3 mg/dL (0.2-1.0); Blood Alcohol < 3.0 mg/dL (<10); Blood Urea Nitrogen 18 mg/dL (9-23); Calcium 9.6 mg/dL (8.7-10.4); Carbon Dioxide 22 mmol/L (20-30); Chloride 114 mmol/L (98-107); Glucose 94 mg/dL (74-106); Potassium 3.5 mmol/L (3.5-5.1); Sodium 146 mmol/L (136-145)
[2024-04-21] MEDS: SODIUM CHLOR 0.9% PF (SALINE LOCK) 10ML VIAL/SYR IV SCH (14:00)
[2024-04-21] MEDS: LACTATED RINGER'S 1,000 ML IV SCH (15:15)
[2024-04-21] MEDS: HYDROmorphone HCL 2 MG/ML VL/or syr IV PRN (15:26)
[2024-04-21] MEDS: ceFAZolin 1GM/50ML 50 ML IV SCH (15:36)
[2024-04-21] MEDS ORDERED: FERR-7 PO (19:28)
[2024-04-21] MEDS ORDERED: ERGO1CAP23 PO (19:28)
[2024-04-21 20:00] VITALS: PULSE 76; RESP 20; O2SAT 98
[2024-04-21] MEDS: hydrOXYzine 25 MG TAB or CAP PO PRN (20:22)
[2024-04-21] MEDS: ONDANSETRON HCL 4 MG/2 ML VIAL IV PRN (21:30)
[2024-04-21] MEDS: LACTULOSE 20Gm/30ML SOLN PO SCH (22:00)
[2024-04-22] VITALS (9 sets, daily range): BP systolic 106–133; BP diastolic 55–70; PULSE 62–81; RESP 16–20; TEMP 98–98.7; O2SAT 93–96
[2024-04-22 10:47] LABS: Basophils # (auto) 0 10 ^3/uL (0-0.2); Basophils % (auto) 0.3 % (0.0-2.0); Eosinophils # (auto) 0.1 10 ^3/uL (0-0.8); Hematocrit 33.1 % (36.0-46.0); Hemoglobin 11.1 g/dL (12.2-16.2); Lymphocytes # (auto) 1.5 10 ^3/uL (0.4-5.4); Lymphocytes % (auto) 25.7 % (10.0-50.0); Mean Corpuscular Hemoglobin 32.9 pg (28.0-32.0); Mean Corpuscular Hgb Conc. 33.4 g/dL (32.0-36.0); Mean Corpuscular Volume 98.5 fL (80.0-100.0); Monocytes # (auto) 0.6 10 ^3/uL (0-1.3); Monocytes % (auto) 9.6 % (0.0-12.0); Neutrophils # (auto) 3.8 10 ^3/uL (1.6-8.6); Neutrophils % (auto) 62.4 % (37.0-80.0); Red Blood Cells 3.36 10^6/uL (4.0-5.20); Red Cell Distribution Width 17.2 % (11.8-14.3)
[2024-04-22 11:00] LABS: Alanine Aminotransferase 85 U/L (7-40); Albumin 3.3 g/dL (3.2-4.8); Alkaline Phosphatase 186 U/L (46-116); Anion Gap 8 (5-15); Aspartate Aminotransferase 67 U/L (13-40); BUN/Creatinine Ratio 19.4 (10.0-20.0); Bilirubin, Total 0.2 mg/dL (0.2-1.0); Blood Urea Nitrogen 14 mg/dL (9-23); Calcium 8.8 mg/dL (8.7-10.4); Carbon Dioxide 25 mmol/L (20-30); Chloride 110 mmol/L (98-107); Glucose 110 mg/dL (74-106); Potassium 3.3 mmol/L (3.5-5.1); Sodium 143 mmol/L (136-145); Total Protein 5.3 g/dL (5.7-8.2)
[2024-04-22] MEDS: ATORVASTATIN 20 MG TAB PO ONE (12:03)
[2024-04-22] MEDS: POTASSIUM CHL 20 Meq TABLET PO ONE ×2 (12:43)
[2024-04-22] MEDS: LACTATED RINGER'S 1,000 ML IV SCH (16:00)
[2024-04-22] MEDS: LORazepam 2MG/ML-1ML VIAL IV ONE (18:00)
[2024-04-22] MEDS: HYDROcodone-ACET 5/325MG TAB PO PRN (18:01)
[2024-04-22] MEDS ORDERED: ATORVASTATIN 20 MG TAB PO SCH (22:00)
[2024-04-22] MEDS: carBAMazepine 200 MG TAB PO SCH (23:22)
[2024-04-23] VITALS (7 sets, daily range): BP systolic 120–138; BP diastolic 58–87; PULSE 59–82; RESP 16–18; TEMP 36.8; O2SAT 95–98
[2024-04-23 07:04] LABS: Basophils # (auto) 0 10 ^3/uL (0-0.2); Basophils % (auto) 0.2 % (0.0-2.0); Eosinophils # (auto) 0.1 10 ^3/uL (0-0.8); Eosinophils % (auto) 1.4 % (0.0-7.0); Hematocrit 38.2 % (36.0-46.0); Hemoglobin 12.4 g/dL (12.2-16.2); Lymphocytes % (auto) 26.3 % (10.0-50.0); Mean Corpuscular Hemoglobin 32.2 pg (28.0-32.0); Mean Corpuscular Hgb Conc. 32.4 g/dL (32.0-36.0); Mean Corpuscular Volume 99.4 fL (80.0-100.0); Monocytes # (auto) 0.6 10 ^3/uL (0-1.3); Monocytes % (auto) 7.5 % (0.0-12.0); Neutrophils % (auto) 64.6 % (37.0-80.0); Nucleated Red Blood Cells % 0.1 %; Red Blood Cells 3.84 10^6/uL (4.0-5.20); Red Cell Distribution Width 17.6 % (11.8-14.3); White Blood Cell 7.8 10^3/uL (4.4-10.8)
[2024-04-23 07:17] LABS: Alanine Aminotransferase 63 U/L (7-40); Albumin 3.4 g/dL (3.2-4.8); Alkaline Phosphatase 175 U/L (46-116); Anion Gap 11 (5-15); Aspartate Aminotransferase 34 U/L (13-40); BUN/Creatinine Ratio 22.8 (10.0-20.0); Bilirubin, Total 0.2 mg/dL (0.2-1.0); Blood Urea Nitrogen 13 mg/dL (9-23); Calcium 9.3 mg/dL (8.7-10.4); Carbon Dioxide 24 mmol/L (20-30); Chloride 107 mmol/L (98-107); Glucose 90 mg/dL (74-106); Potassium 4.1 mmol/L (3.5-5.1); Sodium 142 mmol/L (136-145); Total Protein 5.4 g/dL (5.7-8.2)
[2024-04-23 08:06] LABS: RPR Non Reactive (Non Reactive)
[2024-04-23] MEDS ORDERED: LACT10SO3 PO (15:26)
[2024-04-24 09:11] LABS: Hepatitis B Surface Antigen Negative (Negative)
[2024-04-24 09:33] LABS: Hepatitis C Antibody Negative (Negative)
== END 2024-04-23 18:00 | disposition home health service (06) | DRG 642 ==
LOC: EDBD 10:27 → ER 10:27 → TELE 13:36 → TELE-WESTW 04-22 04:59 → WEST WING 04-23 00:07
PROVIDERS: ADMIT Internal Medicine; ATTEND Emergency Medicine
DX: E72.20 Disorder of urea cycle metabolism, unspecified (principal); G93.41 Metabolic encephalopathy; L97.919 Non-pressure chronic ulcer of unspecified part of right lower leg with unspecified severity; E78.5 Hyperlipidemia, unspecified; K76.0 Fatty (change of) liver, not elsewhere classified; F41.9 Anxiety disorder, unspecified; F32.A Depression, unspecified; R74.01 Elevation of levels of liver transaminase levels; E11.622 Type 2 diabetes mellitus with other skin ulcer; R16.0 Hepatomegaly, not elsewhere classified; Z82.0 Family history of epilepsy and other diseases of the nervous system
CPT/HCPCS: 36415; 70450; 73600; 74181; 76700; 80053; 80156; 80307; 80320; 80329; 81001; 82140; 82306; 82607; 83036; 83880; 84443; 85025; 86592; 86803; 87205; 87340; 93005; 96360; G0378; J2405

== ENCOUNTER 2024-04-28 11:07 | Inpatient (IN) | payer OTHER, MEDICAID ==
[~2024-04-28] VITALS: Ht 165.1 cm; Wt 97.5 kg
[~2024-04-28 11:07] MED LIST changes: -AUG875T PO; +ERGO1CAP23 PO; -FENO160T PO; +FERR-7 PO; +LACT10SO3 PO; -METO5TAB5 PO; -TERB250T92 PO; -[UNRECOGNIZED DRUG - CODE] PO
[2024-04-28 12:23] LABS: Chloride 104 mmol/L (98-107); Sodium 140 mmol/L (136-145)
[2024-04-28 12:24] LABS: Anion Gap 5 (5-15); Calcium 9.4 mg/dL (8.7-10.4); Carbon Dioxide 31 mmol/L (20-30)
[2024-04-28 12:29] LABS: BUN/Creatinine Ratio 20.5 (10.0-20.0); Blood Urea Nitrogen 17 mg/dL (9-23); Glucose 101 mg/dL (74-106)
[2024-04-28 12:46] LABS: Erythrocyte Sedimentation Rate 21 mm/hr (0-20)
[2024-04-28 13:09] LABS: Basophils # (auto) 0 10 ^3/uL (0-0.2); Basophils % (auto) 0.3 % (0.0-2.0); Eosinophils # (auto) 0.1 10 ^3/uL (0-0.8); Hematocrit 34.5 % (36.0-46.0); Hemoglobin 11.7 g/dL (12.2-16.2); Lymphocytes # (auto) 1.8 10 ^3/uL (0.4-5.4); Lymphocytes % (auto) 21.3 % (10.0-50.0); Mean Corpuscular Hemoglobin 32.7 pg (28.0-32.0); Mean Corpuscular Volume 96.4 fL (80.0-100.0); Monocytes # (auto) 0.9 10 ^3/uL (0-1.3); Monocytes % (auto) 10.3 % (0.0-12.0); Neutrophils # (auto) 5.5 10 ^3/uL (1.6-8.6); Neutrophils % (auto) 67.1 % (37.0-80.0); Red Blood Cells 3.58 10^6/uL (4.0-5.20); White Blood Cell 8.2 10^3/uL (4.4-10.8)
[2024-04-28] MEDS ORDERED: NITROGLYCERIN 0.4 MG SL TAB SL PRN (14:00)
[2024-04-28] MEDS ORDERED: DOCUSATE SOD 100 MG CAP PO PRN (14:00)
[2024-04-28] MEDS ORDERED: ONDANSETRON HCL 4 MG/2 ML VIAL IV PRN (14:00)
[2024-04-28] MEDS: CLINDAMYCIN 600MG IV 50 ML IV ONE (14:59)
[2024-04-28 15:00] VITALS: PULSE 94; RESP 15; O2SAT 95
[2024-04-28] MEDS: CLINDAMYCIN 300MG IV 50 ML IV ONE (15:06)
[2024-04-28] MEDS: FUROSEMIDE 20 MG/2 ML VIAL IV ONE (15:06)
[2024-04-28 17:00] VITALS: BP 133/78; PULSE 84; RESP 16; TEMP 97.8; O2SAT 94
[2024-04-28 17:45] VITALS: RESP 18; O2SAT 98
[2024-04-28] MEDS: FUROSEMIDE 20 MG/2 ML VIAL IV SCH (18:00)
[2024-04-28 18:49] LABS: Urine Bacteria FEW /hpf (None Seen); Urine Blood Negative /uL (Negative); Urine Protein, UAD Negative (Negative); Urine Specific Gravity 1.007 (1.001-1.035); Urine Urobilinogen Normal (Negative); Urine WBC 53 /hpf (0 - 5)
[2024-04-28 19:31] LABS: Urine Clarity CLEAR (Clear); Urine Color Straw (Yellow)
[2024-04-28 21:00] VITALS: BP 129/67; PULSE 79; RESP 16; TEMP 98.2; O2SAT 98
[2024-04-28] MEDS: MORPHINE SULFATE INJ 2 MG/ml SYRG IV PRN (21:48)
[2024-04-28] MEDS: CLINDAMYCIN 300MG IV 50 ML IV SCH (21:54)
[2024-04-29] VITALS (9 sets, daily range): BP systolic 105–119; BP diastolic 53–76; PULSE 66–83; RESP 16–18; TEMP 97.3–99.4; O2SAT 94–96
[2024-04-29] MEDS: carBAMazepine 200 MG TAB PO SCH (06:10)
[2024-04-29 06:53] LABS: Alanine Aminotransferase 26 U/L (7-40); Alkaline Phosphatase 112 U/L (46-116); Anion Gap 6 (5-15); BUN/Creatinine Ratio 21.5 (10.0-20.0); Blood Urea Nitrogen 17 mg/dL (9-23); Calcium 9.5 mg/dL (8.7-10.4); Carbon Dioxide 33 mmol/L (20-30); Chloride 102 mmol/L (98-107); Glucose 81 mg/dL (74-106); Potassium 3.7 mmol/L (3.5-5.1); Sodium 141 mmol/L (136-145)
[2024-04-29 06:54] LABS: Albumin 3.9 g/dL (3.2-4.8); Aspartate Aminotransferase 15 U/L (13-40); Bilirubin, Total 0.2 mg/dL (0.2-1.0); Total Protein 6.1 g/dL (5.7-8.2)
[2024-04-29 06:58] LABS: Basophils # (auto) 0 10 ^3/uL (0-0.2); Basophils % (auto) 0.2 % (0.0-2.0); Eosinophils # (auto) 0.1 10 ^3/uL (0-0.8); Eosinophils % (auto) 1.3 % (0.0-7.0); Hematocrit 33.1 % (36.0-46.0); Hemoglobin 11.3 g/dL (12.2-16.2); Lymphocytes # (auto) 1.8 10 ^3/uL (0.4-5.4); Lymphocytes % (auto) 22.5 % (10.0-50.0); Mean Corpuscular Hemoglobin 33.1 pg (28.0-32.0); Mean Corpuscular Hgb Conc. 34.1 g/dL (32.0-36.0); Mean Corpuscular Volume 97.3 fL (80.0-100.0); Monocytes # (auto) 0.8 10 ^3/uL (0-1.3); Neutrophils # (auto) 5.1 10 ^3/uL (1.6-8.6); Nucleated Red Blood Cells % 0.1 %; Red Cell Distribution Width 16.3 % (11.8-14.3); White Blood Cell 7.8 10^3/uL (4.4-10.8)
[2024-04-29] MEDS: ENOXAPARIN SOD 40 MG/0.4 ML SYRINGE SC SCH (09:41)
[2024-04-29] MEDS: ASPirin 81 mg TAB PO SCH (16:32)
[2024-04-29] MEDS: FLUoxetine HCL 20 MG CAP PO SCH (16:32)
[2024-04-29] MEDS: MAGNESIUM SULFATE 1GM/100ML 100 ML IV SCH (16:33)
[2024-04-29] MEDS: ATORVASTATIN 20 MG TAB PO SCH (23:09)
[2024-04-29] MEDS: busPIRone HCL 10 MG TAB PO SCH (23:09)
[2024-04-30] MEDS: HYDROcodone-ACET 5/325MG TAB PO PRN (01:01)
[2024-04-30 05:00] VITALS: BP 113/62; PULSE 59; RESP 17; TEMP 97.6; O2SAT 95
[2024-04-30 06:53] LABS: Basophils # (auto) 0 10 ^3/uL (0-0.2); Basophils % (auto) 0.4 % (0.0-2.0); Eosinophils # (auto) 0.1 10 ^3/uL (0-0.8); Eosinophils % (auto) 2.1 % (0.0-7.0); Hematocrit 31.5 % (36.0-46.0); Hemoglobin 10.4 g/dL (12.2-16.2); Lymphocytes # (auto) 1.7 10 ^3/uL (0.4-5.4); Lymphocytes % (auto) 31.2 % (10.0-50.0); Mean Corpuscular Hemoglobin 32.3 pg (28.0-32.0); Mean Corpuscular Hgb Conc. 33.1 g/dL (32.0-36.0); Mean Corpuscular Volume 97.4 fL (80.0-100.0); Monocytes # (auto) 0.6 10 ^3/uL (0-1.3); Monocytes % (auto) 11.1 % (0.0-12.0); Neutrophils % (auto) 55.2 % (37.0-80.0); Red Blood Cells 3.24 10^6/uL (4.0-5.20); Red Cell Distribution Width 15.6 % (11.8-14.3); White Blood Cell 5.4 10^3/uL (4.4-10.8)
[2024-04-30 07:15] LABS: Alanine Aminotransferase 19 U/L (7-40); Albumin 3.4 g/dL (3.2-4.8); Alkaline Phosphatase 97 U/L (46-116); Anion Gap 7 (5-15); Aspartate Aminotransferase 19 U/L (13-40); BUN/Creatinine Ratio 13.3 (10.0-20.0); Blood Urea Nitrogen 10 mg/dL (9-23); Calcium 9.1 mg/dL (8.7-10.4); Carbon Dioxide 30 mmol/L (20-30); Chloride 102 mmol/L (98-107); Glucose 127 mg/dL (74-106); Potassium 3.7 mmol/L (3.5-5.1); Sodium 139 mmol/L (136-145)
[2024-04-30 07:16] LABS: Bilirubin, Total 0.2 mg/dL (0.2-1.0); Total Protein 5.6 g/dL (5.7-8.2)
[2024-04-30 09:00] VITALS: BP 108/84; PULSE 65; RESP 18; TEMP 98.1; O2SAT 95
[2024-04-30] MEDS ORDERED: GABA-1308 PO (11:21)
[2024-04-30] MEDS ORDERED: ZOFR4T SL (11:21)
[2024-04-30] MEDS ORDERED: LACT10SO60 PO (11:21)
[2024-04-30] MEDS ORDERED: POTA-228 PO (12:48)
[2024-04-30] MEDS ORDERED: BUM1T PO (12:48)
[2024-04-30 13:00] VITALS: BP 125/63; PULSE 60; RESP 16; TEMP 98.1; O2SAT 98
[2024-04-30 17:00] VITALS: BP 118/75; PULSE 66; RESP 17; TEMP 98; O2SAT 95
== END 2024-04-30 18:15 | disposition home health service (06) | DRG 291 ==
LOC: EDUNIT# 11:07 → EDBD 11:07 → ER 11:12 → OVERFLOW 13:52 → WEST WING 17:32
PROVIDERS: ADMIT Internal Medicine; ATTEND Internal Medicine
DX: I11.0 Hypertensive heart disease with heart failure (principal); I50.33 Acute on chronic diastolic (congestive) heart failure; R56.9 Unspecified convulsions; E11.9 Type 2 diabetes mellitus without complications; E78.5 Hyperlipidemia, unspecified; F41.9 Anxiety disorder, unspecified; F32.A Depression, unspecified; Z79.4 Long term (current) use of insulin; Z79.899 Other long term (current) drug therapy
CPT/HCPCS: 36415; 71045; 80048; 80053; 81001; 82962; 83735; 83880; 84443; 85025; 85652; 87081; 87205; 93970; 97110; 97116; 97163; 97530; G0378; J3490

== ENCOUNTER 2024-05-03 15:25 | Inpatient (IN) | payer OTHER, MEDICAID ==
[~2024-05-03] VITALS: Ht 165.1 cm; Wt 95.0 kg
[~2024-05-03 15:25] MED LIST changes: +BUM1T PO; -FLUO20CA90 PO; +GABA-1308 PO; -LACT10SO3 PO; +LACT10SO60 PO; +POTA-228 PO; +ZOFR4T SL
[2024-05-03 16:36] LABS: Basophils # (auto) 0 10 ^3/uL (0-0.2); Basophils % (auto) 0.1 % (0.0-2.0); Eosinophils # (auto) 0.1 10 ^3/uL (0-0.8); Eosinophils % (auto) 0.8 % (0.0-7.0); Hematocrit 34.1 % (36.0-46.0); Hemoglobin 11.4 g/dL (12.2-16.2); Lymphocytes # (auto) 1.2 10 ^3/uL (0.4-5.4); Mean Corpuscular Hemoglobin 32.6 pg (28.0-32.0); Mean Corpuscular Hgb Conc. 33.4 g/dL (32.0-36.0); Mean Corpuscular Volume 97.4 fL (80.0-100.0); Neutrophils # (auto) 5.9 10 ^3/uL (1.6-8.6); Neutrophils % (auto) 72.1 % (37.0-80.0); Red Cell Distribution Width 15.5 % (11.8-14.3); White Blood Cell 8.2 10^3/uL (4.4-10.8)
[2024-05-03 16:46] LABS: Chloride 105 mmol/L (98-107); Potassium 3.4 mmol/L (3.5-5.1); Sodium 143 mmol/L (136-145)
[2024-05-03 16:47] LABS: Anion Gap 6 (5-15); Carbon Dioxide 32 mmol/L (20-30)
[2024-05-03 16:52] LABS: BUN/Creatinine Ratio 19.3 (10.0-20.0); Blood Urea Nitrogen 17 mg/dL (9-23); Glucose 88 mg/dL (74-106)
[2024-05-03 17:23] VITALS: PULSE 87; RESP 18; O2SAT 97
[2024-05-03] MEDS: FUROSEMIDE 40 MG/4 ML VIAL IV ONE (18:23)
[2024-05-03] MEDS ORDERED: ONDANSETRON HCL 4 MG/2 ML VIAL IV PRN (20:30)
[2024-05-03] MEDS ORDERED: ACETAMINOPHEN 325 MG TAB PO PRN (20:30)
[2024-05-03] MEDS ORDERED: DOCUSATE SOD 100 MG CAP PO PRN (20:30)
[2024-05-03] MEDS: LACTATED RINGER'S 1,000 ML IV ONE (20:43)
[2024-05-03] MEDS ORDERED: ERGOCALCIFEROL 50,000 UNIT(1.25MG) CAP PO SCH (20:45)
[2024-05-03] MEDS: POTASSIUM CHL 20 Meq TABLET PO ONE (21:11)
[2024-05-03] MEDS: SODIUM CHLOR 0.9% PF (SALINE LOCK) 10ML VIAL/SYR IV SCH (22:18)
[2024-05-03] MEDS: carBAMazepine 200 MG TAB PO SCH (22:18)
[2024-05-03] MEDS: LACTULOSE 20Gm/30ML SOLN PO SCH (22:19)
[2024-05-03] MEDS: GABAPENTIN 100 MG CAP PO SCH (22:19)
[2024-05-03] MEDS: POTASSIUM CHL 10 Meq TABLET PO SCH (22:19)
[2024-05-03] MEDS: busPIRone HCL 10 MG TAB PO SCH (22:22)
[2024-05-04 03:26] VITALS: PULSE 80; RESP 17; O2SAT 93
[2024-05-04 05:00] VITALS: BP 106/49; PULSE 75; RESP 16; TEMP 98.4; O2SAT 94
[2024-05-04 08:59] LABS: Urine Bacteria None Seen /hpf (None Seen)
[2024-05-04 09:00] VITALS: BP 104/69; PULSE 77; RESP 18; TEMP 99; O2SAT 94
[2024-05-04 09:07] LABS: Urine Blood Negative /uL (Negative); Urine Clarity Clear (Clear); Urine Color Light-Yellow (Yellow); Urine Protein, UAD Negative (Negative); Urine Specific Gravity 1.016 (1.001-1.035); Urine Urobilinogen Normal (Negative); Urine WBC 11 /hpf (0 - 5)
[2024-05-04] MEDS: MAGNESIUM OXIDE 400 MG TAB PO SCH (10:57)
[2024-05-04] MEDS: FERROUS SULFATE 325mg EC TAB PO SCH (10:57)
[2024-05-04] MEDS: FOLIC ACID 1 MG TAB PO SCH (10:57)
[2024-05-04] MEDS: ASPirin-EC 81 mg tab PO SCH (10:58)
[2024-05-04] MEDS: BUMETANIDE 1 MG TAB PO SCH (10:59)
[2024-05-04] MEDS: OXYBUTYNIN CHL 5 MG TAB PO SCH (11:09)
[2024-05-04 13:00] VITALS: BP 112/71; PULSE 78; RESP 20; TEMP 96.8; O2SAT 96
[2024-05-04] MEDS ORDERED: VANCOMYCIN PER PHARMACY 0 MG IV SCH (14:15)
[2024-05-04] MEDS: VANCOMYCIN 1.75GM/350ML 350 ML IV ONE (14:57)
[2024-05-04] MEDS: ATORVASTATIN 20 MG TAB PO SCH (15:07)
[2024-05-04 17:00] VITALS: BP 114/72; PULSE 67; RESP 20; TEMP 98.3; O2SAT 94
[2024-05-04 21:00] VITALS: BP 117/74; PULSE 67; RESP 18; TEMP 98; O2SAT 98
[2024-05-04] MEDS: HYDROcodone-ACET 5/325MG TAB PO PRN (21:07)
[2024-05-05 05:00] VITALS: BP 115/63; PULSE 64; RESP 18; TEMP 98.5; O2SAT 96
[2024-05-05] MEDS: POTASSIUM CHL 20 Meq TABLET PO ONE (05:47)
[2024-05-05 07:04] LABS: Basophils # (auto) 0 10 ^3/uL (0-0.2); Basophils % (auto) 0.5 % (0.0-2.0); Eosinophils # (auto) 0.1 10 ^3/uL (0-0.8); Hematocrit 30.4 % (36.0-46.0); Lymphocytes # (auto) 1.7 10 ^3/uL (0.4-5.4); Lymphocytes % (auto) 35.7 % (10.0-50.0); Mean Corpuscular Hemoglobin 32.2 pg (28.0-32.0); Mean Corpuscular Hgb Conc. 32.8 g/dL (32.0-36.0); Mean Corpuscular Volume 98.4 fL (80.0-100.0); Monocytes # (auto) 0.7 10 ^3/uL (0-1.3); Monocytes % (auto) 13.6 % (0.0-12.0); Neutrophils # (auto) 2.3 10 ^3/uL (1.6-8.6); Neutrophils % (auto) 48.2 % (37.0-80.0); Nucleated Red Blood Cells % 0.1 %; Red Blood Cells 3.09 10^6/uL (4.0-5.20); Red Cell Distribution Width 15.3 % (11.8-14.3); White Blood Cell 4.9 10^3/uL (4.4-10.8)
[2024-05-05 07:27] LABS: Alanine Aminotransferase 12 U/L (7-40); Alkaline Phosphatase 81 U/L (46-116); Anion Gap 7 (5-15); BUN/Creatinine Ratio 15.6 (10.0-20.0); Blood Urea Nitrogen 10 mg/dL (9-23); Calcium 9.2 mg/dL (8.7-10.4); Carbon Dioxide 26 mmol/L (20-30); Chloride 107 mmol/L (98-107); Glucose 80 mg/dL (74-106); Potassium 3.9 mmol/L (3.5-5.1); Sodium 140 mmol/L (136-145)
[2024-05-05 07:28] LABS: Albumin 3.4 g/dL (3.2-4.8); Aspartate Aminotransferase 13 U/L (13-40); Bilirubin, Total 0.3 mg/dL (0.2-1.0); Total Protein 5.4 g/dL (5.7-8.2)
[2024-05-05 08:41] VITALS: BP 114/67; PULSE 60; RESP 15; TEMP 98.7; O2SAT 94
[2024-05-05] MEDS: cefTRIAXone 1GM/50ML D5W 50 ML IV SCH (10:45)
[2024-05-05] MEDS: FLUoxetine HCL 20 MG CAP PO SCH (10:47)
[2024-05-05 12:26] VITALS: BP 118/78; PULSE 65; RESP 16; TEMP 98; O2SAT 96
[2024-05-05] MEDS ORDERED: VANCOMYCIN 1GM/200ML 200 ML IV SCH (15:00)
[2024-05-05 17:06] VITALS: BP 109/65; PULSE 66; RESP 15; TEMP 98.2; O2SAT 99
[2024-05-05 21:00] VITALS: BP 135/74; PULSE 69; RESP 18; TEMP 98.2; O2SAT 94
[2024-05-06 01:00] VITALS: BP 105/64; PULSE 63; RESP 16; TEMP 98.3; O2SAT 95
[2024-05-06] MEDS: HYDROmorphone HCL 2 MG/ML VL/or syr IV PRN (03:17)
[2024-05-06 04:59] VITALS: BP 127/57; PULSE 68; RESP 16; TEMP 98.2; O2SAT 93
[2024-05-06 07:22] LABS: Basophils # (auto) 0 10 ^3/uL (0-0.2); Basophils % (auto) 0.6 % (0.0-2.0); Eosinophils # (auto) 0.1 10 ^3/uL (0-0.8); Eosinophils % (auto) 1.8 % (0.0-7.0); Hematocrit 29.8 % (36.0-46.0); Hemoglobin 10.1 g/dL (12.2-16.2); Lymphocytes # (auto) 1.7 10 ^3/uL (0.4-5.4); Lymphocytes % (auto) 32.2 % (10.0-50.0); Mean Corpuscular Hemoglobin 32.9 pg (28.0-32.0); Mean Corpuscular Hgb Conc. 33.9 g/dL (32.0-36.0); Mean Corpuscular Volume 97.2 fL (80.0-100.0); Monocytes # (auto) 0.5 10 ^3/uL (0-1.3); Monocytes % (auto) 10.1 % (0.0-12.0); Neutrophils % (auto) 55.3 % (37.0-80.0); Red Blood Cells 3.07 10^6/uL (4.0-5.20); Red Cell Distribution Width 14.9 % (11.8-14.3); White Blood Cell 5.4 10^3/uL (4.4-10.8)
[2024-05-06 07:35] LABS: Alanine Aminotransferase 15 U/L (7-40); Albumin 3.5 g/dL (3.2-4.8); Alkaline Phosphatase 80 U/L (46-116); Anion Gap 6 (5-15); Aspartate Aminotransferase 14 U/L (13-40); BUN/Creatinine Ratio 18.1 (10.0-20.0); Bilirubin, Total 0.2 mg/dL (0.2-1.0); Blood Urea Nitrogen 13 mg/dL (9-23); Carbon Dioxide 28 mmol/L (20-30); Chloride 108 mmol/L (98-107); Glucose 80 mg/dL (74-106); Sodium 142 mmol/L (136-145); Total Protein 5.7 g/dL (5.7-8.2)
[2024-05-06 09:00] VITALS: BP 103/51; PULSE 92; RESP 20; TEMP 98; O2SAT 96
[2024-05-06 13:00] VITALS: BP 153/56; PULSE 66; RESP 16; TEMP 97.9; O2SAT 97
[2024-05-06 13:01] VITALS: BP 103/61; PULSE 66; RESP 16; TEMP 36.7; O2SAT 97
== END 2024-05-06 15:41 | disposition home or self-care (01) | DRG 565 ==
LOC: EDBD 15:25 → EDUNIT# 15:25 → ER 15:25 → OVERFLOW 20:29 → WEST WING 05-04 03:10
PROVIDERS: ADMIT Internal Medicine; ATTEND Internal Medicine
DX: M25.461 Effusion, right knee (principal); I50.32 Chronic diastolic (congestive) heart failure; L97.919 Non-pressure chronic ulcer of unspecified part of right lower leg with unspecified severity; M17.11 Unilateral primary osteoarthritis, right knee; I11.0 Hypertensive heart disease with heart failure; E78.5 Hyperlipidemia, unspecified; E11.9 Type 2 diabetes mellitus without complications; F41.9 Anxiety disorder, unspecified; D64.9 Anemia, unspecified; E87.6 Hypokalemia; F32.A Depression, unspecified; M06.9 Rheumatoid arthritis, unspecified; E66.9 Obesity, unspecified; Z82.0 Family history of epilepsy and other diseases of the nervous system; Z83.3 Family history of diabetes mellitus; Z68.34 Body mass index [BMI] 34.0-34.9, adult
CPT/HCPCS: 36415; 73562; 73700; 80048; 80053; 81001; 82140; 83880; 84484; 85025; 87205; 96361; 96374; 97110; 97163; 97530; G0378

== ENCOUNTER 2024-05-09 08:57 | Inpatient (IN) | payer OTHER, MEDICAID ==
[~2024-05-09] VITALS: Ht 165.1 cm; Wt 98.0 kg
[2024-05-09 09:44] VITALS: RESP 18; O2SAT 96
[2024-05-09] MEDS: cefTRIAXone 1GM/50ML D5W 50 ML IV ONE (10:06)
[2024-05-09] MEDS: LORazepam 2MG/ML-1ML VIAL IV ONE (10:06)
[2024-05-09 10:28] LABS: Basophils # (auto) 0 10 ^3/uL (0-0.2); Basophils % (auto) 0.5 % (0.0-2.0); Eosinophils # (auto) 0.1 10 ^3/uL (0-0.8); Eosinophils % (auto) 1.4 % (0.0-7.0); Hematocrit 32.8 % (36.0-46.0); Hemoglobin 10.7 g/dL (12.2-16.2); Lymphocytes # (auto) 1.1 10 ^3/uL (0.4-5.4); Lymphocytes % (auto) 15.9 % (10.0-50.0); Mean Corpuscular Hemoglobin 31.8 pg (28.0-32.0); Mean Corpuscular Hgb Conc. 32.6 g/dL (32.0-36.0); Mean Corpuscular Volume 97.5 fL (80.0-100.0); Monocytes # (auto) 0.6 10 ^3/uL (0-1.3); Neutrophils # (auto) 5.3 10 ^3/uL (1.6-8.6); Neutrophils % (auto) 73.2 % (37.0-80.0); Nucleated Red Blood Cells % 0.1 %; Platelet Count (auto) 414 10^3/uL (140-450); Red Blood Cells 3.36 10^6/uL (4.0-5.20); Red Cell Distribution Width 14.8 % (11.8-14.3); White Blood Cell 7.2 10^3/uL (4.4-10.8)
[2024-05-09] MEDS: CLINDAMYCIN 600MG IV 50 ML IV ONE (10:35)
[2024-05-09 10:50] LABS: Chloride 110 mmol/L (98-107); Potassium 4.2 mmol/L (3.5-5.1); Sodium 146 mmol/L (136-145)
[2024-05-09 10:51] LABS: Anion Gap 6 (5-15); Carbon Dioxide 30 mmol/L (20-30)
[2024-05-09 10:56] LABS: BUN/Creatinine Ratio 21.5 (10.0-20.0); Blood Urea Nitrogen 17 mg/dL (9-23); Glucose 99 mg/dL (74-106)
[2024-05-09] MEDS ORDERED: DOCUSATE SOD 100 MG CAP PO PRN (12:30)
[2024-05-09] MEDS ORDERED: ONDANSETRON HCL 4 MG/2 ML VIAL IV PRN (12:30)
[2024-05-09] MEDS ORDERED: NITROGLYCERIN 0.4 MG SL TAB SL PRN (12:30)
[2024-05-09] MEDS ORDERED: SODIUM CHLORIDE 0.9% 1,000 ML IV SCH (12:30)
[2024-05-09] MEDS: ENOXAPARIN SOD 40 MG/0.4 ML SYRINGE SC SCH (12:49)
[2024-05-09] MEDS: carBAMazepine 200 MG TAB PO SCH (14:27)
[2024-05-09] MEDS: GABAPENTIN 100 MG CAP PO SCH (14:27)
[2024-05-09 19:00] VITALS: BP 147/62; PULSE 57; RESP 18; TEMP 98; O2SAT 96
[2024-05-09 20:00] VITALS: BP 147/62; PULSE 57; RESP 18; TEMP 98; O2SAT 96
[2024-05-09 20:08] VITALS: PULSE 57; RESP 18; O2SAT 96
[2024-05-09 21:00] VITALS: BP 127/67; PULSE 65; RESP 19; TEMP 98.4; O2SAT 94
[2024-05-09] MEDS: busPIRone HCL 10 MG TAB PO SCH (23:18)
[2024-05-10] VITALS (8 sets, daily range): BP systolic 111–125; BP diastolic 50–78; PULSE 73–88; RESP 16–20; TEMP 98–98.6; O2SAT 93–97
[2024-05-10 07:40] LABS: Basophils # (auto) 0 10 ^3/uL (0-0.2); Basophils % (auto) 0.8 % (0.0-2.0); Eosinophils # (auto) 0.1 10 ^3/uL (0-0.8); Eosinophils % (auto) 2.1 % (0.0-7.0); Hematocrit 30.1 % (36.0-46.0); Lymphocytes # (auto) 1.8 10 ^3/uL (0.4-5.4); Lymphocytes % (auto) 28.3 % (10.0-50.0); Mean Corpuscular Hemoglobin 32.8 pg (28.0-32.0); Mean Corpuscular Hgb Conc. 33.2 g/dL (32.0-36.0); Monocytes # (auto) 0.5 10 ^3/uL (0-1.3); Monocytes % (auto) 8.1 % (0.0-12.0); Neutrophils # (auto) 3.8 10 ^3/uL (1.6-8.6); Neutrophils % (auto) 60.7 % (37.0-80.0); Nucleated Red Blood Cells % 0.1 %; Platelet Count (auto) 357 10^3/uL (140-450); Red Blood Cells 3.04 10^6/uL (4.0-5.20); Red Cell Distribution Width 15.1 % (11.8-14.3); White Blood Cell 6.3 10^3/uL (4.4-10.8)
[2024-05-10 08:03] LABS: Alanine Aminotransferase 12 U/L (7-40); Albumin 3.5 g/dL (3.2-4.8); Alkaline Phosphatase 80 U/L (46-116); Anion Gap 4 (5-15); Aspartate Aminotransferase 21 U/L (13-40); BUN/Creatinine Ratio 17.6 (10.0-20.0); Blood Urea Nitrogen 12 mg/dL (9-23); Calcium 9.3 mg/dL (8.7-10.4); Carbon Dioxide 27 mmol/L (20-30); Chloride 110 mmol/L (98-107); Glucose 94 mg/dL (74-106); Sodium 141 mmol/L (136-145)
[2024-05-10 08:05] LABS: Bilirubin, Total 0.2 mg/dL (0.2-1.0); Total Protein 5.7 g/dL (5.7-8.2)
[2024-05-10] MEDS: OXYBUTYNIN CHL 5 MG TAB PO SCH (08:49)
[2024-05-10] MEDS: FOLIC ACID 1 MG TAB PO SCH (08:49)
[2024-05-10] MEDS: ASPirin-EC 81 mg tab PO SCH (08:49)
[2024-05-10] MEDS: BUMETANIDE 1 MG TAB PO SCH (08:51)
[2024-05-10 10:37] LABS: Urine Bacteria None Seen /hpf (None Seen)
[2024-05-10 10:50] LABS: Urine Blood Negative /uL (Negative); Urine Clarity Clear (Clear); Urine Color Yellow (Yellow); Urine Protein, UAD 1+ (Negative); Urine Specific Gravity 1.026 (1.001-1.035); Urine Urobilinogen Normal (Negative); Urine WBC 34 /hpf (0 - 5); Urine pH 6.5 (5.0-9.0)
[2024-05-10] MEDS: MORPHINE SULFATE INJ 2 MG/ml SYRG IV PRN (12:03)
[2024-05-10] MEDS ORDERED: CLON0.5T3 PO (12:30)
[2024-05-10] MEDS ORDERED: CEPH500C PO (13:08)
[2024-05-10] MEDS ORDERED: HYDR-4902 PO (14:34)
[2024-05-10] MEDS ORDERED: COLLPOW10 XX (18:43)
[2024-05-10] MEDS: cefTRIAXone 1GM/50ML D5W 50 ML IV ONE (20:45)
[2024-05-10] MEDS: ATORVASTATIN 20 MG TAB PO SCH (21:24)
[2024-05-11 01:00] VITALS: BP 114/70; PULSE 62; RESP 18; TEMP 97.2; O2SAT 98
[2024-05-11] MEDS: MELATONIN 5 MG TAB PO ONE (03:08)
[2024-05-11 05:00] VITALS: BP 114/72; PULSE 70; RESP 17; TEMP 97.7; O2SAT 98
[2024-05-11 06:19] LABS: Basophils # (auto) 0 10 ^3/uL (0-0.2); Basophils % (auto) 0.7 % (0.0-2.0); Eosinophils # (auto) 0.1 10 ^3/uL (0-0.8); Eosinophils % (auto) 2.4 % (0.0-7.0); Hematocrit 28.7 % (36.0-46.0); Hemoglobin 9.4 g/dL (12.2-16.2); Lymphocytes # (auto) 1.9 10 ^3/uL (0.4-5.4); Lymphocytes % (auto) 36.6 % (10.0-50.0); Mean Corpuscular Hemoglobin 31.9 pg (28.0-32.0); Mean Corpuscular Hgb Conc. 32.8 g/dL (32.0-36.0); Mean Corpuscular Volume 97.4 fL (80.0-100.0); Monocytes # (auto) 0.5 10 ^3/uL (0-1.3); Monocytes % (auto) 10.3 % (0.0-12.0); Neutrophils # (auto) 2.6 10 ^3/uL (1.6-8.6); Nucleated Red Blood Cells % 0.1 %; Platelet Count (auto) 384 10^3/uL (140-450); Red Blood Cells 2.94 10^6/uL (4.0-5.20); Red Cell Distribution Width 15.1 % (11.8-14.3); White Blood Cell 5.3 10^3/uL (4.4-10.8)
[2024-05-11 06:22] LABS: Chloride 106 mmol/L (98-107); Sodium 140 mmol/L (136-145)
[2024-05-11 06:23] LABS: Anion Gap 5 (5-15); Carbon Dioxide 29 mmol/L (20-30)
[2024-05-11 06:28] LABS: BUN/Creatinine Ratio 19.2 (10.0-20.0); Blood Urea Nitrogen 14 mg/dL (9-23); Glucose 82 mg/dL (74-106)
[2024-05-11 09:00] VITALS: BP 128/68; PULSE 59; RESP 18; TEMP 97.9; O2SAT 94
[2024-05-11] MEDS: cefTRIAXone 1GM/50ML D5W 50 ML IV SCH (09:07)
[2024-05-11] MEDS: ERGOCALCIFEROL 50,000 UNIT(1.25MG) CAP PO SCH (09:08)
[2024-05-11 13:00] VITALS: BP 121/72; PULSE 74; RESP 16; TEMP 98.1; O2SAT 95
[2024-05-11] MEDS ORDERED: LEVO750T40 PO (14:28)
[2024-05-11 16:51] VITALS: BP 117/55
== END 2024-05-11 17:17 | disposition home health service (06) | DRG 603 ==
LOC: ER 08:57 → EDBD 08:57 → TELE 12:29 → TELE-CENTR 19:00 → CENTRAL 05-11 02:57
PROVIDERS: ADMIT Nurse Practitioner Family; ATTEND Nurse Practitioner Family
DX: L03.115 Cellulitis of right lower limb (principal); L97.819 Non-pressure chronic ulcer of other part of right lower leg with unspecified severity; N30.00 Acute cystitis without hematuria; F41.1 Generalized anxiety disorder; I11.0 Hypertensive heart disease with heart failure; I50.9 Heart failure, unspecified; E78.5 Hyperlipidemia, unspecified; D64.9 Anemia, unspecified; F32.A Depression, unspecified; E11.9 Type 2 diabetes mellitus without complications; F41.0 Panic disorder [episodic paroxysmal anxiety]
CPT/HCPCS: 36415; 80048; 80053; 81001; 82140; 85025; 85379; 87081; 87205; 93970; G0378; J3490

== ENCOUNTER → 2024-10-20 | Outpatient (CLI) | payer OTHER, MEDICAID ==
[~2024-10-20] VITALS: Ht 165.1 cm; Wt 99.3 kg
[~2024-10-20] MED LIST changes: +ADENOSINE 83 MG in GIVE UN-DILUTED 0 ML IV ONE; +ADENOSINE 90 MG/30 ML INJ IV ONE; +CEPH500C PO; +CLON0.5T3 PO; +COLLPOW10 XX; +HYDR-4902 PO; +LEVO750T40 PO
== END | disposition home or self-care (01) ==
LOC: Rad HDHVI 10:24
PROVIDERS: ATTEND Internal Medicine Cardiovascular Disease
DX: I13.0 Hypertensive heart and chronic kidney disease with heart failure and stage 1 through stage 4 chronic kidney disease, or unspecified chronic kidney disease (principal); I50.32 Chronic diastolic (congestive) heart failure; N18.9 Chronic kidney disease, unspecified; E11.22 Type 2 diabetes mellitus with diabetic chronic kidney disease; E78.00 Pure hypercholesterolemia, unspecified; E11.21 Type 2 diabetes mellitus with diabetic nephropathy; E66.01 Morbid (severe) obesity due to excess calories; K21.9 Gastro-esophageal reflux disease without esophagitis; F32.A Depression, unspecified; Z79.4 Long term (current) use of insulin; Z72.0 Tobacco use; Z68.34 Body mass index [BMI] 34.0-34.9, adult
CPT/HCPCS: 78452; 93005; 96374; 96375; A9500; J0153

== ENCOUNTER 2024-11-04 09:27 | Inpatient (IN) | payer OTHER, MEDICAID ==
[~2024-11-04] VITALS: Ht 165.1 cm; Wt 81.4 kg
[~2024-11-04 09:27] MED LIST changes: -ADENOSINE 83 MG in GIVE UN-DILUTED 0 ML IV ONE; -ADENOSINE 90 MG/30 ML INJ IV ONE; +BUME1TAB3 PO; +BUSP15TA90 PO; +FLUO40CA PO
--- NOTE | 2024-11-04 09:40 | ECG ---
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
--- NOTE | 2024-11-04 09:50 | ED.PDOC ---
Altered Mental Status HPI Comments 64 year old female ARTEMIO presents to the ED with chief complaint of ALOC. EMS reports patient's wound care nurse found patient to be altered, anxious, and not answering many questions appropriately this morning hen she went to her home, calling 911 as a result. EMS relays patient is A/O x1 to self and patient's bl ood glucose was normal. Patient denies any fall, chest pain, SOB, dizziness, headache, N/V/D, LOC, or fall. Time Seen by MD: 09:39 Primary Care Provider: NONE Reviewed Notes: Nurses Notes, Pulmonologist/Intensivist Notes, Medications, Allergies Allergies: Coded Allergies: No Known Drug Allergy (Verified Allergy, Unknown, 07/03/20) Home Meds Active Scripts Levofloxacin Hemihydrate (LEVOFLOXACIN) 750 Mg Tab, 1 TAB PO DAILY for 7 Days, #7 TAB Prov:CLARICE SMITH RESIDENT 05/11/24 Hydrocodone-Acetaminophen (Hydrocodone Bitartrate/AC 5-325 mg) 1 Tab Tab, 1.5 TAB PO Q8HPRN PRN, #30 TAB Prov:LINK DELGADO MD 05/10/24 Clonazepam (KlonoPIN TABLET) 0.5 Mg Tb, 1 TAB PO TID PRN, #30 TAB Prov:LINK DELGADO MD 05/10/24 Potassium Chloride (Potassium Chloride ER) 10 Meq Tab, 10 MEQ PO BID for 30 Days, #60 TAB 2 Refills Prov:FLORINDA RO MD 04/30/24 Bumetanide (Bumex Tablet) 1 Mg Tab, 2 MG PO DAILY for 30 Days, #60 TAB 2 Refills BLK BX WARNING-CAN LEAD TO PROFOUND DIURESIS WITH FLUID- ELECTROLYTE LOSS Prov:FLORINDA RO MD 04/30/24 Reported Medications Collagenase (Collagenase) Pow, 1 DOSE XX DAILY, POW 05/10/24 Cephalexin Monohydrate (Cephalexin) 500 Mg Cap, 500 MG PO Q6HR, MG 05/10/24 Ondansetron Odt 4MG Tab (ZOFRAN PO) 4 Mg Tb, 1 TAB SL Q12HR PRN for NAUSEA / VOMITING ODT TAB-DISSOLVE IN MOUTH, THEN SWALLOW 04/30/24 Gabapentin (Gabapentin) 100 Mg Cap, 1 CAP PO TID 04/30/24 Lactulose (Constulose) 10 Gm/15 Ml Lia, 10 GM PO BID 04/30/24 Fluoxetine HCl (Fluoxetine Hydrochloride) 60 Mg Tab, 1 TAB PO DAILY 04/28/24 Ergocalciferol (VITAMIN D 21555 UNIT) 50,000 [place], [address] UNIT PO QWEEKLY, CAP 04/21/24 Ferrous Sulfate (Iron) 325 Mg Tab, 325 MG PO DAILY, TAB 04/21/24 Naproxen (NAPROSYN TABLET) 500 Mg Tb, 1 TAB PO BID PRN for PAIN SCALE 1 THRU 6 12/13/23 Hydrocodone-Acetaminophen (Hydrocodone/Acetaminophen 7.5-325 mg) 1 Tab Tab, 1 TAB PO TID PRN for PAIN SCALE 7 THRU 10 12/13/23 Buspirone HCl (Buspirone Hydrochloride) 10 Mg Tab, 1 TAB PO BID noon and bedtime 12/13/23 Folic Acid (Folic Acid) 1 Mg Tab, 1 TAB PO DAILY 12/13/23 Oxybutynin Chloride (Oxybutynin Chloride) 5 Mg Tab, 1 TAB PO DAILY 12/13/23 Bumetanide (Bumetanide) 2 Mg Tab, 1 TAB PO DAILY 12/13/23 Simvastatin (Simvastatin) 20 Mg Tab, 20 MG PO HS for 30 Days 04/15/23 Dulaglutide (Trulicity) 0.75 Mg/0.5 Ml Inj, 0.75 MG SC QWEEKLY 04/15/23 Carbamazepine (TEGretol TABLET) 200 Mg Tb, 1 TAB PO TID 03/01/23 Aspirin (Aspirin Low Dose) 81 Mg Tab, 1 TAB PO DAILYPRN 07/30/21 Baclofen (Baclofen) 20 Mg Tab, 1 TAB PO TID 07/30/21 Nabumetone (Nabumetone) 500 Mg Tab, 1 TAB PO BID 07/30/21 Magnesium Oxide (mg Supplement (Magnesium-Oxide) 400 Mg Tab, 1 TAB PO DAILYPRN 07/30/21 Potassium Chloride (Klor-Con 10) 10 Meq Tab, 10 MEQ PO BID 07/30/21 Information Source: Patient, Emergency Med Personnel Mode of Arrival: EMS Severity: Moderate Timing: Hours Duration: Since onset Prehospital treatment: None Quality: Change in Behavior, Confusion Recent: None History of: None Past Medical History PAST MEDICAL HISTORY: Anemia, Anxiety, Arthritis, CHF, Depression, DM, High Lipids, HTN, Seizures Surgical History: Denies all surgeries 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: Denies all INJECTION MOLDING SUPERVISOR Hx Family History Family History: Reviewed,noncontributory to illness Social History Smoker: Non-Smoker Alcohol: Denies ETOH Use Drugs: Denies Drug Use Lives In: Home Constitutional: denies: chills, diaphoresis, fatigue, fever, malaise, sweats, weakness, others EENTM: denies: blurred vision, double vision, ear bleeding, ear discharge, ear drainage, ear pain, ear ringing, eye pain, eye redness, hearing loss, mouth pain, mouth swelling, nasal discharge, nose bleeding, nose congestion, nose pain, photophobia, tearing, throat pain, throat swelling, voice changes, others Respiratory: denies: cough, hemoptysis, orthopnea, SOB at rest, shortness of breath, SOB with excertion, stridor, wheezing, others Cardiovascular: denies: chest pain, dizzy spells, diaphoresis, Dyspnea on exertion, edema, irregular heart beat, left arm pain, lightheadedness, palpitations, PND, syncope, others Gastrointestinal: denies: abdomen distended, abdominal pain, blood streaked bowels, constipated, diarrhea, dysphagia, difficulty swallowing, hematemesis, melena, nausea, poor appetite, poor fluid intake, rectal bleeding, rectal pain, vomiting, others Genitourinary: denies: abnormal vagina bleeding, burning, dyspareunia, dysuria, flank pain, frequency, hematuria, incontinence, pain, , vagina discharge, urgency, others Neurological: denies: dizziness, fainting, headache, left sided numbness, left sided weakness, numbness, paresthesia, pre-existing deficit, right sided numbness, right sided weakness, seizure, speech problems, tingling, tremors, weakness, others Musculoskeletal: denies: back pain, gout, joint pain, joint swelling, muscle pain, muscle stiffness, neck pain, others Integumetry: denies: bruises, change in color, change in hair/nails, dryness, laceration, lesions, lumps, rash, wounds, others Allergic/Immunocompromised: denies: Difficulty Healing, Frequent Infections, Hives, Itching, others Hematologic/Lymphatic: denies: anemia, blood clots, easy bleeding, easy bruising, swollen glands, others Endocrine: denies: excessive hunger, excessive sweating, excessive thirst, excessive urination, flushing, intolerance to cold, intolerance to heat, unexplained weight gain, unexplained weight loss, others Psychiatric: reports: anxiety; denies: bipolar disorder, depression, hopeless, panic disorder, schizophrenia, sleepless, suicidal, others Unable to Obtain due to: Altered Mental Status All Other Systems: Reviewed and Negative Physical Exam General Appearance: No Apparent Distress, Other (Confused) HEENT: Normal ENT Inspection, PERRL/EOMI Neck: Full Range of Motion, Non-Tender, Normal, Normal Inspection Respiratory: Chest Non-Tender, Lungs Clear, No Accessory Muscle Use, No Respiratory Distress, Normal Breath Sounds Cardiovascular: No Edema, No JVD, No Murmur, No Gallop, Normal Peripheral Pulses, Regular Rate/Rhythm Breast Exam: Deferred Gastrointestinal: No Organomegaly, Non Tender, No Pulsatile Mass, Normal Bowel Sounds, Soft Genitalia: Deferred Pelvic: Deferred Rectal: Deferred Extremities: No calf tenderness, Normal capillary refill, Normal inspection, Normal range of motion, Non-tender, No pedal edema Musculoskeletal : Apperance: Normal Neurologic: Alert, patient observation assistant II-XII nml as Tested, No Motor Deficits, Normal Affect, Normal Mood, No Sensory Deficits Cerebellar Function: Normal Reflexes: Normal Skin: Dry, Normal Color, Warm Lymphatic: No Adenopathy Was a procedure done? Was a procedure done?: No Differential Diagnosis (ALOC) Differential Diagnosis: Dehydration, Hypoglycemia, Encephalopathy, Mass Lesion, Heart Failure, Renal Failure X-Ray, Labs, Meds, VS Vital Signs Date Time Temp Pulse Resp B/P (MAP) Pulse Ox O2 Delivery O2 Flow Rate FiO2 11/04/24 09:45 97.8 67 22 135/84 (101) 97 11/04/24 09:33 65 Lab Test 11/04/24 09:52 11/04/24 09:47 Range/Units White Blood Count 5.0 4.4-10.8 10^3/uL Red Blood Count 4.07 4.0-5.20 10^6/uL Hemoglobin 12.4 12.2-16.2 g/dL Hematocrit 37.4 36.0-46.0 % Mean Corpuscular Volume 91.9 80.0-100.0 fL Mean Corpuscular Hemoglobin 30.4 28.0-32.0 pg Mean Corpuscular Hemoglobin Concent 33.1 32.0-36.0 g/dL Red Cell Distribution Width 14.3 11.8-14.3 % Platelet Count 277 140-450 10^3/uL Mean Platelet Volume 7.8 6.9-10.8 fL Neutrophils (%) (Auto) 74.1 37.0-80.0 % Lymphocytes (%) (Auto) 17.7 10.0-50.0 % Monocytes (%) (Auto) 7.2 0.0-12.0 % Eosinophils (%) (Auto) 0.6 0.0-7.0 % Basophils (%) (Auto) 0.4 0.0-2.0 % Neutrophils # (Auto) 3.7 1.6-8.6 10 ^3/uL Lymphocytes # (Auto) 0.9 0.4-5.4 10 ^3/uL Monocytes # (Auto) 0.4 0-1.3 10 ^3/uL Eosinophils # (Auto) 0 0-0.8 10 ^3/uL Basophils # (Auto) 0 0-0.2 10 ^3/uL Nucleated Red Blood Cells 0.3 % Sodium Level 142 136-145 mmol/L Potassium Level 4.0 3.5-5.1 mmol/L Chloride Level 105 98-107 mmol/L Carbon Dioxide Level 29 20-31 mmol/L Anion Gap 8 5-15 Blood Urea Nitrogen 19 9-23 mg/dL Creatinine 0.85 0.550-1.02 mg/dL Glomerular Filtration Rate Calc 76 >90 mL/min BUN/Creatinine Ratio 22.4 H 10.0-20.0 Serum Glucose 110 H 74-106 mg/dL Calcium Level 9.9 8.7-10.4 mg/dL Ammonia < 10 L 11-32 umol/L Troponin I High Sensitivity < 3 L </=34 ng/L POC Glucose 117 H 70-106 mg/dl CT Head: FINDINGS: CT images are mildly degraded by motion artifact artifact. Redemonstration postsurgical changes related to right frontal temporal craniectomy craniectomy with mesh reconstruction. There is encephalomalacia in the anterior right frontal lobe. 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 There are also stable small chronic infarcts in the left cerebellum. There is no evidence of acute intracranial hemorrhage, mass, mass effect midline shift. There is no hydrocephalus or extra-axial fluid collection. Visualized paranasal sinuses mastoid air cells are clear are clear. IMPRESSION: 1. No acute intracranial process. 2 postsurgical and chronic schema changes as described above changes as described above. Images Reviewed?: Images reviewed and evaluated by me Time of 1ST Reevaluation: 10:39 Reevaluation 1ST: Unchanged Patient Education/Counseling: Diagnosis, Treatment Family Education/Counseling: No Family Present Additional Information I reviewed the following notes from patient's past medical encounters: 05/09/24 for anxiety The following tests were ordered, and results were reviewed by me: I reviewed and agreed with the following test results read by other providers: Additional Information was gathered from interviewing the following independent historians: EMS I discussed treatment and results with medical personnel. Departure 1 Departure Time of Disposition: 14:25 (Patient with worsening altered mental status. Workup so far is benign. We will admit patient for further workup and expert consultation) Impression: Primary Impression: Metabolic encephalopathy Additional Impression: Generalized weakness Disposition: ADMITTED INPATIENT Admit to: Med Surg Condition: Serious Critical Care Note Critical Care Time?: Yes Critical care comment: Altered mental status Authorized and Performed by: Lelo Don MD Total critical care time: Approximately 39 minutes Due to a high probability of clinically significant, life threatening deterioration, the patient required my highest level of preparedness to intervene emergently and I personally spent this critical care time directly and personally managing the patient. This critical care time included obtaining a history; examining the patient; pulse oximetry; ordering and review of studies; arranging urgent treatment with development of a management plan; evaluation of patient's response to treatment; frequent reassessment; and, discussions with other providers. This critical care time was performed to assess and manage the high probability of imminent, life-threatening deterioration that could result in multi-organ failure. It was exclusive of separately billable procedures and treating other patients and teaching time. Please see my other sections and the rest of the note for further information on patient assessment and treatment. Stability Stability form required: No Heart Score Heart Score: Heart Score Response (Comments) Value History N/A 0 EKG N/A 0 Age N/A 0 Risk Factors N/A 0 Troponin N/A 0 Total 0 I personally scribed for LELO DON MD ([email or web address]) on 11/04/24 at 09:49. Electronically submitted by Rex Reese ([email or web address]). I personally scribed for LELO DON MD ([email or web address]) on 11/04/24 at 10:52. Electronically submitted by Rex Reese ([email or web address]). LELO DON MD Nov 04, 2024 09:49
--- NOTE | 2024-11-04 10:29 | DVH ---
EXAM: CT HEAD WITHOUT CONTRAST HISTORY: ams COMPARISON: 04/21/24 TECHNIQUE: Axial images of the head were obtained and reformatted in coronal and sagittal planes. All CT scans at this medical facility are performed using dose modulation techniques as appropriate t o a performed exam including the following: Automated exposure control was utilized; adjustment of th e MA and/or KV according to patient size; and use of iterative reconstruction technique. CT Dose: CTDI volume is 57 57 mGy. Dose-length product is 1134 mGy*cm FINDINGS: CT images are mildly degraded by motion artifact artifact. Redemonstration postsurgical changes rela daniel to right frontal temporal craniectomy craniectomy with mesh reconstruction. There is encephalomal acia in the anterior right frontal lobe. 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 There are also stable small chronic infarcts in the left cerebellum. There is no evidence of acute intracranial hemorrhage, mass, mass effect midline shift. There is no h ydrocephalus or extra-axial fluid collection. Visualized paranasal sinuses mastoid air cells are clear are clear. IMPRESSION: 1. No acute intracranial process. 2 postsurgical and chronic schema changes as described above changes as described above. HS:Y
[2024-11-04 10:44] LABS: Basophils # (auto) 0 10 ^3/uL (0-0.2); Basophils % (auto) 0.4 % (0.0-2.0); Eosinophils # (auto) 0 10 ^3/uL (0-0.8); Eosinophils % (auto) 0.6 % (0.0-7.0); Hematocrit 37.4 % (36.0-46.0); Hemoglobin 12.4 g/dL (12.2-16.2); Lymphocytes # (auto) 0.9 10 ^3/uL (0.4-5.4); Lymphocytes % (auto) 17.7 % (10.0-50.0); Mean Corpuscular Hemoglobin 30.4 pg (28.0-32.0); Mean Corpuscular Hgb Conc. 33.1 g/dL (32.0-36.0); Mean Corpuscular Volume 91.9 fL (80.0-100.0); Monocytes # (auto) 0.4 10 ^3/uL (0-1.3); Monocytes % (auto) 7.2 % (0.0-12.0); Neutrophils # (auto) 3.7 10 ^3/uL (1.6-8.6); Neutrophils % (auto) 74.1 % (37.0-80.0); Nucleated Red Blood Cells % 0.3 %; Platelet Count (auto) 277 10^3/uL (140-450); Red Blood Cells 4.07 10^6/uL (4.0-5.20); Red Cell Distribution Width 14.3 % (11.8-14.3)
[2024-11-04 11:26] LABS: Anion Gap 8 (5-15); Carbon Dioxide 29 mmol/L (20-31); Chloride 105 mmol/L (98-107); Sodium 142 mmol/L (136-145)
[2024-11-04 11:27] LABS: Calcium 9.9 mg/dL (8.7-10.4)
[2024-11-04 11:32] LABS: BUN/Creatinine Ratio 22.4 (10.0-20.0); Blood Urea Nitrogen 19 mg/dL (9-23)
[2024-11-04 11:34] LABS: Glucose 110 mg/dL (74-106)
--- NOTE | 2024-11-04 13:30 | DVH ---
EXAM: XY CHEST PORTABLE HISTORY: ams COMPARISON: Chest x-ray dated 04/29/2024. TECHNIQUE: Portable upright AP view of the chest was performed. FINDINGS: No pneumothorax, consolidative infiltrates, or pulmonary edema. The heart is is enlarged. Abundant o verlying adipose tissue obscures evaluation of fine detail. IMPRESSION: Cardiomegaly without evidence of acute intrathoracic process.
--- NOTE | 2024-11-04 16:08 | DVHHP2 ---
History of Present Illness Reason for Visit: Altered mental status History of Present Illness Patient was a 64-year-old female brought in by ambulance with reports of altered mental status. At the time of assessment, the patient was able to answer to her name, but unable to answer any other questions in addition to having erratic behavior. She has been found walking around the emergency room. Patient was medical history has been obtained from recent discharge summary. Patient was also on multiple medications for chronic pain management as well as anxiety disorder. Cardiovascular: CHF, HTN Psych: Anxiety Infectious disease: Other (Wound to right lower extremity) Past Surgical History: None Review of Systems Review of Systems Patient denies any symptoms Allergies: Coded Allergies: No Known Drug Allergy (Verified Allergy, Unknown, 07/03/20) Exam Vital Signs Vital Signs Date Time Temp Pulse Resp B/P (MAP) Pulse Ox O2 Delivery O2 Flow Rate FiO2 11/04/24 09:45 97.8 67 22 135/84 (101) 97 General Appearance: Alert, Other (Oriented to name only) HEENT: PERRLA Respiratory: Clear to auscultation, Normal air movement Cardiovascular: Normal S1, Normal S2 Neuro: Cranial nerves 3-12 NL Psych/Mental Status: Other (Patient with erratic behavior.) Labs/Xrays Labs Test 11/04/24 09:52 11/04/24 09:47 Range/Units White Blood Count 5.0 4.4-10.8 10^3/uL Red Blood Count 4.07 4.0-5.20 10^6/uL Hemoglobin 12.4 12.2-16.2 g/dL Hematocrit 37.4 36.0-46.0 % Mean Corpuscular Volume 91.9 80.0-100.0 fL Mean Corpuscular Hemoglobin 30.4 28.0-32.0 pg Mean Corpuscular Hemoglobin Concent 33.1 32.0-36.0 g/dL Red Cell Distribution Width 14.3 11.8-14.3 % Platelet Count 277 140-450 10^3/uL Mean Platelet Volume 7.8 6.9-10.8 fL Neutrophils (%) (Auto) 74.1 37.0-80.0 % Lymphocytes (%) (Auto) 17.7 10.0-50.0 % Monocytes (%) (Auto) 7.2 0.0-12.0 % Eosinophils (%) (Auto) 0.6 0.0-7.0 % Basophils (%) (Auto) 0.4 0.0-2.0 % Neutrophils # (Auto) 3.7 1.6-8.6 10 ^3/uL Lymphocytes # (Auto) 0.9 0.4-5.4 10 ^3/uL Monocytes # (Auto) 0.4 0-1.3 10 ^3/uL Eosinophils # (Auto) 0 0-0.8 10 ^3/uL Basophils # (Auto) 0 0-0.2 10 ^3/uL Nucleated Red Blood Cells 0.3 % Sodium Level 142 136-145 mmol/L Potassium Level 4.0 3.5-5.1 mmol/L Chloride Level 105 98-107 mmol/L Carbon Dioxide Level 29 20-31 mmol/L Anion Gap 8 5-15 Blood Urea Nitrogen 19 9-23 mg/dL Creatinine 0.85 0.550-1.02 mg/dL Glomerular Filtration Rate Calc 76 >90 mL/min BUN/Creatinine Ratio 22.4 H 10.0-20.0 Serum Glucose 110 H 74-106 mg/dL Calcium Level 9.9 8.7-10.4 mg/dL Ammonia < 10 L 11-32 umol/L Troponin I High Sensitivity < 3 L </=34 ng/L POC Glucose 117 H 70-106 mg/dl Assessment/Plan Assessment/Plan Impression: -metabolic encephalopathy, probable toxic etiology -chronic pain syndrome -anxiety disorder -bilateral lower extremity swelling, questionable acute diastolic heart failure -right lower extremity cellulitis Plan: -admit to telemetry unit -empiric antibiotic therapy -hold all pain medications at this time, Haldol 2 mg p.o. q.8 hours as needed for agitation -restart buspirone -CT scan of the head is negative -repeat labs in a.m. Total time spent with patient discussing and formulating plan of care: 35 minutes. This medical document was created using an electronic medical record system with [employer] dictation system. Although this document has been carefully reviewed, there may still be some phonetic and typographical errors. These areas are purely typographical due to imperfections of the software programs, and do not reflect any compromise in the patient's medical care. Plan discussed with: Patient, Other (RN) Date of Service: Nov 04, 2024 Billing Provider: MARIAELENA FULTON NP Common Visit Codes: [id number] INP/OBS CARE (HIGH) MARIAELENA FULTON NP Nov 04, 2024 16:08
[2024-11-04] MEDS ORDERED: NITROGLYCERIN 0.4 MG SL TAB SL PRN (16:15)
[2024-11-04 17:32] LABS: Erythrocyte Sedimentation Rate 7 mm/hr (0-20)
[2024-11-04] MEDS: HALOPERIDOL 1 MG TAB PO PRN (19:42)
[2024-11-04 20:00] VITALS: PULSE 86; RESP 18; O2SAT 98
[2024-11-04] MEDS: cefTRIAXone 1GM/50ML D5W 50 ML IV ONE (21:44)
[2024-11-04] MEDS: busPIRone HCL 10 MG TAB PO SCH (22:37)
[2024-11-04] MEDS: carBAMazepine 200 MG TAB PO SCH (22:38)
[2024-11-04 23:25] VITALS: O2SAT 95
[2024-11-05] MEDS: MORPHINE SULFATE INJ 2 MG/ml SYRG IV PRN (03:44)
[2024-11-05 05:04] LABS: Urine Bacteria None Seen /hpf (None Seen)
[2024-11-05 05:30] LABS: Urine Blood Negative /uL (Negative); Urine Clarity Clear (Clear); Urine Color Light-Yellow (Yellow); Urine Protein, UAD Negative (Negative); Urine Specific Gravity 1.016 (1.001-1.035); Urine Squamous Epithelial Cell None Seen /hpf (<5); Urine Urobilinogen Normal (Negative); Urine WBC 33 /HPF (0-5); Urine WBC Clumps PRESENT /hpf (None Seen)
[2024-11-05 06:13] LABS: Basophils # (auto) 0 10 ^3/uL (0-0.2); Basophils % (auto) 0.4 % (0.0-2.0); Eosinophils # (auto) 0.1 10 ^3/uL (0-0.8); Eosinophils % (auto) 0.8 % (0.0-7.0); Hematocrit 35.6 % (36.0-46.0); Hemoglobin 12.1 g/dL (12.2-16.2); Lymphocytes # (auto) 1.9 10 ^3/uL (0.4-5.4); Lymphocytes % (auto) 27.3 % (10.0-50.0); Mean Corpuscular Hgb Conc. 33.9 g/dL (32.0-36.0); Mean Corpuscular Volume 91.6 fL (80.0-100.0); Monocytes # (auto) 0.6 10 ^3/uL (0-1.3); Monocytes % (auto) 9.2 % (0.0-12.0); Neutrophils # (auto) 4.2 10 ^3/uL (1.6-8.6); Neutrophils % (auto) 62.3 % (37.0-80.0); Nucleated Red Blood Cells % 0.2 %; Platelet Count (auto) 283 10^3/uL (140-450); Red Blood Cells 3.88 10^6/uL (4.0-5.20); Red Cell Distribution Width 13.9 % (11.8-14.3); White Blood Cell 6.8 10^3/uL (4.4-10.8)
[2024-11-05 06:21] LABS: Anion Gap 9 (5-15); Carbon Dioxide 28 mmol/L (20-31); Chloride 104 mmol/L (98-107); Sodium 141 mmol/L (136-145)
[2024-11-05 06:23] LABS: Calcium 10.3 mg/dL (8.7-10.4)
[2024-11-05 06:27] LABS: BUN/Creatinine Ratio 20.2 (10.0-20.0); Blood Urea Nitrogen 17 mg/dL (9-23); Glucose 88 mg/dL (74-106)
[2024-11-05 06:45] LABS: Potassium 3.3 mmol/L (3.5-5.1)
[2024-11-05] MEDS: ACETAMINOPHEN 325 MG TAB PO PRN (07:06)
[2024-11-05 07:30] VITALS: PULSE 62; RESP 18; O2SAT 95
[2024-11-05] MEDS: cefTRIAXone 1GM/50ML D5W 50 ML IV SCH (09:09)
[2024-11-05] MEDS: POTASSIUM CHL 20 Meq TABLET PO ONE (10:39)
--- NOTE | 2024-11-05 10:55 | DVHPN2 ---
Subjective Patient now alert and oriented x4. Denies any symptoms. Reviewed: Care Plan, H&P, Labs, Medications Changes from previous H/P or p: No Changes General: Per HPI Objective Vitals Vital Signs Date Time Temp Pulse Resp B/P (MAP) Pulse Ox O2 Delivery O2 Flow Rate FiO2 11/05/24 09:15 76 20 139/56 (83) 98 11/05/24 07:30 Room Air* 0 21 11/05/24 07:30 98.0 98.0 General Appearance: Alert, Oriented X3, Cooperative, No acute distress HEENT: Atraumatic, PERRLA Cardiovascular: Normal S1, Normal S2 Musculoskeletal: Normal sensory function, Normal motor function Neuro: Normal gait, Normal speech Skin: Dry, Intact Psych/Mental Status: Mood NL Medications Current Medications Medications Dose Ordered Sig/[place] Route Start Time Stop Time Status Last Admin Dose Admin Nitroglycerin 0.4 mg Q5MINP PRN SL 11/04/24 16:15 Morphine Sulfate 2 mg Q30M PRN IV 11/04/24 16:15 11/05/24 03:44 2 MG Haloperidol 2 mg [id number] PRN PO 11/04/24 16:15 11/04/24 19:42 2 MG Ceftriaxone Sodium 50 ml @ 100 mls/hr DAILY@09 IV 11/05/24 09:00 11/05/24 09:09 100 MLS/HR Buspirone HCl 10 mg BID PO 11/04/24 22:00 11/05/24 10:39 10 MG Carbamazepine 200 mg TID PO 11/04/24 22:00 11/05/24 05:42 200 MG Acetaminophen 650 mg Q6HP PRN PO 11/05/24 06:55 11/05/24 07:06 650 MG Laboratory Results Laboratory Tests 11/05/24 05:49 Chemistry Test 11/05/24 05:49 Calcium Level 10.3 mg/dL (8.7-10.4) Urinalysis Test 11/05/24 05:00 Urine Color Light-yellow (Yellow) Urine Clarity Clear (Clear) Urine pH 6.0 (5.0-9.0) Urine Specific [place] 1.016 (1.001-1.035) Urine Protein Negative (Negative) Urine Ketones Negative (Negative) Urine Blood Negative /uL (Negative) Urine Nitrite Negative (Negative) Urine Bilirubin Negative (Negative) Urine Urobilinogen Normal mg/dL (Negative) Urine Leukocyte Esterase 3+ /uL (Negative) Urine RBC 1 /hpf (0 - 4) Urine WBC Clumps Present /hpf (None Seen) Urine Microscopic WBC 33 /HPF (0-5) H Urine Squamous Epithelial Cells None seen /hpf (<5) Urine Bacteria None seen /hpf (None Seen) Urine Glucose Normal mg/dL (Normal) Labs and/or images reviewed: Labs reviewed by me, Image(s) reviewed by me Assessment/Plan Assessment/Plan Impression: -metabolic encephalopathy, probable toxic etiology -chronic pain syndrome -anxiety disorder -bilateral lower extremity swelling, questionable acute diastolic heart failure -right lower extremity cellulitis Plan: Events: Patient now alert and oriented x4. Denies any symptoms. -restart home medications for anxiety, related to pain medication. -empiric antibiotic therapy -labs unremarkable -transfer Medical/Surgical unit. -long discussion made with patient's caregiver, Melinda regarding patient's clinical status prior to arriving in the hospital. All questions answered. Probable etiology for encephalopathy being polypharmacy from psychiatric medications as well as pain management medications. Total time spent with patient discussing and formulating plan of care: 35 minutes. This medical document was created using an electronic medical record system with [employer] dictation system. Although this document has been carefully reviewed, there may still be some phonetic and typographical errors. These areas are purely typographical due to imperfections of the software programs, and do not reflect any compromise in the patient's medical care. Plan discussed with: Patient, Other (RN) My Orders Orders - MARIAELENA FULTON NP Procedure Category Date Status Time Admit ADMIT 11/04/24 Transmitted 16:01 Nitroglycerin PHA 11/04/24 In Process Sublingual (Ntrostat 16:15 Morphine Sulfate PHA 11/04/24 In Process Injection 16:15 Stat Ekg For Chest [facility]PREET 11/04/24 In Process Pain 16:01 Notify Of Changes [facility]PREET 11/04/24 In Process From Base 16:01 Academic Support Director For HARPREET 11/04/24 In Process 24 Hours 16:01 Emergency Dysrhythmia [facility]ET 11/04/24 In Process Protocol 16:01 Rhythm Strips Once HARPREET 11/04/24 In Process Every Shift 16:01 Oxygen By Nasal RT 11/04/24 Transmitted Cannula 16:01 Regular Diet DIET 11/04/24 Transmitted Dinner Haloperidol Tablet PHA 11/04/24 In Process (Haldol Tablet) 16:15 C-Reactive Protein LAB 11/04/24 In Process 16:01 Ceftriaxone 1gm/50ml PHA 11/05/24 In Process D5w (Rocephin) 09:00 Buspirone Hcl Tablet PHA 11/04/24 In Process (Buspar Tablet) 22:00 Carbamazepine Tablet PHA 11/04/24 In Process (Tegretol Tablet) 22:00 Date of Service: Nov 05, 2024 Billing Provider: MARIAELENA FULTON NP Common Visit Codes: [id number] INP/OBS CARE(HIGH) MARIAELENA FULTON NP Nov 05, 2024 10:55
[2024-11-05] MEDS: BUMETANIDE 1 MG TAB PO SCH (18:25)
[2024-11-05 19:50] VITALS: PULSE 73; RESP 17; O2SAT 95
[2024-11-05 21:29] VITALS: BP 139/79; PULSE 72; RESP 17; TEMP 97.9; O2SAT 96
[2024-11-05] MEDS: ATORVASTATIN 20 MG TAB PO SCH (22:10)
[2024-11-06 01:00] VITALS: BP 135/76; PULSE 68; RESP 18; TEMP 97.7; O2SAT 97
[2024-11-06 05:00] VITALS: BP 140/69; PULSE 60; RESP 18; TEMP 97.9; O2SAT 98
[2024-11-06 08:00] VITALS: PULSE 69; RESP 20; O2SAT 98
[2024-11-06] MEDS: FLUoxetine HCL 20 MG CAP PO SCH (08:42)
[2024-11-06 09:00] VITALS: BP 110/53; PULSE 69; RESP 20; TEMP 98; O2SAT 98
--- NOTE | 2024-11-06 09:11 | DVHDS2 ---
Discharge Summary Date of Admission Nov 04, 2024 at 16:01 Date of Discharge: Nov 06, 2024 Admitting Diagnosis Metabolic encephalopathy Labs/Diagnostic Data: Laboratory Results Test 11/05/24 05:49 11/05/24 05:00 11/04/24 16:33 11/04/24 09:52 White Blood Count 6.8 10^3/uL (4.4-10.8) Red Blood Count 3.88 10^6/uL (4.0-5.20) Hemoglobin 12.1 g/dL (12.2-16.2) Hematocrit 35.6 % (36.0-46.0) Mean Corpuscular Volume 91.6 fL (80.0-100.0) Mean Corpuscular Hemoglobin 31.0 pg (28.0-32.0) Mean Corpuscular Hemoglobin Concent 33.9 g/dL (32.0-36.0) Red Cell Distribution Width 13.9 % (11.8-14.3) Platelet Count 283 10^3/uL (140-450) Mean Platelet Volume 7.3 fL (6.9-10.8) Neutrophils (%) (Auto) 62.3 % (37.0-80.0) Lymphocytes (%) (Auto) 27.3 % (10.0-50.0) Monocytes (%) (Auto) 9.2 % (0.0-12.0) Eosinophils (%) (Auto) 0.8 % (0.0-7.0) Basophils (%) (Auto) 0.4 % (0.0-2.0) Neutrophils # (Auto) 4.2 10 ^3/uL (1.6-8.6) Lymphocytes # (Auto) 1.9 10 ^3/uL (0.4-5.4) Monocytes # (Auto) 0.6 10 ^3/uL (0-1.3) Eosinophils # (Auto) 0.1 10 ^3/uL (0-0.8) Basophils # (Auto) 0 10 ^3/uL (0-0.2) Nucleated Red Blood Cells 0.2 % Sodium Level 141 mmol/L (136-145) Potassium Level 3.3 mmol/L (3.5-5.1) Chloride Level 104 mmol/L (98-107) Carbon Dioxide Level 28 mmol/L (20-31) Anion Gap 9 (5-15) Blood Urea Nitrogen 17 mg/dL (9-23) Creatinine 0.84 mg/dL (0.550-1.02) Glomerular Filtration Rate Calc 77 mL/min (>90) BUN/Creatinine Ratio 20.2 (10.0-20.0) Serum Glucose 88 mg/dL (74-106) Calcium Level 10.3 mg/dL (8.7-10.4) Urine Color Light-yellow (Yellow) Urine Clarity Clear (Clear) Urine pH 6.0 (5.0-9.0) Urine Specific [place] 1.016 (1.001-1.035) Urine Protein Negative (Negative) Urine Ketones Negative (Negative) Urine Blood Negative /uL (Negative) Urine Nitrite Negative (Negative) Urine Bilirubin Negative (Negative) Urine Urobilinogen Normal mg/dL (Negative) Urine Leukocyte Esterase 3+ /uL (Negative) Urine RBC 1 /hpf (0 - 4) Urine WBC Clumps Present /hpf (None Seen) Urine Microscopic WBC 33 /HPF (0-5) Urine Squamous Epithelial Cells None seen /hpf (<5) Urine Bacteria None seen /hpf (None Seen) Urine Glucose Normal mg/dL (Normal) Troponin I High Sensitivity 4 ng/L (</=34) Erythrocyte Sedimentation Rate 7 mm/hr (0-20) Ammonia < 10 umol/L (11-32) C-Reactive Protein High Sensitivity 0.03 mg/dL (<1.0) Test 11/04/24 09:47 POC Glucose 117 mg/dl (70-106) Other Laboratory Tests 11/05/24 05:49 Brief Hx & Hospital Course: History of Present Illness Patient was a 64-year-old female brought in by ambulance with reports of altered mental status. At the time of assessment, the patient was able to answer to her name, but unable to answer any other questions in addition to having erratic behavior. She has been found walking around the emergency room. Patient was medical history has been obtained from recent discharge summary. Patient was also on multiple medications for chronic pain management as well as anxiety disorder. Course of hospitalization: Patient was initially treated with Haldol p.o., with cessation of all prescribed medications. 24 hours later, the patient was found to be alert and oriented x4. Discussion was made with the patient's caregiver, Emlinda, regarding patient's past medical history and current treatment that she was receiving from caregivers as well as home health services. Today, the patient continues to be A&O x4 without any issues. Long discussion was made regarding polypharmacy from her chronic pain management doctor, psychiatrist, as well as her PCP. At this time she states that she will continue all of her medications and she was to stop taking baclofen for back discomfort. She was instructed to follow up with her PCP within 1-2 weeks and have her home medications re-evaluated. She was agreeable with discharge plan. All questions answered. Physical examination General: Alert and Oriented x3. No acute distress. Well-nourished. Eyes: EOMI. Anicteric. HENT: Moist mucous membranes. Lungs: Clear to auscultation bilaterally. No accessory muscle use. Cardiovascular: Regular rate and rhythm. No murmur. No JVD. Abdomen: Soft, non-tender and non-distended. No palpable masses. Extremities: No edema. Non-tender. Skin: No rashes or lesions. Warm. Neurologic: No focal neurological deficits. CN II-XII grossly intact, but not individually tested. Psychiatric: Cooperative. Appropriate mood and affect. Total time spent with patient discussing and formulating plan of care: 35 minutes. This medical document was created using an electronic medical record system with [employer] dictation system. Although this document has been carefully reviewed, there may still be some phonetic and typographical errors. These areas are purely typographical due to imperfections of the software programs, and do not reflect any compromise in the patient's medical care. Condition at Discharge: Guarded Final Diagnosis/Problems List Toxic metabolic encephalopathy from prescribed polypharmacy Secondary diagnosis -chronic pain syndrome -anxiety disorder -bilateral lower extremity swelling, probable acute diastolic heart failure -right lower extremity cellulitis Discharge Disposition: Home Discharge Instruct/Medications Diet: Cardiac 2g Na,low cholest Activity: No Restrictions, As Tolerated Follow Up/Referral: Follow up with PCP in 1-2 weeks Please have PCP re-evaluate all medications prescribed to patient with respect to causing altered mental status. Medications: Continue all home medications. Discussed with the patient regarding polypharmacy. She states that she will stop taking her baclofen at this time, but wishes to continue all her other medications 36 Discharge Statement: "Patient was advised to return to the ER or call 911 if any headaches, dizziness, shortness of breath, chest pain, abdominal pain, bleeding, fevers, or worsening of medical condition. Patient was counseled about treatment plan, medications, possible side effects, patientverbalized understanding. All questions were answered to the best of my ability. This discharge took greater then 30 minutes in planning, reviewing documentation, counseling the patient, and discussing with other team members." ASSESSMENT ASSESSMENT Assessment Toxic metabolic encephalopathy from prescribed polypharmacy Date of Service: Nov 06, 2024 Billing Provider: MARIAELENA FULTON NP Common Visit Codes: 53007-EKL/OBS DISCH DAY >30min MARIAELENA FULTON NP Nov 06, 2024 09:11
[2024-11-06 13:00] VITALS: BP 128/53; PULSE 66; RESP 18; TEMP 98.3; O2SAT 95
== END 2024-11-06 13:25 | disposition home or self-care (01) | DRG 91 ==
LOC: EDBD 09:27 → ER 09:27 → TELE 16:01 → OVERFLOW 16:30 → TELE-WESTW 11-05 21:14 → WEST WING 11-06 01:04
PROVIDERS: ADMIT Nurse Practitioner Acute Care; ATTEND Nurse Practitioner Acute Care
DX: G92.8 Other toxic encephalopathy (principal); I50.31 Acute diastolic (congestive) heart failure; L03.115 Cellulitis of right lower limb; I11.0 Hypertensive heart disease with heart failure; T50.995A Adverse effect of other drugs, medicaments and biological substances, initial encounter; F41.9 Anxiety disorder, unspecified; E11.9 Type 2 diabetes mellitus without complications; G89.4 Chronic pain syndrome; Z79.4 Long term (current) use of insulin; Z79.899 Other long term (current) drug therapy; Y92.89 Other specified places as the place of occurrence of the external cause
CPT/HCPCS: 36415; 70450; 71045; 80048; 81001; 82140; 82962; 84484; 85025; 85652; 86141; 93005; 99291; G0378

== ENCOUNTER 2024-11-16 09:43 | Emergency (ER) | payer OTHER, MEDICAID ==
[~2024-11-16] VITALS: Ht 165.1 cm; Wt 68.0 kg
[~2024-11-16 09:43] MED LIST changes: -BUM1T PO; -BUME2TAB5 PO; -CEPH500C PO; -FLUO60TA PO; -HYDR-4902 PO; -LEVO750T40 PO; -POTA-211 PO; -[UNRECOGNIZED DRUG - CODE] PO
--- NOTE | 2024-11-16 11:14 | ED.PDOC ---
Psychiatric HPI Comments 64 year old female with a history of anxiety disorder, presents to the ED via EMS for a chief complaint of persistent bilateral knee pain. Patient reports taking [place] this morning without relief, states she was seen at another hospital earlier today in which she had an ultrasound done which showed no blood clots. Patient presents with anxiety, visibly distressed and difficulty expressing herself which she admits is due to severe anxiety. Patient is unable to speak in full sentences due to her anxiety but is answering some questions. Patient has a chronic right ankle wound x 1 year. Patient is followed by pain management for bilateral knee arthritis. Additional medical history attained by [facility] medical records include CHF, DM, hyperlipidemia, HTN, anemia, and seizures. 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 Hx Family History Family History: Reviewed,noncontributory to illness Social History Smoker: Non-Smoker Alcohol: Denies ETOH Use Drugs: Denies Drug Use Lives In: Home Constitutional: denies: chills, diaphoresis, fatigue, fever, malaise, sweats, weakness, others EENTM: denies: blurred vision, double vision, ear bleeding, ear discharge, ear drainage, ear pain, ear ringing, eye pain, eye redness, hearing loss, mouth pain , mouth swelling, nasal discharge, nose bleeding, nose congestion, nose pain, photophobia, tearing, throat pain, throat swelling, voice changes, others Respiratory: denies: cough, hemoptysis, orthopnea, SOB at rest, shortness of breath, SOB with excertion, stridor, wheezing, others Cardiovascular: denies: chest pain, dizzy spells, diaphoresis, Dyspnea on exertion, edema, irregular heart beat, left arm pain, lightheadedness, palpitations, PND, syncope, others Gastrointestinal: denies: abdomen distended, abdominal pain, blood streaked bowels, constipated, diarrhea, dysphagia, difficulty swallowing, hematemesis, melena, nausea, poor appetite, poor fluid intake, rectal bleeding, rectal pain, vomiting, others Genitourinary: denies: abnormal vagina bleeding, burning, dyspareunia, dysuria, flank pain, frequency, hematuria, incontinence, pain, , vagina discharge, urgency, others Neurological: denies: dizziness, fainting, headache, left sided numbness, left sided weakness, numbness, paresthesia, pre-existing deficit, right sided numbness, right sided weakness, seizure, speech problems, tingling, tremors, weakness, others Musculoskeletal: reports: others (bilateral leg pain ); denies: back pain, gout, joint pain, joint swelling, muscle pain, muscle stiffness, neck pain Integumetry: denies: bruises, change in color, change in hair/nails, dryness, laceration, lesions, lumps, rash, wounds, others Allergic/Immunocompromised: denies: Difficulty Healing, Frequent Infections, Hives, Itching, others Hematologic/Lymphatic: denies: anemia, blood clots, easy bleeding, easy bruising, swollen glands, others Endocrine: denies: excessive hunger, excessive sweating, excessive thirst, excessive urination, flushing, intolerance to cold, intolerance to heat, unexplained weight gain, unexplained weight loss, others Psychiatric: reports: anxiety; denies: bipolar disorder, depression, hopeless, panic disorder, schizophrenia, sleepless, suicidal, others All Other Systems: Reviewed and Negative Physical Exam General Appearance: Moderate Distress HEENT: Other (Pupils and face symmetric. Moist mucous membranes) Neck: Full Range of Motion, Normal Inspection Respiratory: Lungs Clear, No Accessory Muscle Use, No Respiratory Distress, Normal Breath Sounds, Other (Hyperventilating) Cardiovascular: No Edema, No JVD, Regular Rate/Rhythm Breast Exam: Deferred Gastrointestinal: Non Tender, Soft Genitalia: Deferred Pelvic: Deferred Rectal: Deferred Extremities: Leg edema (Case), Normal range of motion, Pedal edema (Trace), Tender (Bilateral knee diffuse soft tissue tenderness. No edema. Full range of motion. Right ankle wound with scabbed lesion. No surrounding erythema or edema. No tenderness or discharge.) Neurologic: Alert (Oriented x4), Other (Very anxious) Cerebellar Function: NOT DONE Reflexes: NOT DONE Skin: Dry, Normal Color, Warm, Wounds (Right ankle wound on the medial aspect with scabbed lesion and no surrounding erythema or edema. No tenderness. No discharge.) Lymphatic: NOT DONE Was a procedure done? Was a procedure done?: No Psych Differential Dx Psych. Differential Dx: Anxiety, Panic Disorder OD Differential Dx: Substance Abuse Intoxication Differential Dx: Encephalopathy X-Ray, Labs, Meds, VS Vital Signs Date Time Temp Pulse Resp B/P (MAP) Pulse Ox O2 Delivery O2 Flow Rate FiO2 11/16/24 15:27 60 16 141/72 (95) 11/16/24 12:15 70 18 125/60 11/16/24 11:52 65 19 98 Nasal Cannula* 2 28 11/16/24 11:45 98.2 68 20 129/48 (75) 99 98.2 11/16/24 11:45 68 18 129/48 11/16/24 11:45 68 20 99 Room Air 11/16/24 09:52 99.3 72 15 121/73 (89) 96 Current Medications Medications (Trade) Dose Ordered Sig/[place] Route Start Time Stop Time Status Last Admin Lorazepam (Ativan Inj) 1 mg ONCE ONCE IM 11/16/24 11:00 11/16/24 11:01 DC 11/16/24 11:41 Morphine Sulfate 4 mg ONCE ONCE IM 11/16/24 11:00 11/16/24 11:01 DC 11/16/24 11:45 Ondansetron HCl (Zofran Po) 4 mg ONCE ONCE PO 11/16/24 11:00 11/16/24 11:01 DC 11/16/24 11:45 X-Ray, Labs, Meds, VS Comment 54-year-old female with a history of hypertension, diabetes, dyslipidemia, anemia, anxiety/panic attacks, seizures and depression brought in by EMS complaining of severe anxiety/panic attack, provoked by persistent bilateral knee chronic pain Vitals unremarkable Exam remarkable for hyperventilation and bilateral knee soft tissue tenderness. Rhythm strip independently interpreted by me: Sinus rhythm, rate 72, no ectopy. Patient treated with the following in the ED: Ativan 1 mg IM, morphine 4 mg IM On re-evaluation, patient is asleep. She was easily arousable and stated her pain had improved. She was no longer hyperventilating and stated she no longer feel anxious. Patient appears well and is stable for discharge with close outpatient follow-up with her primary physician. 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 I have prescribed medication for anxiety. Continue your own pain medications as needed. e-Prescriptions Lorazepam (ATIVAN TABLET) 0.5 Mg Tb 1 TAB PO BID PRN, #20 TAB prn anxiety/panic attack/hyperventilation Prov: STEFAN VALIENTE MD 11/16/24 Critical Care Note Critical Care Time?: No Stability Stability form required: No I personally scribed for STEFAN VALIENTE MD ([facility]) on 11/16/24 at 11:14. Electronically submitted by Molly Franklin ([facility]). STEFAN VALIENTE MD Nov 16, 2024 11:14
[2024-11-16] MEDS: LORazepam 2MG/ML-1ML VIAL IM ONE (11:41)
[2024-11-16] MEDS: MORPHINE SULFATE 4 MG/ML SYR/VIAL IM ONE (11:45)
[2024-11-16] MEDS: ONDANSETRON ODT 4 MG TAB PO ONE (11:45)
[2024-11-16 11:52] VITALS: PULSE 65; RESP 19; O2SAT 98
[2024-11-16] MEDS ORDERED: LORA-1121 PO (17:47)
[2024-11-16 20:24] VITALS: BP 152/75; PULSE 60; RESP 19; TEMP 97.9; O2SAT 97
== END 2024-11-16 20:24 | disposition home or self-care (01) ==
LOC: EDBD 09:43 → EDUNIT# 09:43 → ER 09:43 → EDSEX 09:43 → ER 20:24
DX: F45.8 Other somatoform disorders (principal); G89.29 Other chronic pain; M25.561 Pain in right knee; M25.562 Pain in left knee; I11.0 Hypertensive heart disease with heart failure; I50.9 Heart failure, unspecified; E11.9 Type 2 diabetes mellitus without complications; E78.5 Hyperlipidemia, unspecified; F41.9 Anxiety disorder, unspecified; M17.0 Bilateral primary osteoarthritis of knee; F32.A Depression, unspecified; D64.9 Anemia, unspecified
CPT/HCPCS: 96372; 99285; J2060; J2270; Q0162

== ENCOUNTER 2025-03-10 12:42 | Inpatient (IN) | payer OTHER, MEDICAID ==
[~2025-03-10] VITALS: Ht 162.6 cm; Wt 107.6 kg
[~2025-03-10 12:42] MED LIST changes: +LORA-1121 PO
--- NOTE | 2025-03-10 13:02 | ED.PDOC ---
History of Present Illness HPI Comments 64 year old female was BIBA for the c/c of Generalized Weakness. Pt states that she has been experiencing multiple mechanical falls since yesterday, and also notes on having Flu-like symptoms. Pt is noted to have multiple bruises and contusions, as well as surrounding erythema to medial and lateral aspect of her knees. Pt notes on taking a [place] 3x times a day. No other associated symptoms, modifiers, recent injuries or sick contacts present at this time. 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, Medications, Allergies Allergies: Coded Allergies: No Known Drug Allergy (Verified Allergy, Unknown, 07/03/20) Home Meds Active Scripts Lorazepam (ATIVAN TABLET) 0.5 Mg Tb, 1 TAB PO BID PRN, #20 TAB prn anxiety/panic attack/hyperventilation Prov:STEFAN VALIENTE MD 11/16/24 Clonazepam (KlonoPIN TABLET) 0.5 Mg Tb, 1 TAB PO TID PRN, #30 TAB Prov:LINK DELGADO MD 05/10/24 Reported Medications Potassium Chloride (Potassium Chloride ER) 10 Meq Tab, 1 TAB PO BID for 30 Days, #60 11/05/24 Bumetanide (Bumetanide) 1 Mg Tab, 1 MG PO BID for 30 Days, #60 11/05/24 Fluoxetine Hcl (Fluoxetine Hcl) 40 Mg Cap, 2 CAP PO DAILY for 30 Days, #60 11/05/24 Buspirone HCl (Buspirone Hydrochloride) 15 Mg Tab, 1 TAB PO BID for 90 Days, #180 11/05/24 Collagenase (Collagenase) Pow, 1 DOSE XX DAILY, POW 05/10/24 Ondansetron Odt 4MG Tab (ZOFRAN PO) 4 Mg Tb, 1 TAB SL Q12HR PRN for NAUSEA / VOM ITING ODT TAB-DISSOLVE IN MOUTH, THEN SWALLOW 04/30/24 Gabapentin (Gabapentin) 100 Mg Cap, 1 CAP PO TID for 30 Days, #90 04/30/24 Lactulose (Constulose) 10 Gm/15 Ml Lia, 10 GM PO BID 04/30/24 Ergocalciferol (VITAMIN D 53715 UNIT) 50,000 [place], [address] UNIT PO QWEEKLY, CAP 7/29/24 Ferrous Sulfate (Iron) 325 Mg Tab, 325 MG PO DAILY, TAB 04/21/24 Naproxen (NAPROSYN TABLET) 500 Mg Tb, 1 TAB PO BID PRN for PAIN SCALE 1 THRU 6 12/13/23 Hydrocodone-Acetaminophen (Hydrocodone/Acetaminophen 7.5-325 mg) 1 Tab Tab, 1 TA B PO TID PRN for PAIN SCALE 7 THRU 10 for 30 Days, #90 12/13/23 Folic Acid (Folic Acid) 1 Mg Tab, 1 TAB PO DAILY 12/13/23 Oxybutynin Chloride (Oxybutynin Chloride) 5 Mg Tab, 1 TAB PO DAILY for 90 Days, #90 12/13/23 Simvastatin (Simvastatin) 20 Mg Tab, 1 TAB PO HS for 90 Days, #90 04/15/23 Dulaglutide (Trulicity) 0.75 Mg/0.5 Ml Inj, 0.75 MG SC QWEEKLY for 28 Days, #2 04/15/23 Carbamazepine (TEGretol TABLET) 200 Mg Tb, 1 TAB PO TID for 90 Days, #270 03/01/23 Aspirin (Aspirin Low Dose) 81 Mg Tab, 1 TAB PO DAILYPRN 07/30/21 Baclofen (Baclofen) 20 Mg Tab, 1 TAB PO TID for 30 Days, #90 07/30/21 Nabumetone (Nabumetone) 500 Mg Tab, 1 TAB PO BID for 30 Days, #60 07/30/21 Magnesium Oxide (mg Supplement (Magnesium-Oxide) 400 Mg Tab, 1 TAB PO DAILYPRN 07/30/21 Information Source: Patient, Emergency Med Personnel Mode of Arrival: EMS Severity: Moderate Timing: Hours Duration: Since onset, Hours Prehospital treatment: Oxygen Past Medical History PAST MEDICAL HISTORY: Anemia, Anxiety, Arthritis, CHF, Depression, DM, High Lipids, HTN, Seizures Surgical History: Denies all surgeries [employer] History: Denies all [employer] Hx Family History Family History: Reviewed,noncontributory to illness Social History Smoker: Non-Smoker Alcohol: Denies ETOH Use Drugs: Denies Drug Use Lives In: Home Constitutional: reports: fever; denies: chills, diaphoresis, fatigue, malaise, sweats, weakness, others EENTM: denies: blurred vision, double vision, ear bleeding, ear discharge, ear drainage, ear pain, ear ringing, eye pain, eye redness, hearing loss, mouth pain, mouth swelling, nasal discharge, nose bleeding, nose congestion, nose pain, photophobia, tearing, throat pain, throat swelling, voice changes, others Respiratory: denies: cough, hemoptysis, orthopnea, SOB at rest, shortness of breath, SOB with excertion, stridor, wheezing, others Cardiovascular: denies: chest pain, dizzy spells, diaphoresis, Dyspnea on exertion, edema, irregular heart beat, left arm pain, lightheadedness, palpitations, PND, syncope, others Gastrointestinal: denies: abdomen distended, abdominal pain, blood streaked bowels, constipated, diarrhea, dysphagia, difficulty swallowing, hematemesis, melena, nausea, poor appetite, poor fluid intake, rectal bleeding, rectal pain, vomiting, others Genitourinary: denies: abnormal vagina bleeding, burning, dyspareunia, dysuria, flank pain, frequency, hematuria, incontinence, pain, , vagina discharge, urgency, others Neurological: denies: dizziness, fainting, headache, left sided numbness, left sided weakness, numbness, paresthesia, pre-existing deficit, right sided numbness, right sided weakness, seizure, speech problems, tingling, tremors, weakness, others Musculoskeletal: denies: back pain, gout, joint pain, joint swelling, muscle pain, muscle stiffness, neck pain, others Integumetry: denies: bruises, change in color, change in hair/nails, dryness, laceration, lesions, lumps, rash, wounds, others Allergic/Immunocompromised: denies: Difficulty Healing, Frequent Infections, Hives, Itching, others Hematologic/Lymphatic: denies: anemia, blood clots, easy bleeding, easy bruising, swollen glands, others Endocrine: denies: excessive hunger, excessive sweating, excessive thirst, excessive urination, flushing, intolerance to cold, intolerance to heat, unexplained weight gain, unexplained weight loss, others Psychiatric: denies: anxiety, bipolar disorder, depression, hopeless, panic disorder, schizophrenia, sleepless, suicidal, others All Other Systems: Reviewed and Negative Physical Exam General Appearance: Mild Distress, Normal, Obese HEENT: Normal ENT Inspection, Pharynx Normal, TMs Normal Neck: Full Range of Motion, Non-Tender, Normal Respiratory: Chest Non-Tender, Lungs Clear, No Accessory Muscle Use, No Respiratory Distress, Normal Breath Sounds Cardiovascular: No Edema, No JVD, No Murmur, Normal Peripheral Pulses, Regular Rate/Rhythm Breast Exam: Deferred Gastrointestinal: Non Tender, No Pulsatile Mass, Normal Bowel Sounds, Soft Genitalia: Deferred Pelvic: Deferred Rectal: Deferred Extremities: No calf tenderness, Normal range of motion, Non-tender, No pedal edema Musculoskeletal : Location: Bilateral Extremity Location: Knee (buises and contusions noted) Apperance: Normal Neurologic: Alert, No Motor Deficits, Normal Mood Cerebellar Function: Normal Reflexes: Normal Skin: Dry, Normal Color, Warm Lymphatic: No Adenopathy Was a procedure done? Was a procedure done?: No Differential Dx Considerations may include: acs, cva, viral syndrome, infectious etiology, cardiac arrhythmia X-Ray, Labs, Meds, VS Vital Signs Date Time Temp Pulse Resp B/P (MAP) Pulse Ox O2 Delivery O2 Flow Rate FiO2 03/10/25 12:58 99.6 87 12 103/74 (84) 100 99.6 03/10/25 12:49 82 Lab Test 03/10/25 14:07 Range/Units White Blood Count 11.3 H 4.4-10.8 10^3/uL Red Blood Count 4.00 4.0-5.20 10^6/uL Hemoglobin 11.6 L 12.2-16.2 g/dL Hematocrit 34.5 L 36.0-46.0 % Mean Corpuscular Volume 86.2 80.0-100.0 fL Mean Corpuscular Hemoglobin 29.1 28.0-32.0 pg Mean Corpuscular Hemoglobin Concent 33.7 32.0-36.0 g/dL Red Cell Distribution Width 13.5 11.8-14.3 % Platelet Count 242 140-450 10^3/uL Mean Platelet Volume 8.2 6.9-10.8 fL Neutrophils (%) (Auto) 87.8 H 37.0-80.0 % Lymphocytes (%) (Auto) 4.4 L 10.0-50.0 % Monocytes (%) (Auto) 7.2 0.0-12.0 % Eosinophils (%) (Auto) 0.2 0.0-7.0 % Basophils (%) (Auto) 0.4 0.0-2.0 % Neutrophils # (Auto) 9.9 H 1.6-8.6 10 ^3/uL Lymphocytes # (Auto) 0.5 0.4-5.4 10 ^3/uL Monocytes # (Auto) 0.8 0-1.3 10 ^3/uL Eosinophils # (Auto) 0 0-0.8 10 ^3/uL Basophils # (Auto) 0 0-0.2 10 ^3/uL Nucleated Red Blood Cells 0.0 % Sodium Level 139 136-145 mmol/L Potassium Level 3.7 3.5-5.1 mmol/L Chloride Level 104 98-107 mmol/L Carbon Dioxide Level 19 L 20-31 mmol/L Anion Gap 16 H 5-15 Blood Urea Nitrogen 44 H 9-23 mg/dL Creatinine 2.46 H 0.550-1.02 mg/dL Glomerular Filtration Rate Calc 21 >90 mL/min BUN/Creatinine Ratio 17.9 10.0-20.0 Serum Glucose 79 74-106 mg/dL Calcium Level 9.9 8.7-10.4 mg/dL Troponin I High Sensitivity 39 *H </=34 ng/L B-Type Natriuretic Peptide 232.47 0-100 pg/mL Current Medications Medications (Trade) Dose Ordered Sig/[place] Route Start Time Stop Time Status Last Admin Sodium Chloride 1,000 ml @ 1,000 mls/hr Q1H ONCE IV 03/10/25 13:00 03/10/25 13:59 DC 03/10/25 14:30 Time of 1ST Reevaluation: 13:30 Reevaluation 1ST: Unchanged Patient Education/Counseling: Diagnosis, Treatment Family Education/Counseling: No Family Present SEPSIS Sepsis Screen Orders/Vitals/Labs Physician Orders Electrocardigram (03/10/25 12:56) L Tib Fib Xray (03/10/25 12:58) R Knee 3v Xray (03/10/25 12:58) L Knee 3v Xray (03/10/25 12:58) Urinalysis (03/10/25 12:58) Chest Portable (03/10/25 12:58) Drug Screen (03/10/25 12:58) Head Without Contrast (03/10/25 12:58) Troponin-I Hs (03/10/25 13:58) Troponin-I Hs (03/10/25 15:58) Vital Signs Date Time Temp Pulse Resp B/P (MAP) Pulse Ox O2 Delivery O2 Flow Rate FiO2 03/10/25 12:58 99.6 87 12 103/74 (84) 100 99.6 03/10/25 12:49 82 Laboratory Tests Test 03/10/25 14:07 White Blood Count 11.3 10^3/uL (4.4-10.8) H Medications Medications Dose Ordered Sig/[place] Route Start Time Stop Time Status Last Admin Dose Admin Sodium Chloride 1,000 ml @ 1,000 mls/hr Q1H ONCE IV 03/10/25 13:00 03/10/25 13:59 DC 03/10/25 14:30 Departure 1 Departure Time of Disposition: 15:20 (Patient presented with syncope today and should be admitted. Data: 1. I ordered and reviewed the result of at least 3 labs including a CBC, BMP, and troponin. 2. I independently interpreted the following tests: EKG which shows a sinus tachycardia and a chest x-ray which shows benign chest and a CT head which shows chronic infarcts.Risk:This patient has a high risk of morbidity due to further diagnostic testing or treatment and may suffer from an acute cardiac, neurologic, or infectious disorder. Rationale: Patient should be admitted to the hospital for further management.) Impression: Primary Impression: Syncope and collapse Additional Impressions: Elevated troponin Generalized weakness Disposition: ADMITTED INPATIENT Admit to: Med Surg Condition: Serious Critical Care Note Critical Care Time?: Yes Critical care comment: Syncope and elevated troponin Authorized and Performed by: Lelo Don MD Total critical care time: Approximately 39 minutes Due to a high probability of clinically significant, life threatening deterioration, the patient required my highest level of preparedness to intervene emergently and I personally spent this critical care time directly and personally managing the patient. This critical care time included obtaining a history; examining the patient; pulse oximetry; ordering and review of studies; arranging urgent treatment with development of a management plan; evaluation of patient's response to treatment; frequent reassessment; and, discussions with other providers. This critical care time was performed to assess and manage the high probability of imminent, life-threatening deterioration that could result in multi-organ failure. It was exclusive of separately billable procedures and treating other patients and teaching time. Please see my other sections and the rest of the note for further information on patient assessment and treatment. Stability Stability form required: No Heart Score Heart Score: Heart Score Response (Comments) Value History N/A 0 EKG N/A 0 Age N/A 0 Risk Factors N/A 0 Troponin N/A 0 Total 0 I personally scribed for LELO DON MD ([email or web address]) on 03/10/25 at 13:02. Electronically submitted by Monster Pacheco ([email or web address]). LELO DON MD Mar 10, 2025 13:02
--- NOTE | 2025-03-10 14:00 | DVH ---
EXAM: XY CHEST PORTABLE HISTORY: fall COMPARISON: XY CHEST PORTABLE on DOS: 11/04/24, XY CHEST PORTABLE on DOS: 04/29/24, XY CHEST PORTABLE on DOS: 04/14/23, XY CHEST PORTABLE on DOS: 03/20/23, XY CHEST XRAY 1 VIEW on DOS: 03/01/23 TECHNIQUE: Portable upright AP view of the chest was performed. FINDINGS: No pneumothorax, consolidative infiltrates, or pulmonary edema. There is mild relative elevation of t he right hemidiaphragm. The heart is enlarged. The aortic arch is calcific. No fractures are identif ied about the bony thorax. The right humeral head is high-riding, consistent with significant rotator cuff tendinopathy. IMPRESSION: 1. No acute intrathoracic process. 2. Cardiomegaly and atherosclerotic vascular disease.
--- NOTE | 2025-03-10 14:01 | DVH ---
EXAM: XY L KNEE 3V XRAY INDICATION: fall TECHNIQUE: 3 views of the left knee COMPARISON: XY R KNEE 3V XRAY on DOS: 05/03/24 FINDINGS/IMPRESSION: No radiographic evidence of an acute osseous abnormality. There is no acute fracture, osseous malalig nment, or aggressive focal osseous lesion. Moderate to severe medial weight-bearing compartment joint space loss. Tricompartmental marginal osteophytosis. Small to medium knee joint effusion. Diffusely decreased bone mineralization.
--- NOTE | 2025-03-10 14:02 | DVH ---
EXAM: XY L TIB FIB XRAY REASON FOR EXAM: fall TECHNIQUE: 2 views of the left tibia/fibula COMPARISON: None FINDINGS/IMPRESSION: No acute fracture, malalignment, or aggressive osseous lesion. No abnormal periosteal reaction or scl erosis. Soft tissues are normal.
--- NOTE | 2025-03-10 14:06 | DVH ---
EXAM: XY R KNEE 3V XRAY HISTORY: fall COMPARISON: CT of the right lower leg dated 12/12/2023 TECHNIQUE: 3 views of the right knee were performed. FINDINGS/IMPRESSION: 1. No definite acute fracture of the right knee. 2. Severe tricompartmental degenerative changes of the right knee with marginal osteophytes, joint sp bashir narrowing, and extensive articular surface irregularities. 3. Calcifications medial to the medial femoral condyle may be due to old MCL injury. These are stabl e compared with prior CT imaging. 4. Large right knee effusion.
--- NOTE | 2025-03-10 14:10 | DVH ---
EXAM: CT HEAD WITHOUT CONTRAST HISTORY: fall COMPARISON: CT HEAD WITHOUT CONTRAST on DOS: 11/04/24, CT HEAD WITHOUT CONTRAST on DOS: 04/21/24, CT HE AD WITHOUT CONTRAST on DOS: 09/22/23, CT HEAD WITHOUT CONTRAST on DOS: 03/27/23, CT STROKE CTH on DOS: 03/01/23 TECHNIQUE: Noncontrast axial CT images of the head were performed. Sagittal and coronal reformatted i mages were obtained. This CT exam was performed using 1 or more of the following dose reduction techn iques: Automated exposure control, adjustment of the mA and/or kv according to patient size, or the u se of iterative reconstruction techniques. Radiation Dose: CTDI volume is 55.01 mGy. Dose-length product is 1084.04 mGy*cm FINDINGS: There are postoperative changes right frontotemporal craniotomy. There is encephalomalacia of the rig ht frontal lobe, and to a much lesser extent right temporal lobe. There is mild global brain atrophy . 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 There may be an old lacunar infarct of the left berto versus artifactual appearance. There are small bilateral bas al ganglia calcifications. No intracranial hemorrhage, mass, midline shift, hydrocephalus, or evidenc e of acute large vessel infarct. The partially-visualized paranasal sinuses are clear. There is irreg ularity of the cribriform plate, more so on the right, possibly due to old trauma or prior postoperat alon changes. The bilateral mastoid air cells and middle ear spaces are clear. No cranial fracture or scalp edema. There are old fractures of the bilateral nasal bones and right orbital medial wall. IMPRESSION: 1. Chronic ischemic changes without evidence of acute intracranial process. 2. Postoperative changes of right frontotemporal craniotomy with underlying encephalomalacia. 3. Old fractures of the bilateral nasal bones and right lamina papyracea.
[2025-03-10 14:26] LABS: Basophils # (auto) 0 10 ^3/uL (0-0.2); Basophils % (auto) 0.4 % (0.0-2.0); Eosinophils # (auto) 0 10 ^3/uL (0-0.8); Eosinophils % (auto) 0.2 % (0.0-7.0); Hematocrit 34.5 % (36.0-46.0); Hemoglobin 11.6 g/dL (12.2-16.2); Lymphocytes # (auto) 0.5 10 ^3/uL (0.4-5.4); Lymphocytes % (auto) 4.4 % (10.0-50.0); Mean Corpuscular Hemoglobin 29.1 pg (28.0-32.0); Mean Corpuscular Hgb Conc. 33.7 g/dL (32.0-36.0); Mean Corpuscular Volume 86.2 fL (80.0-100.0); Monocytes # (auto) 0.8 10 ^3/uL (0-1.3); Monocytes % (auto) 7.2 % (0.0-12.0); Neutrophils # (auto) 9.9 10 ^3/uL (1.6-8.6); Neutrophils % (auto) 87.8 % (37.0-80.0); Platelet Count (auto) 242 10^3/uL (140-450); Red Cell Distribution Width 13.5 % (11.8-14.3); White Blood Cell 11.3 10^3/uL (4.4-10.8)
[2025-03-10] MEDS: SODIUM CHLORIDE 0.9% 1,000 ML IV ONE ×2 (14:30→18:23)
[2025-03-10 14:33] LABS: Chloride 104 mmol/L (98-107); Potassium 3.7 mmol/L (3.5-5.1); Sodium 139 mmol/L (136-145)
[2025-03-10 14:34] LABS: Anion Gap 16 (5-15)
[2025-03-10 14:35] LABS: Calcium 9.9 mg/dL (8.7-10.4); Carbon Dioxide 19 mmol/L (20-31)
[2025-03-10 14:39] LABS: BUN/Creatinine Ratio 17.9 (10.0-20.0); Glucose 79 mg/dL (74-106)
[2025-03-10 14:51] LABS: Blood Urea Nitrogen 44 mg/dL (9-23)
[2025-03-10] MEDS ORDERED: DOCUSATE SOD 100 MG CAP PO PRN (16:30)
[2025-03-10] MEDS ORDERED: ACETAMINOPHEN 325 MG TAB PO PRN (16:30)
[2025-03-10] MEDS ORDERED: ONDANSETRON HCL 4 MG/2 ML VIAL IV PRN (16:30)
[2025-03-10 17:34] LABS: Opiate Scree,Urine Neg (NEGATIVE); Urine Bacteria FEW /hpf (None Seen); Urine Blood TRACE /uL (Negative); Urine Clarity Turbid (Clear); Urine Color Light-Yellow (Yellow); Urine Hyaline Cast FEW /lpf (0 - 2); Urine Protein, UAD TRACE (Negative); Urine Specific Gravity 1.012 (1.001-1.035); Urine Squamous Epithelial Cell None Seen /hpf (<5); Urine Urobilinogen Normal (Negative); Urine WBC 305 /HPF (0-5); Urine pH 5.5 (5.0-9.0)
[2025-03-10 17:35] LABS: Cannabinoid Screen, Urine Neg (NEGATIVE); Phencyclidine Screen, Urine Neg (NEGATIVE)
[2025-03-10 17:36] LABS: Amphetamine Screen, Urine Neg (NEGATIVE); Barbiturate Scree,Urine Neg (NEGATIVE); Benzodiazephine Screen, Urine Neg (NEGATIVE); Cocaine Screen, Urine Neg (NEGATIVE)
--- NOTE | 2025-03-10 18:04 | DVHHP2 ---
History of Present Illness Reason for Visit: Generalized Weakness History of Present Illness Dian Thompson is a 64-year-old female with past medical history of anxiety, seizures, depression, hypertension, hyperlipidemia, and CHF, who came to the hospital due to multiple falls. Patient does take multiple medications at home for pain, anxiety, depression and seizures. Patient is altered, she is able to tell me her name, but is repetitive with any other questions. She does state that she was not feeling well over the weekend. She states she had flu like symptoms and took medications. She can not tell me what medications. Patient's behavior in ER is erratic, she was throwing things and yelling at staff. Most of the history was obtained from the chart. Review of Systems Constitutional: Yes: Weakness, Malaise; No: Fever, Chills, Sweats, Other Eyes: No: Pain, Vision change, Conjunctivae inflammation, Eyelid inflammation, Other, Redness ENT: No: Ear pain, Ear discharge, Nose pain, Nose discharge, Nose congestion, Mouth pain, Mouth swelling, Throat pain, Throat swelling, Other Respiratory: No: Cough, Dry, Shortness of breath, SOB with excertion, Wheezing, Hemoptysis, Pleuritic Pain, Sputum, Wheezing, Other Cardiovascular: No: Chest Pain, Palpitations, Orthopnea, Paroxysmal Noc. Dyspnea, Edema, Lt Headedness, Other Gastrointestinal: No: Nausea, Vomiting, Abdominal Pain, Diarrhea, Constipation, Melena, Hematochezia, Other Genitourinary: No Dysuria, No Frequency, No Incontinence, No Hematuria, No Retention, No Other Musculoskeletal: leg pain (bilateral knees); No: other, neck pain, shoulder pain, arm pain, back pain, hand pain, foot pain Skin: No: Rash, Lesions, Jaundice, Bruising, Other Neurological: Incoordination, Other (multiple falls); No: Weakness, Numbness, Change in speech, Confusion, Seizures Allergies: Coded Allergies: No Known Drug Allergy (Verified Allergy, Unknown, 07/03/20) Exam Vital Signs Vital Signs Date Time Temp Pulse Resp B/P (MAP) Pulse Ox O2 Delivery O2 Flow Rate FiO2 03/10/25 12:58 99.6 87 12 103/74 (84) 100 99.6 General Appearance: Alert, moderate distress, Other (Oriented x 2) HEENT: Atraumatic, PERRLA Respiratory: Clear to auscultation, Normal air movement Cardiovascular: Regular rate, Normal S1, Normal S2 Abdominal: Normal bowel sounds, Soft, No hepatospenomegaly Extremities: No clubbing, No cyanosis, Other (swelling to bilateral knees, abrasion to left knee) Skin: No rashes, No breakdown, No significant lesion Psych/Mental Status: Other (altered, unable to hold a conversation) Labs/Xrays Labs Test 03/10/25 14:07 Range/Units White Blood Count 11.3 H 4.4-10.8 10^3/uL Red Blood Count 4.00 4.0-5.20 10^6/uL Hemoglobin 11.6 L 12.2-16.2 g/dL Hematocrit 34.5 L 36.0-46.0 % Mean Corpuscular Volume 86.2 80.0-100.0 fL Mean Corpuscular Hemoglobin 29.1 28.0-32.0 pg Mean Corpuscular Hemoglobin Concent 33.7 32.0-36.0 g/dL Red Cell Distribution Width 13.5 11.8-14.3 % Platelet Count 242 140-450 10^3/uL Mean Platelet Volume 8.2 6.9-10.8 fL Neutrophils (%) (Auto) 87.8 H 37.0-80.0 % Lymphocytes (%) (Auto) 4.4 L 10.0-50.0 % Monocytes (%) (Auto) 7.2 0.0-12.0 % Eosinophils (%) (Auto) 0.2 0.0-7.0 % Basophils (%) (Auto) 0.4 0.0-2.0 % Neutrophils # (Auto) 9.9 H 1.6-8.6 10 ^3/uL Lymphocytes # (Auto) 0.5 0.4-5.4 10 ^3/uL Monocytes # (Auto) 0.8 0-1.3 10 ^3/uL Eosinophils # (Auto) 0 0-0.8 10 ^3/uL Basophils # (Auto) 0 0-0.2 10 ^3/uL Nucleated Red Blood Cells 0.0 % Sodium Level 139 136-145 mmol/L Potassium Level 3.7 3.5-5.1 mmol/L Chloride Level 104 98-107 mmol/L Carbon Dioxide Level 19 L 20-31 mmol/L Anion Gap 16 H 5-15 Blood Urea Nitrogen 44 H 9-23 mg/dL Creatinine 2.46 H 0.550-1.02 mg/dL Glomerular Filtration Rate Calc 21 >90 mL/min BUN/Creatinine Ratio 17.9 10.0-20.0 Serum Glucose 79 74-106 mg/dL Calcium Level 9.9 8.7-10.4 mg/dL Troponin I High Sensitivity 39 *H </=34 ng/L B-Type Natriuretic Peptide 232.47 0-100 pg/mL EXAM: XY CHEST PORTABLE FINDINGS: No pneumothorax, consolidative infiltrates, or pulmonary edema. There is mild relative elevation of the right hemidiaphragm. The heart is enlarged. The aortic arch is calcific. No fractures are identified about the bony thorax. The right humeral head is high-riding, consistent with significant rotator cuff tendinopathy. IMPRESSION: 1. No acute intrathoracic process. 2. Cardiomegaly and atherosclerotic vascular disease. EXAM: CT HEAD WITHOUT CONTRAST FINDINGS: There are postoperative changes right frontotemporal craniotomy. There is encephalomalacia of the right frontal lobe, and to a much lesser extent right temporal lobe. There is mild global brain atrophy. 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 There may be an old lacunar infarct of the left berto versus artifactual appearance. There are small bilateral basal ganglia calcifications. No intracranial hemorrhage, mass, midline shift, hydrocephalus, or evidence of acute large vessel infarct. The partially-visualized paranasal sinuses are clear. There is irregularity of the cribriform plate, more so on the right, possibly due to old trauma or prior postoperative changes. The bilateral mastoid air cells and middle ear spaces are clear. No cranial fracture or scalp edema. There are old fractures of the bilateral nasal bones and right orbital medial wall. IMPRESSION: 1. Chronic ischemic changes without evidence of acute intracranial process. 2. Postoperative changes of right frontotemporal craniotomy with underlying encephalomalacia. 3. Old fractures of the bilateral nasal bones and right lamina papyracea. EXAM: XY R KNEE 3V XRAY FINDINGS/IMPRESSION: 1. No definite acute fracture of the right knee. 2. Severe tricompartmental degenerative changes of the right knee with marginal osteophytes, joint space narrowing, and extensive articular surface irregularities. 3. Calcifications medial to the medial femoral condyle may be due to old MCL injury. These are stable compared with prior CT imaging. 4. Large right knee effusion. EXAM: XY L KNEE 3V XRAY FINDINGS/IMPRESSION: No radiographic evidence of an acute osseous abnormality. There is no acute fracture, osseous malalignment, or aggressive focal osseous lesion. Moderate to severe medial weight-bearing compartment joint space loss. Tricompartmental marginal osteophytosis. Small to medium knee joint effusion. Diffusely decreased bone mineralization. EXAM: XY L TIB FIB XRAY COMPARISON: None FINDINGS/IMPRESSION: No acute fracture, malalignment, or aggressive osseous lesion. No abnormal periosteal reaction or sclerosis. Soft tissues are normal. Assessment/Plan Assessment/Plan Assessment: Syncope and collapse, Polypharmacy, UTI, Anxiety, Depression, Seizures, Hyperlipidemia, Plan: Admit to Med-Surg, Orthopedic surgery consult, IV antibiotics, IV hydration, Seizure precautions, Pain management, Home medications reconciled, Plan discussed with: Patient My Orders Orders - ZOE MATTHEWS Procedure Category Date Status Time Admit ADMIT 03/10/25 Transmitted 16:29 Code Status CODE 03/10/25 Transmitted 16:29 Ondansetron Hcl PHA 03/10/25 Transmitted (Zofran) 16:30 Docusate Sodium PHA 03/10/25 Transmitted Capsule (Colace 16:30 Fall Risk Precautions HARPREET 03/10/[address] 16:29 Complete Blood Count LAB 03/11/25 Verified 04:00 Comprehensive LAB 03/11/25 Verified Metabolic Panel 04:00 Cardiac DIET 03/10/25 Transmitted Diet-2gna,Lofat,Lochol Dinner Pt Request For Service PT 03/10/25 Transmitted 16:29 Condition: Serious HARPREET 03/10/25 Transmitted 16:29 Acetaminophen Tablet PHA 03/10/25 Transmitted (Tylenol Tablet) 16:30 Aspirin Enteric PHA 03/11/25 Transmitted Coated Tablet 10:00 Bumetanide Tablet PHA 03/10/25 Transmitted (Bumex Tablet) 22:00 Carbamazepine Tablet PHA 03/10/25 Transmitted (Tegretol Tablet) 22:00 Gabapentin Capsule PHA 03/10/25 Transmitted (Neurontin Capsule) 22:00 Hydrocodone-Acet PHA 03/10/25 Transmitted 7.5/325mg Tab ([place] 16:30 Oxybutynin Chloride PHA 03/11/25 Transmitted Tablet (Ditropan Tab 10:00 (Nf) Buspirone Hcl PHA 03/10/25 Transmitted (Buspirone Hydrochlor 22:00 (Nf) Fluoxetine Hcl PHA 03/11/25 Transmitted 10:00 (Nf) Folic Acid PHA 03/11/25 Transmitted 10:00 (Nf) Nabumetone PHA 03/10/25 Transmitted 22:00 (Nf) Simvastatin PHA 03/10/25 Transmitted 22:00 Date of Service: Mar 10, 2025 Billing Provider: ZOE MATTHEWS Common Visit Codes: [id number] INP/OBS CARE (MOD) ZOE MATTHEWS Mar 10, 2025 18:04
[2025-03-10] MEDS: cefTRIAXone 1GM/50ML D5W 50 ML IV ONE (18:23)
[2025-03-10] MEDS: HYDROcodone-ACET 7.5/325MG TAB PO PRN (18:23)
[2025-03-10 18:38] VITALS: RESP 18; O2SAT 95
--- NOTE | 2025-03-10 18:49 | ECG ---
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
[2025-03-10 21:00] VITALS: BP 117/56; PULSE 80; RESP 17; TEMP 98; O2SAT 94
[2025-03-10] MEDS: carBAMazepine 200 MG TAB PO SCH (21:28)
[2025-03-10] MEDS: GABAPENTIN 100 MG CAP PO SCH (21:28)
[2025-03-10] MEDS: ATORVASTATIN 20 MG TAB PO SCH (21:28)
[2025-03-10] MEDS: busPIRone HCL 10 MG TAB PO SCH (21:29)
[2025-03-10] MEDS: BUMETANIDE 1 MG TAB PO SCH (21:32)
[2025-03-11] VITALS (7 sets, daily range): BP systolic 114–136; BP diastolic 55–68; PULSE 73–87; RESP 16–18; TEMP 98.5–99.3; O2SAT 94–96
[2025-03-11] MEDS: guaiFENesin-DM 100/10mg/5ml SYR PO PRN (01:32)
[2025-03-11 07:14] LABS: Basophils # (auto) 0 10 ^3/uL (0-0.2); Basophils % (auto) 0.2 % (0.0-2.0); Eosinophils # (auto) 0.1 10 ^3/uL (0-0.8); Eosinophils % (auto) 1.1 % (0.0-7.0); Hematocrit 30.5 % (36.0-46.0); Hemoglobin 10.5 g/dL (12.2-16.2); Lymphocytes # (auto) 0.5 10 ^3/uL (0.4-5.4); Lymphocytes % (auto) 6.1 % (10.0-50.0); Mean Corpuscular Hemoglobin 29.6 pg (28.0-32.0); Mean Corpuscular Hgb Conc. 34.3 g/dL (32.0-36.0); Mean Corpuscular Volume 86.1 fL (80.0-100.0); Monocytes # (auto) 0.8 10 ^3/uL (0-1.3); Monocytes % (auto) 9.5 % (0.0-12.0); Neutrophils # (auto) 6.8 10 ^3/uL (1.6-8.6); Neutrophils % (auto) 83.1 % (37.0-80.0); Platelet Count (auto) 232 10^3/uL (140-450); Red Blood Cells 3.54 10^6/uL (4.0-5.20); Red Cell Distribution Width 13.8 % (11.8-14.3); White Blood Cell 8.1 10^3/uL (4.4-10.8)
[2025-03-11 07:36] LABS: Alanine Aminotransferase 39 U/L (7-40); Anion Gap 12 (5-15); BUN/Creatinine Ratio 26.6 (10.0-20.0); Calcium 9.6 mg/dL (8.7-10.4); Carbon Dioxide 22 mmol/L (20-31); Chloride 105 mmol/L (98-107); Glucose 100 mg/dL (74-106); Sodium 139 mmol/L (136-145); Total Protein 6.3 g/dL (5.7-8.2)
[2025-03-11 07:37] LABS: Albumin 3.9 g/dL (3.2-4.8); Aspartate Aminotransferase 31 U/L (<34)
[2025-03-11 07:40] LABS: Alkaline Phosphatase 132 U/L (46-116); Bilirubin, Total 0.3 mg/dL (0.2-1.0); Blood Urea Nitrogen 47 mg/dL (9-23); Potassium 3.2 mmol/L (3.5-5.1)
[2025-03-11] MEDS: FOLIC ACID 1 MG TAB PO SCH (09:25)
[2025-03-11] MEDS: ASPirin-EC 81 mg tab PO SCH (09:25)
[2025-03-11] MEDS: FLUoxetine HCL 20 MG CAP PO SCH (09:27)
[2025-03-11] MEDS: OXYBUTYNIN CHL 5 MG TAB PO SCH (09:27)
[2025-03-11] MEDS: cefTRIAXone 1GM/50ML D5W 50 ML IV SCH (09:31)
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
[2025-03-11] MEDS: POTASSIUM CHL 20 Meq TABLET PO ONE (15:45)
[2025-03-12 01:00] VITALS: BP 130/58; PULSE 72; RESP 19; TEMP 98.3; O2SAT 93
[2025-03-12 05:00] VITALS: BP 141/59; PULSE 95; RESP 19; TEMP 98.8; O2SAT 94
[2025-03-12 08:54] VITALS: BP 124/48; PULSE 69; RESP 18; TEMP 98.4; O2SAT 95
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
[2025-03-12 13:02] VITALS: BP 121/62; PULSE 84; RESP 16; TEMP 98.5; O2SAT 95
[2025-03-12 16:30] VITALS: BP 125/60; PULSE 75; RESP 18; TEMP 98.3; O2SAT 96
[2025-03-12 21:00] VITALS: BP 137/79; PULSE 76; RESP 15; TEMP 97.8; O2SAT 94
[2025-03-13] VITALS (7 sets, daily range): BP systolic 128–139; BP diastolic 62–78; PULSE 65–87; RESP 15–18; TEMP 97.6–99; O2SAT 93–96
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
[2025-03-13] MEDS ORDERED: POTASSIUM EFFERVESENT TAB 25 MEQ PO ONE (12:00)
[2025-03-13] MEDS: AZITHROMYCIN 500MG/ 250ML 250 ML IV ONE (12:56)
[2025-03-13 13:51] LABS: Chloride 103 mmol/L (98-107); Potassium 3.6 mmol/L (3.5-5.1); Sodium 140 mmol/L (136-145)
[2025-03-13 13:52] LABS: Anion Gap 13 (5-15); Carbon Dioxide 24 mmol/L (20-31)
[2025-03-13 13:53] LABS: Calcium 9.7 mg/dL (8.7-10.4)
[2025-03-13 13:57] LABS: BUN/Creatinine Ratio 28.6 (10.0-20.0)
[2025-03-13 13:59] LABS: Blood Urea Nitrogen 28 mg/dL (9-23); Glucose 127 mg/dL (74-106)
[2025-03-14 01:00] VITALS: BP 127/65; PULSE 76; RESP 18; TEMP 99.2; O2SAT 92
[2025-03-14 05:00] VITALS: BP 129/69; PULSE 75; RESP 18; TEMP 98.3; O2SAT 93
[2025-03-14 08:45] VITALS: BP 130/60; PULSE 77; RESP 17; TEMP 98.5; O2SAT 93
--- NOTE | 2025-03-14 10:01 | DVHINCON2 ---
Date of Service if different f: Mar 14, 2025 Consultation (HOME) Labs Laboratory Tests Test 03/10/25 14:07 03/10/25 17:12 03/10/25 18:13 03/11/25 06:53 B-Type Natriuretic Peptide 232.47 pg/mL (0-100) Urine Color Light-yellow (Yellow) Urine Clarity Turbid (Clear) Urine pH 5.5 (5.0-9.0) Urine Specific [place] 1.012 (1.001-1.035) Urine Protein Trace (Negative) Urine Ketones Negative (Negative) Urine Blood Trace /uL (Negative) Urine Nitrite 1+ (Negative) Urine Bilirubin Negative (Negative) Urine Urobilinogen Normal mg/dL (Negative) Urine Leukocyte Esterase 3+ /uL (Negative) Urine RBC 5 /hpf (0 - 4) Urine Microscopic WBC 305 /HPF (0-5) Urine Squamous Epithelial Cells None seen /hpf (<5) Urine Bacteria Few /hpf (None Seen) Urine Hyaline Casts Few /lpf (0 - 2) Urine Glucose Normal mg/dL (Normal) Urine Opiates Screen Neg (NEGATIVE) Urine Fentanyl Screen Neg (NEGATIVE) Urine Barbiturates Screen Neg (NEGATIVE) Urine Phencyclidine Screen Neg (NEGATIVE) Urine Amphetamines Screen Neg (NEGATIVE) Urine Benzodiazepines Screen Neg (NEGATIVE) Urine Cocaine Screen Neg (NEGATIVE) Urine Cannabinoids Screen Neg (NEGATIVE) Troponin I High Sensitivity 30 ng/L (</=34) White Blood Count 8.1 10^3/uL (4.4-10.8) Red Blood Count 3.54 10^6/uL (4.0-5.20) Hemoglobin 10.5 g/dL (12.2-16.2) Hematocrit 30.5 % (36.0-46.0) Mean Corpuscular Volume 86.1 fL (80.0-100.0) Mean Corpuscular Hemoglobin 29.6 pg (28.0-32.0) Mean Corpuscular Hemoglobin Concent 34.3 g/dL (32.0-36.0) Red Cell Distribution Width 13.8 % (11.8-14.3) Platelet Count 232 10^3/uL (140-450) Mean Platelet Volume 7.9 fL (6.9-10.8) Neutrophils (%) (Auto) 83.1 % (37.0-80.0) Lymphocytes (%) (Auto) 6.1 % (10.0-50.0) Monocytes (%) (Auto) 9.5 % (0.0-12.0) Eosinophils (%) (Auto) 1.1 % (0.0-7.0) Basophils (%) (Auto) 0.2 % (0.0-2.0) Neutrophils # (Auto) 6.8 10 ^3/uL (1.6-8.6) Lymphocytes # (Auto) 0.5 10 ^3/uL (0.4-5.4) Monocytes # (Auto) 0.8 10 ^3/uL (0-1.3) Eosinophils # (Auto) 0.1 10 ^3/uL (0-0.8) Basophils # (Auto) 0 10 ^3/uL (0-0.2) Nucleated Red Blood Cells 0.0 % Total Bilirubin 0.3 mg/dL (0.2-1.0) Aspartate Amino Transf (AST/SGOT) 31 U/L (<34) Alanine Aminotransferase (ALT/SGPT) 39 U/L (7-40) Alkaline Phosphatase 132 U/L (46-116) Total Protein 6.3 g/dL (5.7-8.2) Albumin 3.9 g/dL (3.2-4.8) Test 03/13/25 13:20 Sodium Level 140 mmol/L (136-145) Potassium Level 3.6 mmol/L (3.5-5.1) Chloride Level 103 mmol/L (98-107) Carbon Dioxide Level 24 mmol/L (20-31) Anion Gap 13 (5-15) Blood Urea Nitrogen 28 mg/dL (9-23) Creatinine 0.98 mg/dL (0.550-1.02) Glomerular Filtration Rate Calc 64 mL/min (>90) BUN/Creatinine Ratio 28.6 (10.0-20.0) Serum Glucose 127 mg/dL (74-106) Calcium Level 9.7 mg/dL (8.7-10.4) Microbiology Date/Time Source Procedure Growth Status 03/12/25 14:00 Urine - Midstream Clean Catch Urine Culture - Preliminary Resulted 03/11/25 14:25 Blood Blood Culture - Preliminary NO GROWTH AFTER 48 HOURS OF INCUBATION. Resulted Appetite: Fair Appearance: Stated age, Groomed Psychomotor activity: WNL Behavioral: Cooperative Eye contact: Appropriate Speech: WNL Affect: Mood Congruent Mood: Euthymic Thought processes: Linear/Goal-directed Thought content: WNL Suicidal ideations: Absent Homicidal ideations: Absent Orientation: Person, Place, Time, Situation Memory intact: Recent Intellect: Average Abstractability: WNL Concentration: Adequate Attention: Adequate Judgement: WNL Insight: Fair Vitals Vital Signs Date Time Temp Pulse Resp B/P (MAP) Pulse Ox O2 Delivery O2 Flow Rate FiO2 03/14/25 09:08 130/60 03/14/25 05:00 98.3 75 18 93 98.3 03/13/25 20:00 Room Air* 0 21 Current medications Current Medications Medications Dose Ordered Sig/Ginna Route Start Time Stop Time Status Last Admin Dose Admin Ondansetron HCl 4 mg Q4HP PRN IV 03/10/25 16:30 Docusate Sodium 100 mg BIDPRN PRN PO 03/10/25 16:30 Acetaminophen 650 mg Q6HP PRN PO 03/10/25 16:30 Aspirin 81 mg DAILYPRN PO 03/11/25 10:00 03/14/25 08:58 81 MG Bumetanide 1 mg BID PO 03/10/25 22:00 03/14/25 09:08 1 MG Carbamazepine 200 mg TID PO 03/10/25 22:00 03/14/25 05:31 200 MG Gabapentin 100 mg TID PO 03/10/25 22:00 03/14/25 05:31 100 MG Acetaminophen/ Hydrocodone Bitart 1 tab TID PRN PO 03/10/25 16:30 03/14/25 09:09 1 TAB Oxybutynin Chloride 5 mg DAILY PO 03/11/25 10:00 03/14/25 08:57 5 MG Buspirone HCl 15 mg BID PO 03/10/25 22:00 03/14/25 08:58 15 MG Fluoxetine HCl 80 mg DAILY PO 03/11/25 10:00 03/14/25 08:59 80 MG Folic Acid 1 mg DAILY PO 03/11/25 10:00 03/14/25 08:56 1 MG Patient Own Medication 1 tab BID PO 03/10/25 22:00 Atorvastatin Calcium 10 mg HS PO 03/10/25 22:00 03/13/25 21:28 10 MG Ceftriaxone Sodium 50 ml @ 100 mls/hr DAILY@09 IV 03/11/25 09:00 03/14/25 08:56 100 MLS/HR Guaifenesin/ Dextromethorphan 10 ml Q4HP PRN PO 03/11/25 01:30 03/13/25 22:10 10 ML Azithromycin 250 ml @ 125 mls/hr DAILY IV 03/14/25 10:00 Treatment plan discussed: With staff Medication adjusted: No Diagnosis: unspecified depression, generalized anxiety Plan : This is a 64-year-old female here for generalized weakness. Patient is doing well and stable on current psychotropic medications. Pt reports current regime of Prozac 80mg po daily, Buspar 15mg po BID for many years, denies any side effects Patient may continue current regime and follow up with her prescriber She may discharge after medical clearance here History of Present Illness Reason for Consult : hx of depression, anxiety and polypharmacy HPI : This is a 64-year-old female with history of depression and anxiety, presented to the hospital for generalized weakness and falls at home. Patient is evaluated via Telepsychiatry. She reports feeling weak for the last couple of days, trouble getting up from the couch. She does report being told that she has a lung infection and virus h ere. She denies being depressed or anxious currently. She feels her symptoms are well controlled on her current regimen. She reports mood as "ok" because she feels weak, tired and has not taken her shower since admission here. She denies suicidal or homicidal ideation. She denies anhedonia or hopelessness. She denies any history of psychosis or kisha, currently no auditory visual hallucinations or paranoia thoughts. Past Psychiatric History : She reports seeing a therapist weekly and a mental health provider. She is prescribed Prozac 80 mg daily, BuSpar 15 mg b.i.d. She receives Tegretol for seizures. Patient is unable to recall any other psychotropic medications at this time. She denies past psych admissions or holds. She denies past suicide attempts. Past Medical History : She reports hx of seizures, HTN, hyperlipemia, herniated disc Social History : She lives alone, was in the past. She has an adult son and 5 grandchildren. She has [employer] workers that come 5 times per week to help her at home. She reports history of using alcohol, sober 17months. She was using marijuana and sober 3 years. she had a long history of nicotine use, but has quit. She denies any known family history. ELICEO CARDONA DNP Mar 14, 2025 10:01
[2025-03-14] MEDS: AZITHROMYCIN 500MG/ 250ML 250 ML IV SCH (10:49)
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
[2025-03-14 12:50] VITALS: BP 119/64; PULSE 86; RESP 17; TEMP 97.9; O2SAT 95
[2025-03-14 16:55] VITALS: BP 118/66; PULSE 71; RESP 17; TEMP 99; O2SAT 92
[2025-03-14 21:00] VITALS: BP 140/54; PULSE 70; RESP 18; TEMP 98; O2SAT 92
[2025-03-15 01:00] VITALS: BP 121/70; PULSE 68; RESP 18; TEMP 98.1; O2SAT 95
[2025-03-15 05:00] VITALS: BP 128/71; PULSE 77; RESP 18; TEMP 97.6; O2SAT 94
[2025-03-15 09:00] VITALS: BP 125/64; PULSE 79; RESP 16; TEMP 97.9; O2SAT 94
[2025-03-15 13:00] VITALS: BP 136/54; PULSE 75; RESP 18; TEMP 97.8; O2SAT 95
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
--- NOTE | 2025-03-15 15:15 | MEDREC ---
[facility] ASP Intervention Section I [facility] ASP Intervention: Review courses of therapy (DUE TO PROLONG QTc > 500 PLEASE CONSIDER SWITCHING AZITHROMYCIN TO DOXYCYCLINE ) CARMENZA ERAZO PHARMACIST Mar 15, 2025 15:15
[2025-03-15 16:04] LABS: COVID19 ANTIGEN SOFIA FIA NEGATIVE (NEGATIVE)
== END 2025-03-15 15:46 | DRG 871 ==
LOC: EDBD 12:42 → EDUNIT# 12:42 → ER 12:42 → OVERFLOW 16:29 → WEST WING 18:47
PROVIDERS: ADMIT Family Medicine; ATTEND Family Medicine
PROC: 05HA33Z Insertion of Infusion Device into Left Brachial Vein, Percutaneous Approach (ICD-10-PCS; principal; 2025-03-14)
PROC: B54NZZA Ultrasonography of Left Upper Extremity Veins, Guidance (ICD-10-PCS; 2025-03-14)
DX: A41.9 Sepsis, unspecified organism (principal); J15.69 Pneumonia due to other Gram-negative bacteria; N17.0 Acute kidney failure with tubular necrosis; J15.9 Unspecified bacterial pneumonia; N39.0 Urinary tract infection, site not specified; I13.0 Hypertensive heart and chronic kidney disease with heart failure and stage 1 through stage 4 chronic kidney disease, or unspecified chronic kidney disease; Z51.5 Encounter for palliative care; I50.9 Heart failure, unspecified; R56.9 Unspecified convulsions; F32.A Depression, unspecified; E11.22 Type 2 diabetes mellitus with diabetic chronic kidney disease; E78.5 Hyperlipidemia, unspecified; Z20.822 Contact with and (suspected) exposure to COVID-19; F41.1 Generalized anxiety disorder; R29.6 Repeated falls; Z87.891 Personal history of nicotine dependence; Z79.899 Other long term (current) drug therapy
CPT/HCPCS: 36415; 70450; 71045; 73562; 73590; 80048; 80053; 80307; 81001; 83880; 84484; 85025; 87040; 87086; 87426; 93005; 96361; 96365; 97110; 97116; 97163; 97530; 99291; G0378